=== PATIENT | male | born 1985 | race Caucasian/White ===

== ENCOUNTER 2023-10-09 22:40 | Emergency (ER) | payer OTHER, SELFPAY ==
[2023-10-09 23:21] VITALS: BP 156/97; PULSE 88; RESP 18; TEMP 36.6; O2SAT 96; BMI 30.7
[2023-10-09 23:49] LABS: Internal Control Within Normal Limits; Strep A Antigen Screen Negative
--- NOTE | 2023-10-10 00:14 | PC.NURSE ---
Pt reports sore throat and sinus pressure not relieved with prescribed analgesics. Throat is red and irritated upon assessment, pt able to manage airway. Pt had procedure on deviated septum and had uvula trimmed this past week.
--- NOTE | 2023-10-10 00:23 | ED_ITS ---
HPI - General Adult General Chief complaint: Dental/Oral Stated complaint: Sore Throat, Post Operative Pain Time Seen by Provider: 10/10/23 00:20 Source: patient Mode of arrival: walk-in History of Present Illness HPI narrative: sinus nasal surgery and uvulectomy this past week by ENT. has nasal stents in place. Now presents complaining of increased sinus pressure. No fever or dizziness. Has frontal headache. No nausea Related Data Home Medications Medication Instructions Recorded Confirmed hydrocodone 5 mg-acetaminophen 325 1 tab PO Q4H PRN pain 10/09/23 10/09/23 mg tablet Allergies Allergy/AdvReac Type Severity Reaction Status Date / Time No Known Drug Allergies Allergy Verified 10/09/23 23:30 Review of Systems ROS Status of ROS 10 or more systems reviewed and unremark able except as noted in history and below [facility] Medical History (Updated 10/10/23 @ 06:32 by Donald Holloway MD) Deviated nasal septum ?J34.2 - Deviated nasal septum (ICD-10) Surgical History (Updated 10/09/23 @ 23:47 by Geetha Maldonado) H/O sinus surgery ?Z98.890 - Other specified postprocedural states (ICD-10) Social History Smoking status: Never smoker Exam Narrative Exam Narrative: maxillary sinus tenderness plastic nasal stents in place Constitutional Vital Signs, click to edit/add: Last Vital Signs Temp 97.9 F 10/09/23 23:21 Pulse 93 H 10/10/23 04:09 Resp 16 10/10/23 04:09 BP 136/98 H 10/10/23 04:09 Pulse Ox 96 10/10/23 04:09 O2 Del Method Room Air 10/10/23 04:09 Common normals: no apparent distress, average body habitus, oriented x3, no limitations, healthy appearing, alert and well nourished [facility] Common normals: normocephalic and head/scalp atraumatic Face and sinus: normal facial exam Eye Common normals: PERRL and EOMs intact bilaterally Pupil: PERRL Respiratory Common normals: normal respiratory effort, no retractions and no use of accessory muscles Cardio Common normals: regular rate, regular rhythm, S1 normal heart sound and S2 normal heart sound GI Common normals: Normal to inspection, nondistended, normoactive bowel sounds present, soft to palpation and non-tender Extremity Common normals: normal to inspection and full ROM Neuro Common normals: oriented x3, moves all extremities and no focal motor deficits Psych Appearance: grossly normal Course Vital Signs Vital signs: Vital Signs Temperature 97.9 F 10/09/23 23:21 Pulse Rate 88 10/09/23 23:21 Respiratory Rate 18 10/09/23 23:21 Blood Pressure 156/97 H 10/09/23 23:21 Pulse Oximetry 96 10/09/23 23:21 Oxygen Delivery Method Room Air 10/09/23 23:21 Temperature 97.9 F 10/09/23 23:21 Pulse Rate 93 H 10/10/23 04:09 Respiratory Rate 16 10/10/23 04:09 Blood Pressure 136/98 H 10/10/23 04:09 Pulse Oximetry 96 10/10/23 04:09 Oxygen Delivery Method Room Air 10/10/23 04:09 Medical Decision Making MDM Narrative Medical decision making narrative: patient is s/p surgery as above by ENT one week ago. Has nasal plastic stents in place. CT with evidence of chronic maxillary sinusitis. No acute findings. Patient medicated for his pain with solumedrol and Toradol. He is feeling better. Discharged home to follow up with ENT Lab Data Labs: Lab Results 10/09/23 10/10/23 Range/Units 23:35 00:45 WBC 8.5 (4.0-11.0) 10^3/uL RBC 5.23 (4.70-6.10) 10^6/uL Hgb 15.4 (14.0-18.0) g/dL Hct 44.9 (42.0-54.0) % MCV 85.9 (80.0-94.0) fL MCH 29.4 (25.9-34.0) pg MCHC 34.3 (29.9-35.2) g/dL RDW 12.2 (11.0-15.0) % Plt Count 272 (150-450) 10^3/uL MPV 11.0 (9.5-13.5) fL Neut % (Auto) 43.6 (43.0-75.0) % Lymph % (Auto) 29.6 (20.5-60.0) % [place] % (Auto) 8.5 (1.7-12.0) % Eos % (Auto) 17.4 H (0.9-7.0) % Baso % (Auto) 0.8 (0.2-2.0) % Neut # (Auto) 3.7 (1.4-6.5) 10^3/uL Lymph # (Auto) 2.5 (1.2-3.8) 10^3/uL [place] # (Auto) 0.7 (0.3-0.8) 10^3/uL Eos # (Auto) 1.5 H (0.0-0.7) 10^3/uL Baso # (Auto) 0.1 (0.0-0.1) 10^3/uL Abs Immat Gran (auto) 0.01 (0.00-0.03) 10^3/uL Imm/Tot Granulo (auto) 0.1 (0.0-0.5) % Sodium 136 (136-145) mmol/L Potassium 3.7 (3.5-5.1) mmol/L Chloride 99 (98-107) mmol/L Carbon Dioxide 31.9 (21.0-32.0) mmol/L Anion Gap 8.8 BUN 22.0 H (7.0-18.0) mg/dL Creatinine 0.89 (0.70-1.30) mg/dL Est GFR ( Amer) >60 (>=60) Est GFR (Non-Af Amer) >60 (>=60) BUN/Creatinine Ratio 24.7 Glucose 112 H (74-106) mg/dL Calcium 9.4 (8.5-10.1) mg/dL Streptococcus Screen Negative Imaging Data Chest x-ray: Radiologist's impression: Name: JENI TERRAZAS MRN: [id number] date: 1985 Sex: M Assigned Patient Location: ER Current Patient Location: ER Accession/Order Number: [id number] Exam Date: 10/10/2023 00:50 Report Date: 10/10/2023 01:26 At the request of: DONALD HOLLOWAY Procedure: CT soft tissue neck w con EXAMINATION: CT soft tissue neck w con HISTORY: post op pain ; sinus surgery and uvula trimmed last week; sore throat, swollen glands, headache COMPARISON: No relevant comparison available. TECHNIQUE: Axial, Coronal, and Sagittal CT images created with IV contrast. Dose reduction techniques were achieved by using automated exposure control and/or adjustment of mA and/or kV according to patient size and/or use of iterative reconstruction technique. FINDINGS: NASOPHARYNX: No asymmetry of the fossae of Rosenmuller and torus tubarius. ORAL CAVITY: No visible mass. OROPHARYNX: No asymmetry of the facial and lingual tonsils. HYPOPHARYNX: No mass or other visible lesion. LARYNX: No mass or asymmetry of the vocal cords. SINUSES: Mucosal thickening within the maxillary sinuses. NECK GLANDS: No visible abnormality of the parotid, submandibular, and thyroid glands. LYMPH NODES: No pathological-appearing or enlarged lymph nodes. VASCULATURE: No suspicious abnormality. BONES: C6-C7 marked degenerative disc disease with large posterior disc-osteophyte complex narrowing the central canal and bilateral foramen. OTHER: Geographic shaped 1.5 cm opacity within right lung apex. CT/CT soft tissue neck w con IMPRESSION: 1. No abscess, fluid collection, or significant inflammatory changes. 2. Bilateral maxillary chronic sinusitis. 3. Marked degenerative disc disease C6-C7. Electronically authenticated by: DEEPAK JIMENEZ Date: 10/10/2023 01:26 Dictated By: Deepak Jimenez M.D. Signed By: Discharge Plan Discharge Chief Complaint: Dental/Oral Clinical Impression: Chronic sinusitis, Frontal sinus pain Patient Disposition: Home, Self-Care Time of Disposition Decision: 04:00 Condition: Fair Mode of Transportation: Private Vehicle Prescriptions / Home Meds: No Action hydrocodone-acetaminophen 5-325 mg tablet 1 tab PO Q4H PRN (Reason: pain) Patient Comments: pt has been taking 1/2 ta Instructions: Rhinosinusitis (ED) Additional Instructions: follow up with your surgeon Stand Alone Forms: Portal Instructions Referrals: Physician,Non-Staff, MD [Primary Care Provider] - 1 week Discharge Date/Time: 10/10/23 04:12
--- NOTE | 2023-10-10 00:26 | CT_ITS ---
[address] [address] Patient Name: JENI TERRAZAS MRN: [id number] date: 1985 Sex: M Assigned Patient Location: ER Current Patient Location: ER Accession/Order Number: [id number] Exam Date: 10/10/2023 00:50 Report Date: 10/10/2023 01:26 At the request of: SANCHO ESCALANTE Procedure: CT soft tissue neck w con EXAMINATION: CT soft tissue neck w con HISTORY: post op pain ; sinus surgery and uvula trimmed last week; sore throat, swollen glands, headache COMPARISON: No relevant comparison available. TECHNIQUE: Axial, Coronal, and Sagittal CT images created with IV contrast. Dose reduction techniques were achieved by using automated exposure control and/or adjustment of mA and/or kV according to patient size and/or use of iterative reconstruction technique. FINDINGS: NASOPHARYNX: No asymmetry of the fossae of Rosenmuller and torus tubarius. ORAL CAVITY: No visible mass. OROPHARYNX: No asymmetry of the facial and lingual tonsils. HYPOPHARYNX: No mass or other visible lesion. LARYNX: No mass or asymmetry of the vocal cords. SINUSES: Mucosal thickening within the maxillary sinuses. NECK GLANDS: No visible abnormality of the parotid, submandibular, and thyroid glands. LYMPH NODES: No pathological-appearing or enlarged lymph nodes. VASCULATURE: No suspicious abnormality. BONES: C6-C7 marked degenerative disc disease with large posterior disc-osteophyte complex narrowing the central canal and bilateral foramen. OTHER: Geographic shaped 1.5 cm opacity within right lung apex. CT/CT soft tissue neck w con IMPRESSION: 1. No abscess, fluid collection, or significant inflammatory changes. 2. Bilateral maxillary chronic sinusitis. 3. Marked degenerative disc disease C6-C7. Electronically authenticated by: DENISSE MIRELES Date: 10/10/2023 01:26
[2023-10-10] MEDS: METHYLPREDNISOLONE SOD SUCC PF 125 MG/2 ML VIAL IVP (00:49)
[2023-10-10 01:06] LABS: Basophils Absolute Auto 0.1 10^3/uL (0.0-0.1); Basophils Percent Auto 0.8 % (0.2-2.0); Eosinophils Absolute Auto 1.5 10^3/uL (0.0-0.7); Eosinophils Percent Auto 17.4 % (0.9-7.0); Hematocrit 44.9 % (42.0-54.0); Hemoglobin 15.4 g/dL (14.0-18.0); Immature Granulocytes Abs Auto 0.01 10^3/uL (0.00-0.03); Immature Granulocytes Pct Auto 0.1 % (0.0-0.5); Lymphocytes Absolute Auto 2.5 10^3/uL (1.2-3.8); Lymphocytes Percent Auto 29.6 % (20.5-60.0); Mean Corpuscular HGB Conc 34.3 g/dL (29.9-35.2); Mean Corpuscular Hemoglobin 29.4 pg (25.9-34.0); Mean Corpuscular Volume 85.9 fL (80.0-94.0); Monocytes Absolute Auto 0.7 10^3/uL (0.3-0.8); Monocytes Percent Auto 8.5 % (1.7-12.0); Neutrophils Absolute Auto 3.7 10^3/uL (1.4-6.5); Neutrophils Percent Auto 43.6 % (43.0-75.0); Platelet Count 272 10^3/uL (150-450); Red Blood Count 5.23 10^6/uL (4.70-6.10); Red Cell Distribution Width 12.2 % (11.0-15.0); White Blood Count 8.5 10^3/uL (4.0-11.0)
[2023-10-10 01:14] LABS: Anion Gap 8.8; BUN Creatinine Ratio 24.7; Calcium 9.4 mg/dL (8.5-10.1); Carbon Dioxide 31.9 mmol/L (21.0-32.0); Chloride 99 mmol/L (98-107); Estimated GFR (African America >60 (>=60); Estimated GFR (Non-African Ame >60 (>=60); Glucose 112 mg/dL (74-106); Potassium 3.7 mmol/L (3.5-5.1); Sodium 136 mmol/L (136-145)
[2023-10-10] MEDS: KETOROLAC TROMETHAMINE 30 MG/ML VIAL IVP (02:19)
[2023-10-10] MEDS: KETOROLAC TROMETHAMINE 10 MG TABLET PO (04:08)
[2023-10-10 04:09] VITALS: BP 136/98; PULSE 93; RESP 16; O2SAT 96
== END 2023-10-10 04:12 | disposition home or self-care (01) ==
PROVIDERS: Emergency Provider Internal Medicine
DX: R51.9 Headache, unspecified (principal); J32.0 Chronic maxillary sinusitis; Z98.890 Other specified postprocedural states; M50.30 Other cervical disc degeneration, unspecified cervical region
CPT/HCPCS: 36415; 70491; 80048; 85025; 87070; 87880; 96374; 96375; 99284; J2930; Q9967

== ENCOUNTER 2024-04-29 18:24 | Emergency (ER) | payer OTHER, SELFPAY ==
[2024-04-29 18:29] VITALS: BP 136/85; PULSE 88; TEMP 36.8; O2SAT 98; BMI 30.7
--- NOTE | 2024-04-29 18:32 | PC.NURSE ---
red raised rash to bilat arms, started yesterday. Er DR assessment in triage room at this time
--- NOTE | 2024-04-29 18:39 | ED_ITS ---
HPI HPI - General Adult General Chief complaint: Skin/Abscess/Foreign Body Stated complaint: SKIN Time Seen by Provider: 04/29/24 18:28 Source: patient Mode of arrival: walk-in History of Present Illness HPI narrative: 38-year-old male to the emergency department chief complaint of exposure to poison ju. Patient reports that yesterday he was taking down some andrea and been exposed to poison ju as he now has a erythematous rash to his forearms that are exposed. Similar to past episodes of poison ju. No medical problems. Related Data Home Medications ?Medication ?Instructions ?Recorded ?Confirmed hydrocodone 5 mg-acetaminophen 325 1 tab PO Q4H PRN pain 10/09/23 10/09/23 mg tablet Allergies Allergy/AdvReac Type Severity Reaction Status Date / Time No Known Drug Allergies Allergy Verified 10/09/23 23:30 Opioid HPI Opioid Management Most Recent Opioid Data: Last Pain Scale 8 10/10/23 02:19 Review of Systems ROS Status of ROS 10 or more systems reviewed and unremark able except as noted in history and below PFSH [facility] Medical History (Updated 04/29/24 @ 18:34 by Adrian Lr MD) Deviated nasal septum ?J34.2 - Deviated nasal septum (ICD-10) Surgical History (Updated 10/09/23 @ 23:47 by Geetha Maldonado) H/O sinus surgery ?Z98.890 - Other specified postprocedural states (ICD-10) Social History Smoking status: Never smoker Exam Narrative Exam Narrative: VITALS: I have reviewed the triage vital signs. GENERAL: Well developed, well appearing adult in no acute distress. NEURO: Alert and oriented. Moves all extremities. Face is symmetric and expressive. EYES: PERRL. No scleral icterus or conjunctival injection. No discharge. HENT: Normocephalic, atraumatic. Hearing is grossly intact. Nares grossly patent and without discharge. Mucous membranes moist. NECK: No JVD. Patient moves neck without restriction. EXTREMITIES: Symmetric muscle bulk. No joint swelling. No clubbing, cyanosis, or deformity. SKIN: Warm and dry. Normal turgor. No rash or lesions appreciated. Contact dermatitis to the forearms. PSYCH: Mood, affect, and interaction is appropriate to the setting. Constitutional Vital Signs, click to edit/add: Last Vital Signs Temp 98.2 F 04/29/24 18:29 Pulse 88 04/29/24 18:29 Resp 16 04/29/24 18:29 BP 136/85 04/29/24 18:29 Pulse Ox 98 04/29/24 18:29 O2 Del Method Room Air 04/29/24 18:29 Course Vital Signs Vital signs: Vital Signs Temperature 98.2 F 04/29/24 18:29 Pulse Rate 88 04/29/24 18:29 Respiratory Rate 16 04/29/24 18:29 Blood Pressure 136/85 04/29/24 18:29 Pulse Oximetry 98 04/29/24 18:29 Oxygen Delivery Method Room Air 04/29/24 18:29 Temperature 98.2 F 04/29/24 18:29 Pulse Rate 88 04/29/24 18:29 Respiratory Rate 16 04/29/24 18:29 Blood Pressure 136/85 04/29/24 18:29 Pulse Oximetry 98 04/29/24 18:29 Oxygen Delivery Method Room Air 04/29/24 18:29 Medical Decision Making MDM Narrative Medical decision making narrative: Well-appearing 38-year-old male to the emergency department chief complaint of poison ju exposure. He has obvious contact dermatitis to the forearms. Kenalog and dexamethasone given. Follow-up with PCP. Return precaution discussed. All questions were answered. Patient was discharged home. Discharge Plan Discharge Stand Alone Forms: Portal Instructions Chief Complaint: Skin/Abscess/Foreign Body Clinical Impression: Poison ju Patient Disposition: Home, Self-Care Time of Disposition Decision: 18:34 Condition: Good Mode of Transportation: Private Vehicle Prescriptions / Home Meds: No Action hydrocodone-acetaminophen 5-325 mg tablet 1 tab PO Q4H PRN (Reason: pain) Patient Comments: pt has been taking 1/2 ta Print Language: Italian Instructions: Poison Ju (ED) Referrals: Physician,Non-Staff, MD [Primary Care Provider] - 1 week
[2024-04-29] MEDS: DEXAMETHASONE SOD PHOS 10 MG/ML VIAL PO (18:51)
[2024-04-29] MEDS: TRIAMCINOLONE ACETONIDE 40 MG/ML VIAL IM (18:52)
== END 2024-04-29 18:55 | disposition home or self-care (01) ==
PROVIDERS: Emergency Provider Student in an Organized Health Care Education/Training Program
DX: L23.7 Allergic contact dermatitis due to plants, except food (principal)
CPT/HCPCS: 96372; 99284; J1100; J3301

== ENCOUNTER 2024-05-21 00:08 | Emergency (ER) | payer OTHER, SELFPAY ==
[2024-05-21 00:14] VITALS: BP 132/81; PULSE 85; TEMP 36.7; BMI 30.7
--- OUTSIDE RECORDS SUMMARY | 2024-05-21 00:25 | XMS_ITS | CCD ---
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 [place], [place] [address]Dr. Manuel Harrison CT ABD/PELVIS WO CONon 08-25 CT ABD/PELVIS WO CON EXAMINATION: CT ABD/PELVIS WO CON, 08/24/2022 10:02 PM EST HISTORY: CALCULUS OF KIDNEY COMPARISON: None. TECHNIQUE: CT scan of the abdomen and pelvis was performed without IV contrast. CT dose reduction technique was used, including Automated Exposure Control. FINDINGS: There is mild bibasilar atelectasis. There are nodular densities in the right lower lobe measuring up to 0.9 cm (series 3, image 21). Abdomen: Please note that the sensitivity for detection of focal lesions or vascular disease is markedly reduced without intravenous contrast. The liver and spleen are unremarkable. There is no intra or extrahepatic biliary duct dilatation. The gallbladder is unremarkable. There is a 2 mm nonobstructive left renal calculus. Otherwise, the pancreas, adrenal glands, kidneys, and bowel loops, including the appendix, are unremarkable. There is no mesenteric or retroperitoneal lymphadenopathy. Pelvis: The bladder and rectum are unremarkable. There is no iliac or inguinal lymphadenopathy. There is mild atherosclerotic disease. Bone windows show no aggressive osseous lesions. IMPRESSION: 1. Nonobstructive left renal calculus with no ureteral calculus seen. 2. Normal appendix. 3. Nodular densities in the right lower lobe measuring up to 0.9 cm. This could represent developing infection. Consider follow-up imaging to document resolution as clinically indicated. Electronically authenticated by: Lauren LOVE Date: 2022-08-24 23:23 Normal [facility] ER URINE PROFILEon 2 Bilirubin Ql (U) Negative Normal NEGATIVE [facility] Comment on above: Performed By: #### E RUR #### [facility] [address] [place] [address] Dr. Manuel Harrison Clarity (U) CLEAR Normal CLEAR [facility] Comment on above: Performed By: #### E RUR #### [facility] [address] [place] [address] Dr. Manuel Harrison Color (U) YELLOW Normal YELLOW [facility] Comment on above: Performed By: #### E RUR #### [facility] [address] [place] [address] Dr. Manuel Harrison ERUAHD A micrscopic examina tion will be performed if indicated. Normal [facility] Comment on above: Performed By: #### E RUR #### [facility] [address] [place] [address] Dr. Manuel Harrison Glucose Ql (U) Negative Normal NEGATIVE [facility] Comment on above: Performed By: #### E RUR #### [facility] [address] [place] [address] Dr. Manuel Harrison Hemoglobin Ql (U) Negative Normal NEGATIVE [facility] Comment on above: Performed By: #### E RUR #### [facility] [address] [place] [address] Dr. Manuel Harrison Ketones Ql (U) Negative Normal NEGATIVE [facility] Comment on above: Performed By: #### E RUR #### [facility] [address] [place] [address] Dr. Manuel Harrison LEUKOCYTES Negative Normal NEGATIVE [facility] Comment on above: Performed By: #### E RUR #### [facility] [address] [place] [address] Dr. Manuel Harrison Nitrite Ql (U) Negative Normal NEGATIVE [facility] Comment on above: Performed By: #### E RUR #### [facility] [address] [place] [address] Dr. Manuel Harrison pH (U) 7.0 [pH] Normal 5-9 [facility] Comment on above: Performed By: #### E RUR #### [facility] [address] [place] [address] Dr. Manuel Harrison SPEC GRAVITY 1.025 Normal 1.005-<=1.02 5 [facility] Comment on above: Performed By: #### E RUR #### [facility] [address] [place] [address] Dr. Manuel Harrison UA PROTEIN Negative Normal NEGATIVE/ TRACE [facility] Comment on above: Performed By: #### E RUR #### [facility] [address] [place] [address] Dr. Manuel Harrison UR MICRO IND NOT INDICATED Normal [facility] Comment on above: Performed By: #### E RUR #### [facility] [address] [place] [address] Dr. Manuel Harrison Urobilinogen Qn (U) 4 {Chika'U}/dL Abnormal 0.2 - 1.0 [facility] Comment on above: Performed By: #### E RUR #### [facility] [address] [place] [address] Dr. Manuel Harrison PROF 14(COMP METB)on 022 Albumin [Mass/Vol] 3.9 g/dL Normal 3.4-5.0 [facility] Comment on above: Performed By: #### C MP #### [facility] [address] [address] [address] Manuel Harrison Albumin/Globulin [Mass ratio] 1.2 {ratio} Normal [facility] Comment on above: Performed By: #### C MP #### [facility] [address] [address] [address] Manuel Harrison ALP [Catalytic activity/Vol] 56 U/L Normal 46-116 [facility] Comment on above: Performed By: #### C MP #### [facility] [address] [place] [address] Dr. Manuel Harrison ALT [Catalytic activity/Vol] 38 U/L Normal 16-63 [facility] Comment on above: Performed By: #### C MP #### [facility] [address] [address] [address] Manuel Harrison Anion gap [Moles/Vol] 8.6 mmol/L Normal [facility] Comment on above: Performed By: #### C MP #### [facility] [address] [place] [address] Dr. Manuel Harrison AST [Catalytic activity/Vol] 25 U/L Normal 15-37 [facility] Comment on above: Performed By: #### C MP #### [facility] [address] [address] [address] Manuel Harrison Bilirubin [Mass/Vol] 0.4 mg/dL Normal 0.2-1.0 [facility] Comment on above: Performed By: #### C MP #### [facility] [address] [place] [address] Dr. Manuel Harrison Calcium [Mass/Vol] 8.7 mg/dL Normal 8.5-10.1 [facility] Comment on above: Performed By: #### C MP #### [facility] [address] [place] [address] Dr. Manuel Harrison Chloride [Moles/Vol] 105 mmol/L Normal 98-107 [facility] Comment on above: Performed By: #### C MP #### [facility] [address] [address] [address] Manuel Harrison CO2 [Moles/Vol] 27.8 mmol/L Normal 21.0-32.0 [facility] Comment on above: Performed By: #### C MP #### [facility] [address] [address] [address] Manuel Harrison Creatinine [Mass/Vol] 1.00 mg/dL Normal 0.70-1.30 [facility] Comment on above: Performed By: #### C MP #### [facility] [address] [place] [address] Dr. Manuel Harrison EGFR-AF ENGLISH >60 Normal >=60 [facility] Comment on above: Performed By: #### C MP #### [facility] [address] [place] [address] Dr. Manuel Harrison EGFR-NON AF ENGLISH >60 Normal >=60 [facility] Comment on above: Performed By: #### C MP #### [facility] [address] [address] [address] Manuel Harrison Globulin (S) [Mass/Vol] 3.3 g/dL Normal [facility] Comment on above: Performed By: #### C MP #### [facility] [address] [place] [address] Dr. Manuel Harrison Glucose [Mass/Vol] 108 mg/dL Critically high 74-106 [facility] Comment on above: Performed By: #### C MP #### [facility] [address] [place] [address] Dr. Manuel Harrison Potassium [Moles/Vol] 3.4 mmol/L Critically low 3.5-5.1 [facility] Comment on above: Performed By: #### C MP #### [facility] [address] [place] [address] Dr. Manuel Harrison Protein [Mass/Vol] 7.2 g/dL Normal 6.4-8.2 [facility] Comment on above: Performed By: #### C MP #### [facility] [address] [address] [address] Manuel Harrison Sodium [Moles/Vol] 138 mmol/L Normal 136-145 [facility] Comment on above: Performed By: #### C MP #### [facility] [address] [address] [address] Manuel Harrison Urea nitrogen [Mass/Vol] 21.0 mg/dL Critically high 7.0-18.0 [facility] Comment on above: Performed By: #### C MP #### [facility] [address] [address] [address] Manuel Harrison Urea nitrogen/Creatini ne [Mass ratio] 21.0 mg/mg Normal [facility] Comment on above: Performed By: #### C MP #### [facility] [address] [address] ANKLE LT WO CONon 022 CT ANKLE LT WO CON EXAMINATION: CT ANKLE LT WO CON HISTORY: Pseudarthrosis after fusion or arthrodesis COMPARISON: XR foot left 03/17/2022, 01/18/2022, CT ankle left 11/24/2021 TECHNIQUE: Multi-planar CT images were created without IV contrast. Dose reduction techniques were achieved by using automated exposure control and/or adjustment of mA and/or kV according to patient size and/or use of iterative reconstruction technique. FINDINGS: BONES: Prior revision and mechanical fusion of the posterior talocalcaneal joint without evidence of hardware fracture or loosening. No bone fracture or dislocation.. Minimal degenerative changes of the ankle joint and midfoot. Evidence of bone harvesting from anterior distal tibia. SOFT TISSUES: Mild subcutaneous edema anterior ankle and dorsolateral to proximal foot. EFFUSION: None visible. OTHER: Negative. IMPRESSION: 1. Stable surgical changes without evidence of hardware failure or change in alignment. 2. Stable bony changes without appreciable acute abnormality or suspicious findings. 3. Mild subcutaneous edema. Electronically authenticated by: DENISSE MIRELES Date: 2022-04-07 08:34 Normal [facility] Complete Blood Count with Au to Diffon 03-08-2022 Basophils (Bld) [#/Vol] 0.04 10*3/uL Normal 0.00-0.20 [facility] Comment on above: Performed By: #### C MP, FERR, FT4, LIPD, TSH, FE Prof, CBCAD, MG, ESR #### [facility] [address], [place] [id number] Basophils/100 WBC (Bld) 0.9 % Normal [facility] Comment on above: Performed By: #### C MP, FERR, FT4, LIPD, TSH, FE Prof, CBCAD, MG, ESR #### [facility] [address], [place] [id number] Eosinophils (Bld) [#/Vol] 0.24 10*3/uL Normal 0.02-0.50 [facility] Comment on above: Performed By: #### C MP, FERR, FT4, LIPD, TSH, FE Prof, CBCAD, MG, ESR #### [facility] [address], [place] [id number] Eosinophils/100 WBC (Bld) 5.3 % Normal [facility] Comment on above: Performed By: #### C MP, FERR, FT4, LIPD, TSH, FE Prof, CBCAD, MG, ESR #### [facility] [address], [place] [id number] Erythrocyte distribution width (RBC) [Ratio] 13.4 % Normal 11.0-15.0 [facility] Comment on above: Performed By: #### C MP, FERR, FT4, LIPD, TSH, FE Prof, CBCAD, MG, ESR #### [facility] [address], [place] [id number] Hematocrit (Bld) [Volume fraction] 47.8 % Normal 38.5-50.0 [facility] Comment on above: Performed By: #### C MP, FERR, FT4, LIPD, TSH, FE Prof, CBCAD, MG, ESR #### [facility] [address], [place] [id number] Hemoglobin (Bld) [Mass/Vol] 15.9 g/dL Normal 13.0-17.1 [facility] Comment on above: Performed By: #### C MP, FERR, FT4, LIPD, TSH, FE Prof, CBCAD, MG, ESR #### [facility] [address], [place] [id number] Lymphocytes (Bld) [#/Vol] 1.9 10*3/uL Normal 0.9-3.9 [facility] Comment on above: Performed By: #### C MP, FERR, FT4, LIPD, TSH, FE Prof, CBCAD, MG, ESR #### [facility] [address], [place] [id number] Lymphocytes/100 WBC (Bld) 42.6 % Normal [facility] Comment on above: Performed By: #### C MP, FERR, FT4, LIPD, TSH, FE Prof, CBCAD, MG, ESR #### [facility] [address], [place] [id number] MCH (RBC) [Entitic mass] 29.2 pg Normal 27.0-33.0 [facility] Comment on above: Performed By: #### C MP, FERR, FT4, LIPD, TSH, FE Prof, CBCAD, MG, ESR #### [facility] [address], [place] [id number] MCHC (RBC) [Mass/Vol] 33.3 g/dL Normal 32.0-36.0 [facility] Comment on above: Performed By: #### C MP, FERR, FT4, LIPD, TSH, FE Prof, CBCAD, MG, ESR #### [facility] [address], [place] [id number] MCV (RBC) [Entitic vol] 88 fL Normal 80-100 [facility] Comment on above: Performed By: #### C MP, FERR, FT4, LIPD, TSH, FE Prof, CBCAD, MG, ESR #### [facility] [address], [place] [id number] Monocytes (Bld) [#/Vol] 0.3 10*3/uL Normal 0.2-0.9 [facility] Comment on above: Performed By: #### C MP, FERR, FT4, LIPD, TSH, FE Prof, CBCAD, MG, ESR #### [facility] [address], [place] [id number] Monocytes/100 WBC (Bld) 6.7 % Normal [facility] Comment on above: Performed By: #### C MP, FERR, FT4, LIPD, TSH, FE Prof, CBCAD, MG, ESR #### [facility] [address], [place] [id number] Neutrophils (Bld) [#/Vol] 2.0 10*3/uL Normal 1.5-7.8 [facility] Comment on above: Performed By: #### C MP, FERR, FT4, LIPD, TSH, FE Prof, CBCAD, MG, ESR #### [facility] [address], [place] [id number] Neutrophils/100 WBC (Bld) 44.3 % Normal [facility] Comment on above: Performed By: #### C MP, FERR, FT4, LIPD, TSH, FE Prof, CBCAD, MG, ESR #### [facility] [address], [place] [id number] Platelet mean volume (Bld) [Entitic vol] 11.70 fL Normal 7.50-12.50 [facility] Comment on above: Performed By: #### C MP, FERR, FT4, LIPD, TSH, FE Prof, CBCAD, MG, ESR #### [facility] [address], [place] [id number] Platelets (Bld) [#/Vol] 213 10*3/uL Normal 140-400 [facility] Comment on above: Performed By: #### C MP, FERR, FT4, LIPD, TSH, FE Prof, CBCAD, MG, ESR #### [facility] [address], [place] [id number] RBC (Bld) [#/Vol] 5.45 10*6/uL Normal 4.20-5.80 [facility] Comment on above: Performed By: #### C MP, FERR, FT4, LIPD, TSH, FE Prof, CBCAD, MG, ESR #### [facility] [address], [place] [id number] RDW-SD 42.8 fL Normal 37.0-50.0 [facility] Comment on above: Performed By: #### C MP, FERR, FT4, LIPD, TSH, FE Prof, CBCAD, MG, ESR #### [facility] [address], [place] [id number] WBC (Bld) [#/Vol] 4.5 10*3/uL Normal 3.8-11.0 [facility] Comment on above: Performed By: #### C MP, FERR, FT4, LIPD, TSH, FE Prof, CBCAD, MG, ESR #### [facility] [address], [place] [id number] Comprehensive Metabolic Pane [facility] 03-08-2022 Albumin [Mass/Vol] 4.7 g/dL Normal 3.6-5.1 [facility] Comment on above: Performed By: #### C MP, FERR, FT4, LIPD, TSH, FE Prof, CBCAD, MG, ESR #### [facility] [address], [place] [id number] Albumin/Globulin [Mass ratio] 1.8 {ratio} Normal 1.0-2.5 [facility] Comment on above: Performed By: #### C MP, FERR, FT4, LIPD, TSH, FE Prof, CBCAD, MG, ESR #### [facility] [address], [place] [id number] ALP [Catalytic activity/Vol] 71 U/L Normal 40-129 [facility] Comment on above: Performed By: #### C MP, FERR, FT4, LIPD, TSH, FE Prof, CBCAD, MG, ESR #### [facility] [address], [place] [id number] ALT [Catalytic activity/Vol] 39 U/L Normal 9-46 [facility] Comment on above: Result Comment: 09/16 Female reference range changed. Performed By: #### C MP, FERR, FT4, LIPD, TSH, FE Prof, CBCAD, MG, ESR #### [facility] [address], [place] [id number] Anion gap [Moles/Vol] 17 mmol/L Normal 12-20 [facility] Comment on above: Result Comment: Effe ctive 10/22/2019 reference range changed. Performed By: #### C MP, FERR, FT4, LIPD, TSH, FE Prof, CBCAD, MG, ESR #### [facility] [address], [place] [id number] AST [Catalytic activity/Vol] 27 U/L Normal 10-40 [facility] Comment on above: Performed By: #### C MP, FERR, FT4, LIPD, TSH, FE Prof, CBCAD, MG, ESR #### [facility] [address], [place] [id number] Bilirubin [Mass/Vol] 0.42 mg/dL Normal 0.30-1.20 [facility] Comment on above: Performed By: #### C MP, FERR, FT4, LIPD, TSH, FE Prof, CBCAD, MG, ESR #### [facility] [address], [place] [id number] BUN/CREA 16 Ratio Normal 6-22 [facility] Comment on above: Performed By: #### C MP, FERR, FT4, LIPD, TSH, FE Prof, CBCAD, MG, ESR #### [facility] [address], [place] [id number] Calcium [Mass/Vol] 9.6 mg/dL Normal 8.6-10.2 [facility] Comment on above: Performed By: #### C MP, FERR, FT4, LIPD, TSH, FE Prof, CBCAD, MG, ESR #### [facility] [address], [place] [id number] Chloride [Moles/Vol] 105 mmol/L Normal 98-107 [facility] Comment on above: Performed By: #### C MP, FERR, FT4, LIPD, TSH, FE Prof, CBCAD, MG, ESR #### [facility] [address], [place] [id number] CO2 [Moles/Vol] 25 mmol/L Normal 20-31 [facility] Comment on above: Performed By: #### C MP, FERR, FT4, LIPD, TSH, FE Prof, CBCAD, MG, ESR #### [facility] [address], [place] [id number] Creatinine [Mass/Vol] 0.8 mg/dL Normal 0.7-1.4 [facility] Comment on above: Performed By: #### C MP, FERR, FT4, LIPD, TSH, FE Prof, CBCAD, MG, ESR #### [facility] [address], [place] [id number] eGFRAA 137 mL/min/1.73m2 Normal >60 [facility] Comment on above: Performed By: #### C MP, FERR, FT4, LIPD, TSH, FE Prof, CBCAD, MG, ESR #### [facility] [address], [place] [id number] eGFRNAA 113 mL/min/1.73m2 Normal >60 [facility] Comment on above: Performed By: #### C MP, FERR, FT4, LIPD, TSH, FE Prof, CBCAD, MG, ESR #### [facility] [address], [place] [id number] Globulin (S) [Mass/Vol] 2.6 g/dL Normal 1.9-3.7 [facility] Comment on above: Performed By: #### C MP, FERR, FT4, LIPD, TSH, FE Prof, CBCAD, MG, ESR #### [facility] [address], [place] [id number] Glucose [Mass/Vol] 98 mg/dL Normal 65-99 [facility] Comment on above: Result Comment: For FASTING Glucose --- ADA reference ranges: Normal 65-99 mg/dl Prediabetes 100-125 Diabetes >/= 126 Performed By: #### C MP, FERR, FT4, LIPD, TSH, FE Prof, CBCAD, MG, ESR #### [facility] [address], [place] [id number] Potassium [Moles/Vol] 4.2 mmol/L Normal 3.5-5.5 [facility] Comment on above: Performed By: #### C MP, FERR, FT4, LIPD, TSH, FE Prof, CBCAD, MG, ESR #### [facility] [address], [place] [id number] Protein [Mass/Vol] 7.3 g/dL Normal 6.1-8.1 [facility] Comment on above: Performed By: #### C MP, FERR, FT4, LIPD, TSH, FE Prof, CBCAD, MG, ESR #### [facility] [address], [place] [id number] Sodium [Moles/Vol] 143 mmol/L Normal 135-146 [facility] Comment on above: Performed By: #### C MP, FERR, FT4, LIPD, TSH, FE Prof, CBCAD, MG, ESR #### [facility] [address], [place] [id number] Urea nitrogen [Mass/Vol] 12 mg/dL Normal 7-25 [facility] Comment on above: Performed By: #### C MP, FERR, FT4, LIPD, TSH, FE Prof, CBCAD, MG, ESR #### [facility] [address], [place] [id number] Ferritinon 03-08-2022 FERR 235.0 ng/mL Normal 30.0-400.0 [facility] Comment on above: Performed By: #### C MP, FERR, FT4, LIPD, TSH, FE Prof, CBCAD, MG, ESR #### [facility] [address], [place] [id number] Free T4on 03-08-2022 Free T4 [Mass/Vol] 0.94 ng/dL Normal 0.80-1.80 [facility] Comment on above: Performed By: #### C MP, FERR, FT4, LIPD, TSH, FE Prof, CBCAD, MG, ESR ####[facility] [address], [place] [id number] Iron Profileon 03-08-2022 %FESAT 21 % Normal 15-60 [facility] Comment on above: Performed By: #### C MP, FERR, FT4, LIPD, TSH, FE Prof, CBCAD, MG, ESR #### [facility] [address], [place] [id number] FE 66 ug/dL Normal 50-180 [facility] Comment on above: Result Comment: Refe rence range change 09/02/2017. Prior reference range F 37-145 ug/dL, M 59-158 ug/dL. Performed By: #### C MP, FERR, FT4, LIPD, TSH, FE Prof, CBCAD, MG, ESR #### [facility] [address], [place] [id number] TIBC 307 ug/dL Normal 250-425 [facility] Comment on above: Performed By: #### C MP, FERR, FT4, LIPD, TSH, FE Prof, CBCAD, MG, ESR #### [facility] [address], [place] [id number] UIBC 241 ug/dL Normal 112-347 [facility] Comment on above: Performed By: #### C MP, FERR, FT4, LIPD, TSH, FE Prof, CBCAD, MG, ESR #### [facility] [address] [place], [place] [id number] Lipid Panelon 03-08-2022 Cholesterol [Mass/Vol] 219 mg/dL High 125-200 [facility] Comment on above: Result Comment: Low risk < 200mg/dL Borderline risk 201-239 mg/dl High risk > or equal to 240 Performed By: #### C MP, FERR, FT4, LIPD, TSH, FE Prof, CBCAD, MG, ESR #### [facility] [address] [place], [place] [id number] Cholesterol in HDL [Mass/Vol] 39 mg/dL Low >40 [facility] Comment on above: Result Comment: High Cardiovascular Risk HDL <40 mg/dL Low Cardiovascular Risk HDL > or equal to 60 mg/dl Performed By: #### C MP, FERR, FT4, LIPD, TSH, FE Prof, CBCAD, MG, ESR #### [facility] [address] [place], [place] [id number] Cholesterol in LDL [Mass/Vol] 157 mg/dL Normal [facility] Comment on above: Result Comment: LDL ATP III CLASSIFICATION LDL less than 100 mg/dl Optimal LDL 100-129 mg/dl Near or above optimal LDL 130-159 Borderline high LDL 160-189 High LDL greater than 189 mg/dl Very High Performed By: #### C MP, FERR, FT4, LIPD, TSH, FE Prof, CBCAD, MG, ESR #### [facility] [address] [place], [place] [id number] Cholesterol in VLDL [Mass/Vol] 23 mg/dL Normal [facility] Comment on above: Performed By: #### C MP, FERR, FT4, LIPD, TSH, FE Prof, CBCAD, MG, ESR #### [facility] [address], [place] [id number] Cholesterol.total /Cholesterol in HDL [Mass ratio] 6 {ratio} Normal [facility] Comment on above: Performed By: #### C MP, FERR, FT4, LIPD, TSH, FE Prof, CBCAD, MG, ESR #### [facility] [address], [place] [id number] Triglyceride [Mass/Vol] 115 mg/dL Normal 30-150 [facility] Comment on above: Result Comment: TRIG ATPIII CLASSIFICATIONS TRIG less than 150 mg/dl Normal TRIG 150-199 mg/dl Borderline High TRIG 200-500 mg/dl High TRIG greather than 500 mg/dl Very High Performed By: #### C MP, FERR, FT4, LIPD, TSH, FE Prof, CBCAD, MG, ESR #### [facility] [address] [place], [place] [id number] Magnesiumon 03-08-2022 Magnesium [Mass/Vol] 2.0 mg/dL Normal 1.5-2.3 [facility] Comment on above: Performed By: #### C MP, FERR, FT4, LIPD, TSH, FE Prof, CBCAD, MG, ESR #### [facility] [address], [place] [id number] Prostatic Specific Antigen, Totalon 03-08-2022 TPSA 0.709 ng/mL Normal <4.000 [facility] Comment on above: Result Comment: PSA Test Method: ECLIA/Jeane e 601 Performed By: #### P SA #### [facility] [address], [place] [id number] RBC Sedimentation Rateon ESR (Bld) [Velocity] 6.00 mm/h Normal 0.00-15.00 [facility] Comment on above: Performed By: #### C MP, FERR, FT4, LIPD, TSH, FE Prof, CBCAD, MG, ESR ####[facility] [id number] [place], [place] [id number] TSHon 03-08-2022 TSH 2.480 uIU/mL Normal 0.400-4.500 [facility] Comment on above: Performed By: #### C MP, FERR, FT4, LIPD, TSH, FE Prof, CBCAD, MG, ESR ####[facility] [id number] [place], [place] [id number] Vitamin B12on 03-08-2022 Cobalamin (Vitamin B12) [Mass/Vol] 280 pg/mL Normal 211-946 [facility] Comment on above: Performed By: #### B 12 #### [facility] [address], [place] [id number] ACID FAST SMEAR AND CXon Acid Fast Culture Negative Normal [facility] Comment on above: Result Comment: No a fabian fast bacilli isolated after 6 weeks. Performed By: #### A FB ####[facility] [id number] [address]Dr. Manuel Harrison Acid Fast Smear Negative Normal [facility] Comment on above: Performed By: #### A FB ####[facility] [address] [address]Dr. Manuel Harrison [employer] Specimen Processing Tissue Grinding Normal [facility] Comment on above: Performed By: #### A FB ####[facility] [address] [address]Dr. Manuel Harrison FUNGAL CULTUREon 02-16-2022 Fungus (Mycology) Culture Final report Normal [facility] Comment on above: Performed By: #### C XFUN #### [facility] [address] [address] [address] Manuel Harrison Fungus Stain Final report Normal [facility] Comment on above: Performed By: #### C XFUN #### [facility] [address] [address] [address] Manuel Harrison Result 1 Comment Normal [facility] Comment on above: Result Comment: JESUS/ Calcofluor preparation: no fungus observed. Performed By: #### C XFUN #### [facility] [address] [address] [address] Manuel Harrison Result Comment: No y east or mold isolated after 4 weeks. TISSUE CULTUREon 02-02-2022 Anaerobic Culture, Extended Incubation Final report Normal [facility] Comment on above: Performed By: #### C XTISSU ####[facility] [address] [address]Dr. Manuel Harrison Result 1 Comment Normal [facility] Comment on above: Result Comment: No g rowth in 56 - 72 hours. Performed By: #### C XTISSU ####[facility] [id number] [address]Dr. Manuel Harrison Result Comment: No g rowth after 14 days. Tissue Culture Final report Normal [facility] Comment on above: Performed By: #### C XTISSU ####[facility] [address] [address]Dr. Manuel Harrison GRAM STAINon 01-18-2022 COMMENTS NO ORGANISMS OBSERVED Normal [facility] Comment on above: Performed By: #### G STAIN #### [facility] [address] [address] [address] Manuel Harrison DIPHTHEROIDS Normal [facility] Comment on above: Performed By: #### G STAIN #### [facility] [address] [address] [address] Manuel Harrison EPITHELIALS Normal [facility] Comment on above: Performed By: #### G STAIN #### [facility] [address] [address] [address] Manuel Harrison FUNGAL ELEMENTS Normal [facility] Comment on above: Performed By: #### G STAIN #### [facility] [address] [address] [address] Manuel Harrison GRAM NEG BACILLI Normal [facility] Comment on above: Performed By: #### G STAIN #### [facility] [address] [address] [address] Manuel ESPINOZA NEG DIPPLOCOCCI Normal [facility] Comment on above: Performed By: #### G STAIN #### [facility] [address] [address] [address] Manuel Harrison GRAM POS BACILLI Normal [facility] Comment on above: Performed By: #### G STAIN #### [facility] [address] [address] [address] Manuel Harrison GRAM POSITIVE COCCI Normal [facility] Comment on above: Performed By: #### G STAIN #### [facility] [address] [address] [address] Manuel Harrison GRAM STAIN SOURCE Left subtalar nonunion Normal [facility] Comment on above: Performed By: #### G STAIN #### [facility] [address] [place] [address] Dr. Manuel Harrison GS_DIPTH Normal [facility] Comment on above: Performed By: #### G STAIN #### [facility] [address] [place] [address] Dr. Manuel Harrison WBC NONE SEEN Normal [facility] Comment on above: Performed By: #### G STAIN #### [facility] [address] [place] [address] Dr. Manuel Harrison XR FOOT LT 2Von 01-18-2022 XR FOOT LT 2V EXAM: XR FOOT LT 2V HISTORY: Pain in left foot COMPARISON: 12/17/2021 TECHNIQUE: 37 fluoroscopic images FINDINGS: Fluoroscopic images demonstrate removal of 2 cannulated lag screws and subsequent subtalar fusion utilizing a strut extending from the talus into the calcaneus and proximally and distally with a single screw. Lytic change of the distal tibia likely represents bone graft harvesting IMPRESSION: Intraprocedural images from subtalar fusion Electronically authenticated by: PANDA SIMON Date: 2022-01-18 13:11 Normal [facility] Covid-19 PCR (CVDTB)on 12-17 SARS-CoV-2 (COVID-19) RNA MEGGAN+probe Ql (Unsp spec) Not detected Normal NOT DETECTED [facility] Comment on above: Result Comment: This test is not yet approved or cleared by the [place] FDA. When there are no FDA-approved or cleared tests available, and other criteria are met, FDA can make tests available under an emergency access mechanism called an Emergency Use Authorization (EUA). The EUA for this test is supported by the [place] of Health and Human Service's (HHS's) declaration that circumstances exist to justify the emergency use of in vitro diagnostics for the detection and/or diagnosis of the virus that causes COVID-19. This EUA will remain in effect (meaning this test can be used) for the duration of the COVID-19 declaration justifying emergency of IVDs, unless it is terminated or revoked by FDA (after which the test may no longer be used). When diagnostic testing is negative, the possibility of a false negative should be considered in the context of a patient's recent exposures and the presence of clinical signs and symptoms consistent with SARS-CoV-2. Performed By: #### C [facility] #### [facility] [address] [place] [address] Dr. Manuel Harrison XR FOOT CHRISTINA MIN 3 VIEWSon XR FOOT CHRISTINA MIN 3 VIEWS EXAMINATION: XR FOOT CHRISTINA MIN 3 VIEWS HISTORY: Pain in both feet COMPARISON: 11/12/2021 FINDINGS: RIGHT FINDINGS: BONES: Normal. No significant arthropathy or acute abnormality. SOFT TISSUES: Negative. No visible soft tissue swelling. OTHER: Negative. LEFT FINDINGS: BONES: Stable subtalar fusion. No acute fracture or dislocation. SOFT TISSUES: Negative. No visible soft tissue swelling. OTHER: Negative. IMPRESSION: RIGHT CONCLUSION: No acute abnormality LEFT CONCLUSION: Stable subtalar fusion Electronically authenticated by: PANDA SIMON Date: 2021-12-17 09:59 Normal [facility] [address] ANKLE LT WO CONon 022 CT ANKLE LT WO CON EXAMINATION: CT ANKLE LT WO CON HISTORY: Pseudarthrosis after fusion or arthrodesis COMPARISON: 11/12/2021 plain x-ray TECHNIQUE: Multi-planar CT images were created without IV contrast. Dose reduction techniques were achieved by using automated exposure control and/or adjustment of mA and/or kV according to patient size and/or use of iterative reconstruction technique. FINDINGS: BONES: Stable subtalar fusion with 2 screws through the posterior talocalcaneal joint. Incomplete bony fusion with severe degenerative change. No acute fracture or dislocation. No significant degenerative changes of the midfoot. SOFT TISSUES: Negative. No visible soft tissue swelling. EFFUSION: None visible. OTHER: Negative. IMPRESSION: Stable subtalar fusion Electronically authenticated by: PANDA SIMON Date: 2021-11-24 08:28 Normal [facility] CALCANEOUS, MIN 2 VIEWSon CALCANEOUS, MIN 2 VIEWS Patient Name: ZAK OSUNA STUDY: CALCANEUS, MIN 2 VIEWS; Left; 04/23/2020 8:45 am INDICATION: pain. COMPARISON: 04/09/2020. ACCESSION NUMBER(S): [id number] ORDERING CLINICIAN: NATHAN COATES FINDINGS: Fusion of the posterior subtalar joint with two screws. Hardware is intact. No fracture or perihardware lucency seen. IMPRESSION: Stable posterior subtalar fusion screws. Electronically signed by: OSCAR FALL MD Normal [facility] CALCANEOUS, MIN 2 VIEWSon CALCANEOUS, MIN 2 VIEWS Patient Name: ZAK OSUNA STUDY: CALCANEUS, MIN 2 VIEWS; 04/09/2020 10:50 am INDICATION: post op. COMPARISON: None. ACCESSION NUMBER(S): [id number] ORDERING CLINICIAN: NATHAN COATES FINDINGS: Fusion of the posterior subtalar joint with 2 screws. Hardware is intact. No fracture or perihardware lucency seen. IMPRESSION: Posterior subtalar fusion Electronically signed by: ACACIA PRADO MD Normal [facility] History and Physical - Surgi chelo Update < 30 dayson 02-19-2020 History and Physical - Surgical Update < 30 days History & Physical Reviewed: I have reviewed the History and Physical dated: 14-Feb-2020 History and Physical reviewed and relevant findings noted. Patient examined to review pertinent physical findings.: No significant changes Home Medications Reviewed: no changes noted Allergies Reviewed: no changes noted This patient has been seen and discussed with the attending physician responsible for performing the procedure: yes Signatures/Attestation/Cert ification: Note Completion: Attending Provider Inpatient Certification StatementObservation patient/other outpatient visits Electronic Signatures: Nathan Coates) (Signed 19-Feb-2020 08:30) Authored: History & Physical Reviewed, Signatures/Attestation/Cert ification Last Updated: 19-Feb-2020 08:30 by Nathan Coates) Normal [facility] Homegoing Instructionson Homegoing Instructions Additional Instructions: Medication Information: Medication Instructions Additional instructions Ice/Elevate operative extremity. Keep dressing clean and dry. Weightbearing: NWB on operative extremity with crutches/walker. Oxycodone 1 by mouth every 6 hours as needed for pain. Tylenol 650 mg by mouth every 6 hours as needed for pain. Aspirin 81 mg by mouth twice daily. F/U with Dr. Coates in 2 weeks. Call [phone] for appointment time. Handouts Given: Topic 1Medication information Topic 2Dr. Jaxon's care instructions Topic 3Post anesthesia care instructions Topic 4Surgical site infection prevention Belongings Returned: Valuables/Medications/Belon gings Returnedyes Electronic Signatures: Nathan Coates) (Signed 19-Feb-2020 08:40) Authored: Additional Instructions Juanis Muniz (RN) (Signed 19-Feb-2020 14:56) Authored: Additional Instructions Last Updated: 19-Feb-2020 14:56 by Juanis Muniz (RN) [facility] Operative Reports - [facility] 02-19-2020 [place] [address] Patient Name: ANTHONY. 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 OPERATION/PROCEDURE: Left subtalar fusion with allograft/DBX bone. SURGEON: Nathan Coates MD FINISHING RANGE FEEDER(S): Paris Leblanc MD ANESTHESIA: General and regional. CLINICAL NOTE: This is a 34-year-old male who suffered a tibial plateau fracture, outside hospital fixed with surgical repair, with persistent pain in the foot. Imaging showed a posterior talus fracture. MRI and CT scan showed degenerative changes of subtalar joint. CT scan showed healing of the fracture, here for subtalar fusion. Understood the risks of surgery, bleeding, infection, nonunion, malunion, possible need for further surgery. Understood these risks and wished to proceed. DESCRIPTION OF OPERATION: The patient was brought to the operating room, was given regional anesthesia, supplemented with general LMA. Left leg was prepped and draped in typical fashion. Tourniquet on the thigh. Leg was exsanguinated, tourniquet inflated to 325 mmHg. Sinus tarsi incision was made. Blunt dissection down the sinus tarsi. Extensor brevis elevated, posterior facet of subtalar joint was exposed. Grade 4 changes were noted. Joint was prepared for fusion using combination of osteotome, rongeur, curette, and ben down to good bleeding bone. Combination of DBX and allograft bone chips were placed in the joint, good bleeding surfaces were fixed with 2 compression screws, headless screws, one from talar neck in the calcaneal body and one from the calcaneal tuberosity up in the talar body. Excellent rigid fixation, good compression across the posterior facet. The wound was irrigated, closed in layers, dressed with posterior splint sugar tongs. The patient tolerated the procedure well, taken to Recovery in stable condition. Nathan Coates MD EST TT: 02/19/2020 10:07 PM EST DICTATION NUMBER: [id number] MARILUZ JOB NUMBER: [id number] CC: Dano Shukla, [id number] Electronic Signatures: Nathan Coates) (Signed on 21-Feb-2020 08:47) Authored Unsigned, Draft (SYS GENERATED) (Entered on 19-Feb-2020 22:07) Entered Last Updated: 21-Feb-2020 08:47 by Nathan Coates) [facility] Patient Profile - Preop v2on 02-19-2020 Patient Profile - Preop v2 Profile: Initial Info: How to be AddressedTony Spoken Language PreferredEnglish (1) Stated Reason for AdmissionFusion of my left ankle Primary Contact Name and NumberMedhatda [phone] Patient Belongingsremains with patient Patient Belongings Remaining with Patientclothing Medications Brought to Hospitalno Are you currently using the Personal Electronic Health Record or FormisimoLookItno Are you interested in learning more about [facility] for the management of your healthyes, information provided Email [email or web address] General Health: Blood Avoidance/Restrictionsnone Patient or Family Member Reaction to Anesthesiapatient reaction Patient Reaction to Anesthesiaawakening delayed Health Mgmt: Barriers to Managing Healthnone Symptoms/Conditions Managed at [facility] Relationship/Environ: Living Arrangementshouse Resource/Environmental Concernsnone Lives Withspouse; dependent child(gene) Substance: Current or Former Substance Use never: Cigarette/Tobacco(2), e-Cigarette/Vaping(2), Alcohol, Street Drugs Risk Screens: COVID-19 Screening Completedno exposure or symptoms Advance Directive/DNRno During the past month, have you often been bothered by feeling down, depressed or hopelessno During the past month, have you often had little interest or pleasure in doing thingsno Have you had any thoughts of harming yourselfno Have you had any thoughts of harming anyone elseno Are you or have you been threatened or abused physically,emotionally or sexually abused by anyoneno Do you feel UNSAFE going back to the place you are livingno Patient is Able to be Assessed for Learningyes Factors Influencing Readiness to Learninterest in learning; motivation to learn Factors that Impact Ability to Learnnone Devices/Methods Used to Communicatenone Learning Preferencesindividual instruction; video; verbal instruction; skill demonstration Cultural Considerationsnone Developmental Considerationsnone Evangelical Considerationsnone Other learner availableno [place] RiskPatient location auto qualifies him/her for HIGH RISK. Are there any cultural, spiritual, evangelical practices/values/needs that are important for us to knowno Pain Scalenumerical 0-10 Pain Scale Educationteaching provided Current Pain Level0 = None Acceptable Pain Level5 = Moderate Chronic Painno Information Review: Allergies, Home Meds and Significant Events have been Reviewed and Verified with Patient/Familyyes Allergy, Intolerance, Adverse Event: Allergies: No Known Allergies: Active Electronic Signatures: Mariah Nair) (Signed 19-Feb-2020 10:26) Authored: Profile, Additional Information Last Updated: 19-Feb-2020 10:26 by Mariah Nair) References: 1. Data Referenced From Triage - ED 08-Sep-2019 17:33 2. Data Referenced From Risk Screen - Adult Emergency 08-Sep-2019 17:[address] [facility] Preop Checkliston 02-19-2020 Preop Checklist Preop Checklist: Preop Checklist: Arrival [id number] Arrival Time10:17 Procedure TypeLeft Foot Subtalar Fusion Temperature C36.8 degrees C Temperature F98.2 degrees F Heart Rate75 beats per minute Respiratory Rate18 breath per minute Blood Pressure Hydigjar543 mm/Hg Blood Pressure Momvybcxe09 mm/Hg NPO [id number] 22:00 ID Band Onyes Allergy Bandno known allergies Consent Signedpending H&P Completepending Anesthesia Assessment Completedyes EKG Performednot ordered Chest X-Ray Performednot ordered HCG Urine TestN/A Chlorhexadine Bath Givennot applicable Nasal Antiseptic Appliednot applicable Hair Washednot applicable Soap and water bath with hair shampoo the night before surgerynot applicable Hat placed on prior to transportnot applicable SCD's Appliedsent to OR FREEDOM Hose Appliedyes Denturesnot applicable Prostheticsnot applicable Hearing Aidsnot applicable Valuables Securedplaced in locker Glasses / Contactsnot applicable Bowel Prepno Cardiovascular Assessment: Apicalregular Radial Pulsespalpable Pedal Pulsespalpable Extremitieswarm, well perfused Respiratory Assessment: Respirationsunlabored regular Air Exchangeequal Neurological Assessment: Level of Consciousnessalert, oriented Mobilitymoves all extremities Able to Express Selfyes Age Appropriateyes Emotional Statusanxious Preop Education: Surgical Site Infection Preventionyes Pain Scales and Managementyes Language / Communication: Language / CommunicationEnglish Electronic Signatures: Mariah Nair (ANISA) (Signed 19-Feb-2020 10:30) Authored: Preop Checklist Last Updated: 19-Feb-2020 10:30 by Mariah Nair) Normal [facility] CORONAVIRUS 2019 BY PCRon CORONAVIRUS 2019,PCR NOT DETECTED Normal Not Detected [facility] Comment on above: Result Comment: This assay is designed to detect the ORF1ab and/or S genes of SARS-CoV-2 via nucleic acid amplification. A Not Detected result does not preclude 2019-nCoV infection since the adequacy of sample collection and/or low viral burden may result in presence of viral nucleic acids below the clinical sensitivity of this test method. Fact sheet for providers: www.fda.gov/media/100688/download Fact sheet for patients: www.fda.gov/media/899382/download This test has received FDA Emergency Use Authorization (EUA) and has been verified by [facility] ([facility]). This test is only authorized for the duration of time that circumstances exist to justify the authorization of the emergency use of in vitro diagnostic tests for the detection of SARS-CoV-2 virus and/or diagnosis of COVID-19 infection under section 564(b)(1) of the Act, 21 U.S.C. 360bbb-3(b)(1), unless the authorization is terminated or revoked sooner. [facility] is certified under CLIA-88 as qualified to perform high complexity testing. Testing is performed in the [facility] laboratories located at [address] [place] [address]. Performed By: #### C OV19 #### [place] [address] Lab Specimen Source Nasal, Nasopharyngeal Normal [facility] Comment on above: Performed By: #### C OV19 #### [place] [address] Coronavirus 2019 by PCRon Coronavirus 2019 by PCR NOT DETECTED See Below -[facility] [place] Work Phone: Comment on above: SOURCE: Nasal, Nasop haryngealReference Range: Not DetectedThis assay is designed to detect the ORF1ab and/or S genes of SARS-CoV-2 via nucleic acid amplification. A Not Detected result does not preclude 2019-nCoV infection since the adequacy of sample collection and/or low viral burden may result in presence of viral nucleic acids below the clinical sensitivity of this test method. Fact sheet for providers: www.fda.gov/media/929049/downloadFact sheet for patients: www.fda.gov/media/029371/downloadThis test has received FDA Emergency Use Authorization (EUA) and has been verified by [facility] ([facility]). This test is only authorized for the duration of time that circumstances exist to justify the authorization of the emergency use of in vitro diagnostic tests for the detection of SARS-CoV-2 virus and/or diagnosis of COVID-19 infection under section 564(b)(1) of the Act, 21 U.S.C. 360bbb-3(b)(1), unless the authorization is terminated or revoked sooner. [facility] is certified under CLIA-88 as qualified to perform high complexity testing. Testing is performed in the [facility] laboratories located at [address] [place] [address]. Discharge [id number] Discharge Profile2 Discharge Orders: Diet: DietDo NOT eat or drink anything starting at midnight, the night before your surgery. Medications with SIPS of water are OK Additional Orders: Additional Instructions No home meds Starting now: -Stop smoking. It is well known that quitting smoking can make a huge difference to your health and recovery from surgery. The longer you abstain from smoking, the better your chances of a healthy recovery. One week before your surgery: -Please stop all vitamin and other supplements 7 days prior to surgery. -Please stop taking NSAID pain medicine such as Advil and Motrin 7 days before surgery. -If you develop any fever, cough, cold, rashes, cuts, scratches, scrapes, urinary symptoms or infection anywhere on your body (including teeth and gums) prior to surgery, please call your surgeons office as soon as possible. This may require treatment to reduce the chance of cancellation on the day of surgery. The day before your surgery: -Get a good nights rest. Use the special soap for bathing if you have been instructed to use one. Do not eat any solid food after midnight the night before surgery. This includes gum, hard candy and coffee. -Arrival time is typically 2 hours prior to the time of surgery. The Pre-operative nursing team will call between the hours of 2pm and 6 pm the business day before your surgery to provide you with your arrival time. If you have not received a phone call by 6 pm, please call [phone] for assistance. -Scheduled surgery times may change and you will be notified is this occurs please check your personal voicemail for any updates. In the event of an illness or the need to cancel your surgery Please notify your surgeon and/or [facility] operative services [phone]. On the morning of surgery: -Wear comfortable, loose fitting clothing which opens in the front. Please do not wear moisturizers, creams, lotions or perfume. Please bring with you to surgery: -Photo ID and insurance card -Current list of medicines and allergies -Pacemaker/ Defibrillator/Heart stent cards -CPAP machine and mask -Slings/ splints/ crutches -A copy of your complete advanced directive/DHPOA. -Please leave all jewelry and valuables at home. -All jewelry and prosthetic devices such as contact lenses, hearing aids, dentures, eyelash extensions, hairpins and body piercings must be removed prior to going in to the surgical suite. Parking and where to go when you arrive: -Free seasonal tax preparer parking is available in the front of the building for all patients scheduled for surgery. Please check in at the desk just behind the main entrance and let them know you are here for surgery and you will be directed to the 2nd floor operating suite. For outpatient surgery: -A responsible adult must accompany you at the time of discharge and stay with you for 24 hours after your surgery. You may not drive yourself home after surgery. CALL PROVIDER IF: -You change your mind about proceeding with surgery. -Need to postpone your surgery as you are sick and admitted to any hospital within 1 week of your planned procedure. -Develop any open sores, shingles, burning or painful urination as these may increase your risk of an infection. -Breathing faster than normal -Breathing harder than normal or having retractions -Fever of 100.4 F (38 C) or higher -Chills -Not being able to go 4-6 hours between albuterol treatments -Urinating less than normal, over 1 day -Urinating less than 4 times per day -Acting very sleepy and difficult to awaken -Vomiting (throwing up) and not able to eat or drink for 12 hours -3 or more loose, watery bowel movements in 24 hours (diarrhea) -Any new concerning symptoms Electronic Signatures: Nicol Syed ([employer]ER[employer] ACCOUNT EXECUTIVE) (Signed 14-Feb-2020 08:10) Authored: Discharge Orders, Gold Form - Director On Air Summary Last Updated: 14-Feb-2020 08:10 by Nicol Syed ([employer]ERCIAL LINES ACCOUNT EXECUTIVE) Normal [facility] History and Physicalon 02-13 History and Physical History of Present Illness: Admission Reason: LEFT SUBTALAR FUSION HPI: Date of Consult: 02/14/20 Referring Provider: Dr. Coates Left subtalar fusion, 02/19/20, 45 min Zak Osuna is a 34 year-old male who presents to the [facility] for perioperative risk assessment prior to surgery. Patient presents with a primary diagnosis of left ankle pain. He [place] an [place] and sought treatment by Dr. Davies. He proceeded with ORIF for a tibial plateau fracture. He presents today with complains of persistent left ankle pain that onset at the time of his prior injury but has not been treated yet. This note was created in part upon personal review of patients medical records. Patient is scheduled to have left subtalar fusion Medical History NO MEDICAL HISTORY Surgical History Left knee ORIF 2018 Pt denies any past history of anesthetic complications such as PONV, awareness, prolonged sedation, dental damage, aspiration, cardiac arrest, difficult intubation, difficult I.V. access or unexpected hospital admissions. NO malignant hyperthermia and or pseudocholinesterase deficiency. No history of blood transfusions The patient is not a Jehovahs witness and will accept blood and blood products if medically indicated. Type and screen not sent. Body Measurements Height 180.3 CM Weights 02/13 8:05: Weight in kg (Weight (kg)) 94.7 02/13 8:05: Weight in lbs ((lbs)) 208.7 02/13 8:05: BMI (kg/m2) (BMI (kg/m2)) 29.131 Family History: Family History: reviewed and not pertinent to presenting problem Asthma: yes MOM AND BROTHER 1/2 Bleeding Disorder: no Cancer: yes GRANDMA BRAIN TUMOR CAD: no Diabetes: no Hyperlipidemia: no Hypertension: no Stroke: no VTE: no Social History: Social History: Smoking Statusnever smoker Alcohol Useoccasionally Drug Usedenies Allergies: No Known Allergies: Medications Prior to Admission: The patient does not take any medications at home. Review of Systems: Constitutional: NEGATIVE: Fever, Chills, Anorexia, Weight Loss, Malaise Eyes: NEGATIVE: Blurry Vision, Drainage, Diploplia, Redness, Vision Loss/ Change ENMT: NEGATIVE: Nasal Discharge, Nasal Congestion, Ear Pain, Mouth Pain, Throat Pain Respiratory: NEGATIVE: Dry Cough, Productive Cough, Hemoptysis, Wheezing, Shortness of Breath Cardiac: NEGATIVE: Chest Pain, Dyspnea on Exertion, Orthopnea, Palpitations, Syncope; COMMENTS: FUNCTIONAL 4 METS. HAS 11 KIDS AND ARE VERY ACTIVE WITH THEM Gastrointestinal: NEGATIVE: Nausea, Vomiting, Diarrhea, Constipation, Abdominal Pain Genitourinary: NEGATIVE: Discharge, Dysuria, Flank Pain, Frequency, Hematuria Musculoskeletal: POSITIVE: Pain; NEGATIVE: Decreased ROM, Swelling, Stiffness, Weakness; COMMENTS: LEFT ANKLE Neurological: NEGATIVE: Dizziness, Confusion, Headache, Seizures, Syncope Psychiatric: NEGATIVE: Mood Changes, Anxiety, Hallucinations, Sleep Changes, Suicidal Ideas Skin: NEGATIVE: Mass, Pain, Pruritus, Rash, Ulcer Hematologic/Lymph: NEGATIVE: Anemia, Bruising, Easy Bleeding, Night Sweats, Petechiae Allergic/Immunologic: NEGATIVE: Anaphylaxis, Itchy/ Teary Eyes, Itching, Sneezing, Swelling All Other Systems: All other systems reviewed and are negative Objective: Objective Information: T PRBPSpO2 [id number]/42362% Date/Time02/13 8: 8: 8: 8: 8:05 Range(36.2C - 36.2C ) (76 - 76 ) (18 - 18 ) (137 - 137 )/ (81 - 81 ) (100% - 100% ) Weights 02/13 8:05: Weight in kg (Weight (kg)) 94.7 02/13 8:05: Weight in lbs ((lbs)) 208.7 02/13 8:05: BMI (kg/m2) (BMI (kg/m2)) 29.131 Physical Exam: Constitutional: Well developed, awake/alert/oriented x3, no distress, alert and cooperative Eyes: PERRL, EOMI, clear sclera ENMT: mucous membranes moist, no apparent injury, no lesions seen Head/Neck: Neck supple, no apparent injury, thyroid without mass or tenderness, No JVD, trachea midline, no bruits Respiratory/Thorax: Patent airways, CTAB, normal breath sounds with good chest expansion, thorax symmetric Cardiovascular: Regular, rate and rhythm, no murmurs, 2+ equal pulses of the extremities, normal S 1and S 2 Gastrointestinal: Nondistended, soft, non-tender, no rebound tenderness or guarding, no masses palpable, no organomegaly, +BS, no bruits Musculoskeletal: ROM intact, no joint swelling, normal strength Extremities: normal extremities, no cyanosis edema, contusions or wounds, no clubbing Neurological: alert and oriented x3, intact senses, motor, response and reflexes, normal strength Breast: No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 Erythrocyte distribution width (RBC) [Ratio] 12.7 % Normal 11.5 - 14.5 [facility] Comment on above: Performed By: #### C BCDF #### [address] [address] Hematocrit (Bld) [Volume fraction] 46.7 % Normal 41.0 - 52.0 [facility] Comment on above: Performed By: #### C BCDF #### [address] [address] Hemoglobin (Bld) [Mass/Vol] 16.3 g/dL Normal 13.5 - 17.5 [facility] Comment on above: Performed By: #### C BCDF #### [address] [address] Lymphocytes (Bld) [#/Vol] 1.72 10*3/uL Normal 1.20 - 4.80 [facility] Comment on above: Performed By: #### C BCDF #### [address] [address] Lymphocytes/100 WBC (Bld) 18.0 % Normal 13.0 - 44.0 [facility] Comment on above: Performed By: #### C BCDF #### [address] [address] MCHC (RBC) [Mass/Vol] 34.9 g/dL Normal 32.0 - 36.0 [facility] Comment on above: Performed By: #### C BCDF #### [address] [address] MCV (RBC) [Entitic vol] 83 fL Normal 80 - 100 [facility] Comment on above: Performed By: #### C BCDF #### [address] [address] Monocytes (Bld) [#/Vol] 0.55 10*3/uL Normal 0.10 - 1.00 [facility] Comment on above: Performed By: #### C BCDF #### [address] [address] Monocytes/100 WBC (Bld) 5.8 % Normal 2.0 - 10.0 [facility] Comment on above: Performed By: #### C BCDF #### [address] [address] Neutrophils (Bld) [#/Vol] 7.09 10*3/uL Normal 1.20 - 7.70 [facility] Comment on above: Performed By: #### C BCDF #### [address] [address] Neutrophils/100 WBC (Bld) 74.3 % Normal 40.0 - 80.0 [facility] Comment on above: Performed By: #### C BCDF #### [address] [address] Platelets (Bld) [#/Vol] 262 10*3/uL Normal 150 - 450 [facility] Comment on above: Performed By: #### C BCDF #### [address] [address] RBC (Bld) [#/Vol] 5.62 x10E12/L Normal 4.50 - 5.90 [facility] Comment on above: Performed By: #### C BCDF #### [address] [address] WBC (Bld) [#/Vol] 9.5 10*3/uL Normal 4.4 - 11.3 [facility] Comment on above: Performed By: #### C BCDF #### [address] [address] COAGULATION SCREENon 019 aPTT Coag (Bld) [Time] 31 s Normal 28 - 38 [facility] Comment on above: Result Comment: THE APTT IS NO LONGER USED FOR MONITORING UNFRACTIONATED HEPARIN THERAPY. FOR MONITORING HEPARIN THERAPY, USE THE HEPARIN ASSAY. Performed By: #### C OAGS #### [address] [address] INR Coag (PPP) [Relative time] 1.1 {INR} Normal 0.9 - 1.1 [facility] Comment on above: Performed By: #### C OAGS #### [address] [address] PT Coag (PPP) [Time] 12.4 s Normal 9.7 - 12.7 [facility] Comment on above: Performed By: #### C OAGS #### [address] [place] [address] COMPREHENSIVE PANELon 2018 Albumin [Mass/Vol] 4.7 g/dL Normal 3.4 - 5.0 [facility] Comment on above: Performed By: #### C MP ####[facility] [place] [address] ALP [Catalytic activity/Vol] 53 U/L Normal 33 - 120 [facility] Comment on above: Performed By: #### C MP ####[address] [place] [address] ALT [Catalytic activity/Vol] 55 U/L High 10 - 52 [facility] Comment on above: Result Comment: Liseth ents treated with Sulfasalazine may generate falsely decreased results for ALT. Performed By: #### C MP ####[address] [address] Anion gap [Moles/Vol] 13 mmol/L Normal 10 - 20 [facility] Comment on above: Performed By: #### C MP ####[address] [place] [address] AST [Catalytic activity/Vol] 34 U/L Normal 9 - 39 [facility] Comment on above: Performed By: #### C MP ####[address] [address] Bilirubin [Mass/Vol] 0.8 mg/dL Normal 0.0 - 1.2 [facility] Comment on above: Performed By: #### C MP ####[address] [place] [address] Calcium [Mass/Vol] 9.8 mg/dL Normal 8.6 - 10.3 [facility] Comment on above: Performed By: #### C MP ####[address] [place] [address] Chloride [Moles/Vol] 102 mmol/L Normal 98 - 107 [facility] Comment on above: Performed By: #### C MP ####[address] [address] Creatinine [Mass/Vol] 0.89 mg/dL Normal 0.50 - 1.30 [facility] Comment on above: Performed By: #### C MP ####[address] [address] GFR- AM. >60 Normal >60 [facility] Comment on above: Result Comment: CALC ULATIONS OF ESTIMATED GFR ARE PERFORMED USING THE MDRD STUDY EQUATION FOR THE IDMS-TRACEABLE CREATININE METHODS. CLIN CHEM 2007;53:766-72 Performed By: #### C MP ####[address] [address] GFR-NON AM. >60 Normal >60 [facility] Comment on above: Performed By: #### C MP ####[address] [address] Glucose [Mass/Vol] 110 mg/dL High 74 - 99 [facility] Comment on above: Performed By: #### C MP ####[address] [address] HCO3 (Bld) [Moles/Vol] 27 mmol/L Normal 21 - 32 [facility] Comment on above: Performed By: #### C MP ####[address] [address] Potassium [Moles/Vol] 3.5 mmol/L Normal 3.5 - 5.3 [facility] Comment on above: Performed By: #### C MP ####[address] [address] Protein [Mass/Vol] 7.5 g/dL Normal 6.4 - 8.2 [facility] Comment on above: Performed By: #### C MP ####[address] [address] Sodium [Moles/Vol] 138 mmol/L Normal 136 - 145 [facility] Comment on above: Performed By: #### C MP ####[address] [address] Urea nitrogen [Mass/Vol] 18 mg/dL Normal [facility] Comment on above: Performed By: #### C ####[facility] [place] [address] CT LOWER EXT WO CONTRASTon 1 11-08-2018 CT LOWER EXT WO CONTRAST Patient Name: ZAK OSUNA STUDY: CT LOWER EXT WO CONTRAST; 09/08/2019 6:50 pm INDICATION: tibial plateau fracture left knee. COMPARISON: None. ACCESSION NUMBER(S): [id number] ORDERING CLINICIAN: MILTON MONTANO TECHNIQUE: Contiguous axial images of the left knee were obtained without intravenous contrast. Coronal and sagittal reformatted images were obtained from the axial images. FINDINGS: There is an acute comminuted fracture of the left lateral tibial plateau. There is evidence of fracture depression measure up to 5 mm on coronal image 26 of 60. There is mild lateral displacement of fracture fragment. There is extension of the tibial plateau fracture to the proximal metaphysis. There is left knee effusion with several tiny foci of air in the effusion. 12 mm and 6 mm chronic calcific densities are noted in the superior portion of the knee effusion IMPRESSION: Acute comminuted fracture of the left lateral tibial plateau. Electronically signed by: SAPPHIRE VALDEZ MD Normal [facility] FOOT COMPLETE, MIN 3 VIEWSon 09-08-2019 FOOT COMPLETE, MIN 3 VIEWS Patient Name: ZAK OSUNA STUDY: FOOT; COMPLETE, MIN 3 VIEWS; 09/08/2019 6:25 pm INDICATION: tramponline injury. COMPARISON: None. ACCESSION NUMBER(S): [id number] ORDERING CLINICIAN: VINI COON FINDINGS: There is no fracture, effusion, joint space narrowing, or dislocation. There is no significant soft tissue swelling. There is normal bony mineralization. IMPRESSION: No fracture Electronically signed by: EDY HO MD Normal [facility] KNEE CMPLT, 4 OR MORE VIEWSo n 09-08-2019 KNEE CMPLT, 4 OR MORE VIEWS Patient Name: ZAK OSNUA STUDY: KNEE; COMPLT, 4 OR MORE VIEWS; 09/08/2019 6:25 pm INDICATION: tramponline injury. COMPARISON: None. ACCESSION NUMBER(S): [id number] ORDERING CLINICIAN: VINI COON FINDINGS: There is a lateral tibial plateau fracture. There is a small suprapatellar lipohemarthrosis. There is normal bony mineralization. There is no significant soft tissue swelling. IMPRESSION: Lateral tibial plateau fracture with a suprapatellar lipohemarthrosis Electronically signed by: EDY HO MD [facility] Provider Note - ED v2on 08-18 Provider Note - ED v2 Provider Note - ED v2: Chart Review: ED NOTES ED NOTES: Patient into the emergency Department with complaints of left lower extremity pain status post a fall after jumping off of the trampoline. Patient states that he was at some sort of trampoline gym. He states that he jumped off the trampoline that was about 20 feet up into the air and he was jumping and to some sort of sponge or foam pit. He states that when he landed into the pit he essentially went right down to the ground and the impact was not absorbed by any of the sponges or foam that he was jumping into. He essentially landed onto a hard ground. He states that he landed onto his left lower extremity. Patient states that he immediately had pain in his left knee. He was unable to bear weight on that left lower externally after the incident. He was ultimately brought into the emergency department EMS for evaluation. He denies any head trauma loss of consciousness. He recalls entire events. He does report some pain in the ankle as well. No other complaints. HISTORY OF PRESENTING ILLNESS ZAK is a 33 year old Male and was seen by me at 08-Sep-2019 17:39 for a chief complaint of knee pain/injury . Other complaints include: left knee an ankle pain patient jumped off a rock wall into a foam pit . (1). Triage Information: Most recent Vital Sign Value Date Temp (F): 97.7 09-08-2019 17:33 Temp (C): 36.5 09-08-2019 17:33 Heart Rate (beats/min): 78 09-08-2019 17:33 Respirations (breaths/min): 18 09-08-2019 17:33 SpO2 (%): 98 09-08-2019 17:33 BP Systolic (mm Hg): 121 09-08-2019 17:33 BP Diastolic (mm Hg): 73 09-08-2019 17:33 PAST MEDICAL HISTORY ATTESTATION: I have reviewed and confirmed nurse's/medic's notes for patient's medications, allergies, medical history, and surgical history ALLERGIES/INTOLERANCES: No Known Allergies HEALTH HISTORY: No documented data. OUTPATIENT MEDICATIONS: Home Medications Review Status for Reconciliation: Incomplete Med Status: Incomplete Medication History No documented data. SIGNIFICANT EVENTS: No documented data. REVIEW OF SYSTEMS All other systems reviewed and are negative PHYSICAL EXAM CONSTITUTIONAL: Appearance: well appearing Development: well developed Distress: MILD Manner: appropriate for situation Mentation: awake, alert and oriented to person, place, time/situation Nourishment: well HENMT: Head Examination: (Head is atraumatic and normocephalic) Mouth: (moist mucous membranes) EYES: Clear bilaterally, pupils equal, round and reactive to light. CARDIOVASCULAR: Normal rate, regular rhythm. Heart sounds S1, S2. No murmurs, rubs or gallops. RESPIRATORY: Breath sounds clear and equal bilaterally. GASTROINTESTINAL: Abdomen soft, non-distended, no rebound, no guarding. Bowel sounds normal in all 4 quadrants. MUSCULOSKELETAL: Musculoskeletal Exam: (Patient with tenderness to the proximal tibial region An circumferentially around the left knee. No obvious deformity. There is some trace edema to the lateral aspect of that left knee. No substantial knee effusion. Patient also with some circumferential Ankle pain on the left. There is some trace edema. No ecchymosis per no obvious deformity. Limits of is neurovascularly intact. Pelvis is stable. Lower extremity are not shortened or rotated another direction.) Spinal Exam: Tenderness Location: (No midline cervical thoracic or lumbar spine tenderness or step-offs appreciated) NEUROLOGICAL: Level of Consciousness: alert and follows commands Speech: clear SKIN: Skin normal color for race, warm, dry and intact. No evidence of trauma. PSYCHIATRIC: Level of Consciousness: alert and follows commands Mood: appropriate Affect: normal Speech: clear RESULTS/VITAL SIGNS VITAL SIGNS: T PRBP SpO2O2(LPM) %FiO2 Method 08-Sep-2019 17:33:[id number] 98 room air, no respiratory support MEDICAL DECISION MAKING/ED COURSE MDM/ED COURSE: Patient arrives to the emergency department with stable vitals. He is in some mild distress. He is mentating appropriate is cooperative. Tenderness to the lateral aspect of that left knee with some trace edema. No substantial joint effusion. Patella appears to be intact. Patient also some circumferential edema and tenderness to the left ankle. No obvious bony deformity. Lower service are not shortened or rotated another direction. Pelvis is stable. No signs of any head trauma and the patient denies this. No spinal tenderness or step-offs. No heel or calcaneal tenderness on that left side. Films of the left knee tib-fib and ankle are ordered. Patient is medicated with some intermuscular morphine. I will reevaluate him shortly. Films of the left knee per radiology do reveal a tibial plateau fracture that is mainly displaced. CT scan was subsequent be ordered. I did reach out to Dr. Patel of orthopedics. Case is discussed with him. He states that the patient can be sent home with a knee immobilizer crutches nonweightbearing and follow-up on Tuesday in order to get scheduled for surgery at a later date or if the patient is significantly uncomfortable he can be admitted for pain control and surgery in the next day or 2. I did discuss the findings and the plan with the patient. He states that he prefers to go home and to follow-up. Patient given additional narcotic pain medications. He is urged to come back for any worsening symptoms or concerns. Of note the patient's left lower externally is neurovascularly intact prior to and post-knee immobilizer placement. Basic labs have been ordered. Patient is discharged. Initial fracture care was provided to this patient. He presented to the emergency Department with complaints of left knee pain status post a trampoline accident. Films did reveal a tibial plateau fracture. Patient's pain was treated with intramuscular as well as IV narcotics. Limb is neurovascularly intact prior to and post-knee immobilizer placement. He is ultimately discharged home at his request with crutches and instructed to be nonweightbearing until orthopedic follow-up CLINICAL IMPRESSION Diagnosis/Annotation: ED Dx Name:Fracture of left tibial plateau Code:S82.142A Dispostion: discharged Type: home ATTESTATION CRITICAL CARE TIME Is this a critically ill patient: no Electronic Signatures: Vini Coon) (Signed 08-Sep-2019 19:15) Authored: Provider Note - ED v2 Last Updated: 08-Sep-2019 19:15 by Vini Coon) References: 1. Data Referenced From Triage - ED 08-Sep-2019 17:33 Normal [facility] Risk Screen - Adult Emergenc yon 09-08-2019 Risk Screen - Adult Emergency Preferred Language: Preferred Language: Preferred Language for Discussing Health Care (patient/designee)Tuvaluan Advanced Directives: Advance Directive/DNRno Advance Directive Information Givenpatient/family declined Family Violence Adult: Abuse Screen: Are you or have you been threatened or abused physically, emotionally, or sexually by anyoneno Learning Assessment (Patient): Learning Assessment (Patient): Patient is Able to be Assessed for Learningyes Factors Influencing Readiness to Learnacuteness of illness Factors that Impact Ability to Learnacuteness of illness Devices/Methods Used to Communicatecommunication board Learning Preferencesindividual instruction Cultural Considerationsnone Developmental Considerationsnone Evangelical Considerationsreligious considerations buddhism Learning Assessment (Other Learner): Learning Assessment (Other Learner): Other learner availableno Pressure Injury/TB/Substance: Pressure Injury: Pressure Injury Present on Admissionno Do you have a coughno Substance Use Current or Former Historynever: Cigarette/Tobacco, e-Cigarette/Vaping, Street Drugs YES: Alcohol Alcohol Useoccasionally Admission Risk Screen: Significant IndicatorsComplete CAGE: CAGE: Is this an injured patient at a Trauma Center ([facility] [place]/[place]): no Electronic Signatures: Roxie Jimenez (ADRIANNA) (Signed 08-Sep-2019 17:57) Authored: Preferred Language, Advanced Directives, Family Violence Adult, Learning Assessment (Patient), Learning Assessment (Other Learner), Pressure Injury/TB/Substance, CAGE Last Updated: 08-Sep-2019 17:57 by Roxie Jimenez (ADRIANNA) Normal [facility] TIBIAon 09-08-2019 TIBIA Patient Name: ZAK OSUNA STUDY: TIBIA ; 09/08/2019 6:25 pm INDICATION: tramponline injury. COMPARISON: None. ACCESSION NUMBER(S): [id number] ORDERING CLINICIAN: VINI COON FINDINGS: There is a lateral tibial plateau fracture.. There is no significant soft tissue swelling. There is normal bony mineralization. IMPRESSION: Lateral tibial plateau fracture Electronically signed by: EDY HO MD Normal [facility] Triage - EDon 09-08-2019 Triage - ED Chart Review: CHIEF COMPLAINT ZAK OSUNA is a Male patient with a chief complaint of knee pain/injury. Other Complaints: left knee an ankle pain patient jumped off a rock wall into a foam pit . Triage Date/Time: 08-Sep-2019 17:33 Pain Rating (0-10): 10 = Severe Pain location: left knee and left ankle Vital Signs: Temperature: 97.7F ( 36.5C) taken forehead Blood Pressure: 121/73 Mean: 103 Heart Rate: 78 Respiratory Rate: 18 Pulse Oximetry: 98% on room air, no respiratory support. Height: 5 feet 11.00 inches. 180.3 CM Weight: 203.0 pounds. Calculated 92.0 kg. (stated) Calculated BMI (kg/m2): 28.300 Calculated BSA (m2) 2.15 Cough lasting greater than 3 weeks: no Travel outside of [facility]: no Allergies: no Patient has homicidal thoughts: no SID: 4 Problem: Problem Type: bruising on the left anterior ankle foot. Image has been removed. Risk Screens Suicide Risk Screen In the Past Month: Have you wished you were or wished you could go to sleep and not wake up no In the Past Month: Have you had any actual thoughts of killing yourself no In Your Lifetime: Have you ever done anything, started to do anything, or prepared to do anything to end your life no Franz Fall Scale Screening Has the patient fallen before (or is the patient in the ED as a result of a fall) has had a fall Does the patient have an impaired gait has impaired gait Is the patient cognitively impaired not cognitively impaired Franz Fall Scale History of falling (immediate or previous) yes (25) Secondary Diagnosis yes (15) Intravenous Therapy/ Heparin/Saline Lock no (0 Gait/Transferring impaired (20) Ambulatory Aids none/bedrest/nurse assist (0) Mental Status oriented to own ability (0) Franz Fall Risk Score: 60 Interventions: High Risk > 45 interventions: bed in low position with brakes locked and side rails up and call light provided to patient PAIN Pain Scale Used: DJ Pain Rating (0-10): 10 = Severe ARRIVAL INFORMATION Means of Arrival: stretcher Mode of Arrival: ambulance Agency: [facility] Arrival From: ([facility] [place]) Accompanied By: self and water resources project manager Language: Spoken Language Preferred: Tuvaluan Reading Language Preferred: Tuvaluan MDRO: History of MDRO: no Present on Arrival: Pressure Ulcer Present on Arrival to ED: no PRIMARY ASSESSMENT ZAK OSUNA's primary assessment is Within Normal Limits. The airway is open and patent. Breathing spontaneous and unlabored with clear breath sounds bilaterally. Circulation is normal with good peripheral pulses. Skin is warm and dry and color is normal for race. PAST MEDICAL HISTORY Immunization History: Last Known Tetanus Immunization: Less than 5 years TRAVEL HISTORY Travel Exposure History: NO travel to International locations in the past 30 days Past Medical History: Past Medical History Reviewedyes Electronic Signatures: Roxie Jimenez (RN) (Signed 08-Sep-2019 17:40) Authored: Triage, Past Medical History Last Updated: 08-Sep-2019 17:40 by Roxie Jimenez (RN) Normal [facility] Vital Signs Date Time Vital Sign Value Performing Clinician Facility 05-15-2024 14:54-0400 Body height 180.34 cm PHYSICIAN NO [facility] 05-15-2024 14:54-0400 Body temperature 97.8 [degF] PHYSICIAN NO [facility] 05-15-2024 14:54-0400 Body weight 99.55 kg PHYSICIAN NO [facility] 05-15-2024 14:54-0400 Diastolic blood pressure 83 mm[Hg] PHYSICIAN NO [facility] 05-15-2024 14:54-0400 Heart rate 99 /min PHYSICIAN NO [facility] 05-15-2024 14:54-0400 Respiratory rate 16 /min PHYSICIAN NO [facility] 05-15-2024 14:54-0400 SaO2% (BldA) [Mass fraction] 98 % PHYSICIAN NO [facility] 05-15-2024 14:54-0400 Systolic blood pressure 139 mm[Hg] PHYSICIAN NO [facility] 11-24-2023 08:58-0500 Body height 180.3 cm Rola Jerry DO Work Phone: [facility] 11-24-2023 08:58-0500 Body mass index (BMI) [Ratio] 30.82 kg/m2 Rola Jerry DO Work Phone: [facility] 11-24-2023 08:58-0500 Body weight 100.25 kg Rola Jerry DO Work Phone: [facility] 11-24-2023 08:58-0500 Diastolic blood pressure 80 mm[Hg] Rola Jerry DO Work Phone: [facility] 11-24-2023 08:58-0500 Heart rate 76 /min Rola Jerry DO Work Phone: [facility] 11-24-2023 08:58-0500 SaO2% (BldA) [Mass fraction] 99 % Rola Jerry DO Work Phone: [facility] 11-24-2023 08:58-0500 Systolic blood pressure 118 mm[Hg] Rola Jerry DO Work Phone: [facility] 04-08-2020 11:05-0400 BMI (Body Mass Index) 28.59 kg/m2 [facility] Work Phone: 04-08-2020 11:05-0400 Body weight 92.99 kg [facility] Work Phone: 04-08-2020 11:05-0400 BSA (Body Surface Area) 2.13 m2 [facility] Work Phone: 04-08-2020 11:05-0400 Height 180.34 cm Nathan [facility] Work Phone: 04-02-2020 15:36-0400 BMI (Body Mass Index) 28.59 kg/m2 [facility] Work Phone: 04-02-2020 15:36-0400 Body weight 92.99 kg Nathan [facility] Work Phone: 04-02-2020 15:36-0400 BSA (Body Surface Area) 2.13 m2 [facility] Work Phone: 04-02-2020 15:36-0400 Height 180.34 cm [facility] Work Phone: 03-05-2020 10:55-0400 BMI (Body Mass Index) 28.59 kg/m2 Nathan Coates [facility] Work Phone: 03-05-2020 10:55-0400 Body weight 92.99 kg [facility] Work Phone: 03-05-2020 10:55-0400 BSA (Body Surface Area) 2.13 m2 Nathan Coates [facility] Work Phone: 03-05-2020 10:55-0400 Height 180.34 cm Nathan Coates [facility] Work Phone: Encounters Encounter Date Encounter Type Care Provider Facility Start: 05-15-2024 End: 05-15-2024 Emergency department patient visit PHYSICIAN [facility] Work Phone: Start: 11-24-2023 Bamboo flowsheet Rola Aguilar Stra ck DO Work Phone: [facility] Start: 11-24-2023 Bamboo flowsheet Rola Aguilar Stra ck DO Work Phone: [facility] Start: 11-24-2023 End: 11-24-2023 ambulatory ROLA EDWARDS Not Available Start: 11-24-2023 End: 11-24-2023 Office outpatient visit 25 minutes Rola Edwards DO Work Phone: [facility] Comment on above: Moderate persistent asthma without complication (CMS/HCC) (Primary Dx); Pulmonary nodule; Mild intermittent asthma, unspecified whether complicated (CMS/HCC) Start: 11-23-2023 Chart abstracting Rola Santos ack DO Work Phone: [facility] Start: 10-24-2023 End: 10-24-2023 ambulatory SARKIS BARLOW Not Available Start: 10-11-2023 End: 10-11-2023 ambulatory SARKIS BARLOW Not Available Start: 09-23-2023 End: 09-23-2023 ambulatory SARKIS BARLOW Not Available Start: 10-25-2022 End: 10-25-2022 ambulatory MD Dano Shukla Work Phone: [facility] Work Phone: Start: 10-25-2022 End: 10-25-2022 Patient encounter procedure MD Dano Shukla Work Phone: [facility] Work Phone: Start: 08-26-[address] DANO SHUKLA Facilit y:H1 Start: 08-24-2022 End: 08-25-[address] SMITA LITTLE Facility:[facility]1 Start: 08-24-2022 End: 08-25-2022 ambulatory AMALIA MENDIETA Facility:[facility]1 Start: 04-07-2022 End: 04-08-2022 ambulatory CHARLIE WAYNE Facility:[facility]1 Start: 04-06-2022 End: 04-07-2022 ambulatory CHARLIE WAYNE Facility:[facility]1 Start: 03-17-2022 End: 03-18-2022 ambulatory CHARLIE WAYNE Facility:H1 Start: 03-02-2022 End: 03-03-[address] DOCTOR PEARSON Facility:H1 Start: 02-09-2022 End: 02-10-[address] PANDA SIMON Facility:[facility]1 Start: 01-26-2022 End: 01-27-[address] PANDA SIMON Facility:H1 Start: 01-18-2022 Encounter for preprocedural laboratory examination CHARLIE WAYNE [facility] Start: 01-18-2022 End: 01-18-2022 ambulatory CHARLIE WAYNE Facility:H1 Start: 01-14-2022 End: 01-15-2022 ambulatory CHARLIE WAYNE Facility:[facility]1 Start: 01-14-2022 End: 01-15-2022 Encounter for preprocedural laboratory examination CHARLIE WAYNE Facility:H1 Start: 01-11-2022 Encounter for other preprocedural examination CHARLIE WAYNE [facility] Start: 01-06-2022 End: 01-07-2022 ambulatory CHARLIE WAYNE Facility:H1 Start: 01-06-2022 End: 01-07-2022 Encounter for other preprocedural examination CHARLIE WAYNE Facility:H1 Start: 12-17-2021 End: 12-18-2021 ambulatory CHARLIE WAYNE Facility:H1 Start: 11-24-2021 End: 11-25-2021 ambulatory AMALIA MENDIETA Facility:H1 Start: 11-12-2021 End: 11-13-2021 ambulatory CHARLIE WAYNE Facility:H1 Start: 10-20-2021 End: 10-21-2021 ambulatory AMALIA MENDIETA Facility:H1 Start: 04-09-2020 Patient encounter procedure [facility] Coates [facility] Work Phone: Start: 04-03-2020 Patient encounter procedure Nathan Coates [facility] Work Phone: Start: 03-05-2020 Patient encounter procedure Nathan Coates [facility] Work Phone: Start: 12-26-2019 Patient encounter procedure Nathan Coates [facility] Work Phone: Start: 09-20-2019 End: 09-20-2019 Patient encounter procedure PANDA DAVEIS [facility] Start: 09-20-2019 End: 09-23-2019 Patient encounter procedure PANDA DAVIES [facility] Start: 09-20-2019 End: 09-22-2019 Subsequent hospital visit by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
--- NOTE | 2024-05-21 00:28 | ED_ITS ---
HPI HPI - Extremity Injury (Upper) General Chief Complaint: Extremity Injury, Upper Stated Complaint: RT WRIST INJURY Time Seen by Provider: 05/21/24 00:24 Source: patient Mode of arrival: walk-in Limitations: no limitations History of Present Illness HPI narrative: states he was trying to stop a hog escape from the pen and injured his right wrist about 4-5 hours ago. complains of pain and points to distal ulnar aspect of the wrist. mild tingling of 4th and 5th fingers. No weakness of his fingers. Denies other injuries Related Data Allergies Allergy/AdvReac Type Severity Reaction Status Date / Time No Known Drug Allergies Allergy Verified 05/21/24 00:19 Opioid HPI Opioid Management Most Recent Pain and Opioid Data: Last Pain Scale 5 05/21/24 00:22 Review of Systems ROS Status of ROS 10 or more systems reviewed and unremark able except as noted in history and below [facility] Medical History (Updated 05/21/24 @ 02:19 by Donald Holloway MD) Deviated nasal septum ?J34.2 - Deviated nasal septum (ICD-10) Surgical History (Updated 10/09/23 @ 23:47 by Geetha Maldonado) H/O sinus surgery ?Z98.890 - Other specified postprocedural states (ICD-10) Social History Smoking status: Never smoker Exam Constitutional Vital Signs, click to edit/add: Last Vital Signs Temp 98.1 F 05/21/24 00:14 Pulse 85 05/21/24 00:14 Resp 16 05/21/24 00:14 BP 132/81 05/21/24 00:14 Common normals: no apparent distress, average body habitus, oriented x3, no limitations, healthy appearing, alert and well nourished [facility] Common normals: normocephalic and head/scalp atraumatic Eye Common normals: EOMs intact bilaterally and conjunctivae normal Respiratory Common normals: normal respiratory effort, no retractions and no use of accessory muscles Cardio Common normals: regular rate, regular rhythm, S1 normal heart sound and S2 normal heart sound Extremity Common normals: normal to inspection and full ROM Other: mild tenderness right distal ulnar Neuro Common normals: oriented x3, CN's II-XII intact bilaterally, moves all extr emities, no focal motor deficits and no sensory deficits noted Psych Appearance: grossly normal Course Vital Signs Vital signs: Vital Signs Temperature 98.1 F 05/21/24 00:14 Pulse Rate 85 05/21/24 00:14 Respiratory Rate 16 05/21/24 00:14 Blood Pressure 132/81 05/21/24 00:14 Temperature 98.1 F 05/21/24 00:14 Pulse Rate 85 05/21/24 00:14 Respiratory Rate 16 05/21/24 00:14 Blood Pressure 132/81 05/21/24 00:14 MDM - Extremity Injury (Upper) MDM Narrative Medical decision making narrative: patient injured wrist trying to stop a hog from escaping. has pain of the distal ulnar aspect of the wrist. Xray with nondisplaced fracture of distal ulnar styloid fragment. Patient informed of the above and placed in a splint. Discharged home to follow up with orthopedics Discharge Plan Discharge Stand Alone Forms: Portal Instructions Chief Complaint: Extremity Injury, Upper Clinical Impression: Fracture of right ulnar styloid Patient Disposition: Home, Self-Care Print Language: Serbian Instructions: Wrist Fracture in Adults (ED) Additional Instructions: follow up with orthopedics this week Referrals: Physician,Non-Staff, MD [Primary Care Provider] - 1 week
--- NOTE | 2024-05-21 00:31 | XR_ITS ---
The [address] [address] Patient Name: JENI TERRAZAS MRN: [id number] date: 1985 Sex: M Assigned Patient Location: ER Current Patient Location: Accession/Order Number: [id number] Exam Date: 05/21/2024 00:35 Report Date: 05/21/2024 02:56 At the request of: SANCHO ESCALANTE Procedure: XR wrist RT min 3V EXAM: XR wrist RT min 3V HISTORY: injury COMPARISON: None. TECHNIQUE: 3 views of the right wrist were obtained. FINDINGS: No acute fracture or dislocation is seen. There are well-corticated ossific densities adjacent to the ulnar styloid process, likely related to remote trauma. The joint spaces are preserved. XR/XR wrist RT min 3V IMPRESSION: 1. No acute fracture or dislocation of the right wrist is seen. If pain persists, repeat radiographs are recommended in 7-10 days. Electronically authenticated by: Lauren LOVE Date: 05/21/2024 02:56
== END 2024-05-21 02:29 | disposition home or self-care (01) ==
PROVIDERS: Emergency Provider Internal Medicine
DX: S52.614A Nondisplaced fracture of right ulna styloid process, initial encounter for closed fracture (principal); X50.9XXA Other and unspecified overexertion or strenuous movements or postures, initial encounter
CPT/HCPCS: 73110; 99283

== ENCOUNTER 2024-05-27 21:10 | Emergency (ER) | payer OTHER, SELFPAY ==
[2024-05-27 21:12] VITALS: BP 150/98; PULSE 77; TEMP 36.6; O2SAT 99; BMI 30.7
--- OUTSIDE RECORDS SUMMARY | 2024-05-27 21:16 | XMS_ITS | CCD ---
Author Organization [facility] CliniSymo Care Team Providers Care Architectural Renderer Name Role Phone Dano Shukla Primary Care [...] [employer] Unavailable AMALIA MENDIETA Attending Unavailable SHUKAL, DR ARAUJO Primary Care Unavailable AMALIA MENDIETA [...] Unavailable MD Dano Shukla Primary Care Provider DO Rola Edwards Attending Provider Dano Shukla MD Primary Care Provider SARKIS BARLOW Attending Unavailable SARKIS BARLOW Attending Unavailable ROLA EDWARDS Attending Unavailable SARKIS BARLOW Attending Unavailable NO FAMILY, PHYSICIAN Primary Care Provider Unava ilable GINNY Lepe Emergency Provider Kevin Lepe Attending Unavailable Kevin Lepe Admitting Unavailable NO FAMILY, PHYSICIAN Primary Care Unavailable Medications Current Medications Medication Drug Class(es) Dates Sig (Normalized) Sig (Original) acetaminophen 325 mg / HYDROcodone bitartrate 5 mg oral tablet (6 sources) Opioid Agonist Start: 10-04-2023 End: 11-24-2023 HYDROcodone-acetam inophen ([place]) 5-325 MG tablet Start: 02-22-2020 take 1 [...] hours as needed for Pain. 0 Active [id number] 200 actuat albuterol 0.09 mg/actuat metered dose [...] 2 puff(s) by inhalation in the morning Jxopbxb-Octjbiffkrt-Juhuzlpisg (Breztri Aerosphere) 160-9-4.8 MCG/ACT aerosol Indications: Moderate [...] patch 72 hour patch 28 actuat tiotropium 0.86849 mg/actuat inhalation spray (3 sources) Anticholinergic Start: [...] by Elijah Bermeo on 12/08/2022 1049 Normal [facility] Glucose Glucometer (dC) [M ass/Vol]Ordered By: Rola Edwards on 10-25-2022 Glucose [Mass/Vol] 102 mg/dL [facility] Comment on above: Random Glucose Refer ence [...] by Terrence Chavis on 09/14/2022 1159 Normal [facility] US Testicular/Scrotumon 08-17 US Testicular/Scrotu m CLINICAL [...] by Andrews Restrepo on 09/01/2022 1700 Normal [facility] CBC AUTO DIFFon 08-25-2022 BASO # 0.0 103/ul Normal 0.0-0.1 [facility] Comment on above: Performed By: #### C BC ####[facility] M[address] [place], [place] [address]Dr. Manuel Harrison Basophils/100 WBC (Bld) 0.6 % Normal 0.2-2.0 [facility] Comment on above: Performed By: #### C BC ####[facility] [address] [place], [place] [address]Dr. Manuel Harrison EO # 0.3 103/ul Normal 0.0-0.7 [facility] Comment on above: Performed By: #### C BC ####[facility] [address] [place], [place] [address]Dr. Manuel Harrison Eosinophils/100 WBC (Bld) 4.2 % Normal 0.9-7.0 [facility] Comment on above: Performed By: #### C BC ####[facility] Aas[address] [place], [place] [address]Dr. Manuel Harrison Erythrocyte distribution width (RBC) [Ratio] 13.2 % Normal 11.0-15.0 [facility] Comment on above: Performed By: #### C BC ####[facility] [address] [place], [place] [address]Dr. Manuel Harrison Hematocrit (Bld) [Volume fraction] 43.1 % Normal 42.0-54.0 [facility] Comment on above: Performed By: #### C BC ####[facility] R[address] [place], [place] [address]Dr. Manuel Harrison Hemoglobin (Bld) [Mass/Vol] 15.0 g/dL Normal 14.0-18.0 [facility] Comment on above: Performed By: #### C BC ####[facility] [address] [place], [place] [address]Dr. Manuel Harrison IG # 0.01 10e3/ul Normal 0.00-0.03 [facility] Comment on above: Performed By: #### C BC ####[facility] [address] [place], [place] [address]Dr. Manuel Harrison IG % 0.2 % Normal 0.0-0.5 [facility] Comment on above: Performed By: #### C BC ####[facility] [address] [place] [address]DrCelso Harrison LYMPH # 2.7 103/ul Normal 1.2-3.8 [facility] Comment on above: Performed By: #### C BC ####[facility] [address] [address]DrCelso Harrison Lymphocytes/100 WBC (Bld) 42.9 % Normal 20.5-60.0 [facility] Comment on above: Performed By: #### C BC ####[facility] [address] [place], [place] [address]DrCelso Harrison MANUAL DIFF REQ NO Normal [facility] Comment on above: Performed By: #### C BC ####[facility] [address] [place], [place] [address]Dr. Manuel Harrison MCH (RBC) [Entitic mass] 29.1 pg Normal 25.9-34.0 [facility] Comment on above: Performed By: #### C BC ####[facility] Fet[address] [place], [place] [address]Dr. Cecilila Harrison MCHC (RBC) [Mass/Vol] 34.8 g/dL Normal 29.9-35.2 [facility] Comment on above: Performed By: #### C BC ####[facility] [address] [place], [place] [address]DrCelso Harrison MCV (RBC) [Entitic vol] 83.7 fL Normal 80.0-94.0 [facility] Comment on above: Performed By: #### C BC ####[facility] [address] [place], [place] [address]DrCelso Harrison MONO # 0.4 103/ul Normal 0.3-0.8 [facility] Comment on above: Performed By: #### C BC ####[facility] [address] [place], [place] [address]Dr. Manuel Harrison Monocytes/100 WBC (Bld) 6.5 % Normal 1.7-12.0 [facility] Comment on above: Performed By: #### C BC ####[facility] [address] [address]Dr. Manuel Harrison NEUT # 2.8 103/ul Normal 1.4-6.5 [facility] Comment on above: Performed By: #### C BC ####[facility] [address] [place] [address]Dr. Manuel Harrison Neutrophils/100 WBC (Bld) 45.6 % Normal 43.0-75.0 [facility] Comment on above: Performed By: #### C BC ####[facility] [address] [address]Dr. Manuel Harrison Platelet mean volume (Bld) [Entitic vol] 11.2 fL Normal 9.5-13.5 [facility] Comment on above: Performed By: #### C BC ####[facility] [address] [address]Dr. Manuel Harrison PLT 222 103/ul Normal 150-450 [facility] Comment on above: Performed By: #### C BC ####[facility] [address] [place], [place] [address]Dr. Manuel Harrison RBC 5.15 106/ul Normal 4.70-6.10 [facility] Comment on above: Performed By: #### C BC ####[facility] [address] [place], [place] [address]Dr. Manuel Harrison WBC 6.2 103/ul Normal 4.0-11.0 [facility] Comment on above: Performed By: #### C BC ####[facility] [address] [place], [place] [address]Dr. Manuel Harrison CT ABD/PELVIS WO CONon 08-25 [...] Lauren LOVE Date: 2022-08-24 23:23 Normal [facility] ER URINE PROFILEon 2 Bilirubin Ql (U) Negative Normal NEGATIVE [facility] Comment on above: Performed By: #### E RUR #### [facility] [address] [place] [address] Dr. Manuel Harrison Clarity (U) CLEAR Normal CLEAR [facility] Comment on above: Performed By: #### E RUR #### [facility] [address] [place] [address] Dr. Manuel Harrison Color (U) YELLOW Normal YELLOW [facility] Comment on above: Performed By: #### E RUR #### [facility] [address] [place] [address] Dr. Manuel Harrison ERUAHD A micrscopic examina tion will be performed if indicated. Normal [facility] Comment on above: Performed By: #### E RUR #### [facility] [address] [place] [address] Dr. Manuel Harrison Glucose Ql (U) Negative Normal NEGATIVE [facility] Comment on above: Performed By: #### E RUR #### [facility] [address] [place] [address] Dr. Manule Harrison Hemoglobin Ql (U) Negative Normal NEGATIVE [facility] Comment on above: Performed By: #### E RUR #### [facility] [address] [place] [address] Dr. Manuel Harrison Ketones Ql (U) Negative Normal NEGATIVE [facility] Comment on above: Performed By: #### E RUR #### [facility] [address] [place] [address] Dr. Manuel Harrison LEUKOCYTES Negative Normal NEGATIVE [facility] Comment on above: Performed By: #### E RUR #### [facility] [address] [place] [address] Dr. Manuel Harrison Nitrite Ql (U) Negative Normal NEGATIVE [facility] Comment on above: Performed By: #### E RUR #### [facility] [address] [place] [address] Dr. Manuel Harrison pH (U) 7.0 [pH] Normal 5-9 [facility] Comment on above: Performed By: #### E RUR #### [facility] [address] [place] [address] Dr. Manuel Harrison SPEC GRAVITY 1.025 Normal 1.005-<=1.02 5 [facility] Comment on above: Performed By: #### E RUR #### [facility] [address] [place] [address] Dr. Manuel Harrison UA PROTEIN Negative Normal NEGATIVE/ TRACE [facility] Comment on above: Performed By: #### E RUR #### [facility] [address] [place] [address] Dr. Manuel Harrison UR MICRO IND NOT INDICATED Normal [facility] Comment on above: Performed By: #### E RUR #### [facility] [address] [place] [address] Dr. Manuel Harrison Urobilinogen Qn (U) 4 {Chika'U}/dL Abnormal 0.2 - 1.0 [facility] Comment on above: Performed By: #### E RUR #### [facility] [address] [place] [address] Dr. Manuel Harrison PROF 14(COMP METB)on 022 Albumin [Mass/Vol] 3.9 g/dL Normal 3.4-5.0 [facility] Comment on above: Performed By: #### C MP #### [facility] [address] [address] [address] Manuel Harrison Albumin/Globulin [Mass ratio] 1.2 {ratio} Normal [facility] Comment on above: Performed By: #### C MP #### [facility] [address] [address] [address] Manuel Harrison ALP [Catalytic activity/Vol] 56 U/L Normal 46-116 [facility] Comment on above: Performed By: #### C MP #### [facility] [address] [place] [address] Dr. Manuel Harrison ALT [Catalytic activity/Vol] 38 U/L Normal 16-63 [facility] Comment on above: Performed By: #### C MP #### [facility] [address] [address] [address] Manuel Harrison Anion gap [Moles/Vol] 8.6 mmol/L Normal [facility] Comment on above: Performed By: #### C MP #### [facility] [address] [place] [address] Dr. Manuel Harrison AST [Catalytic activity/Vol] 25 U/L Normal 15-37 [facility] Comment on above: Performed By: #### C MP #### [facility] [address] [address] [address] Manuel Harrison Bilirubin [Mass/Vol] 0.4 mg/dL Normal 0.2-1.0 [facility] Comment on above: Performed By: #### C MP #### [facility] [address] [place] [address] Dr. Manuel Harrison Calcium [Mass/Vol] 8.7 mg/dL Normal 8.5-10.1 [facility] Comment on above: Performed By: #### C MP #### [facility] [address] [place] [address] Dr. Manuel Harrison Chloride [Moles/Vol] 105 mmol/L Normal 98-107 [facility] Comment on above: Performed By: #### C MP #### [facility] [address] [address] [address] Manuel Harrison CO2 [Moles/Vol] 27.8 mmol/L Normal 21.0-32.0 [facility] Comment on above: Performed By: #### C MP #### [facility] [address] [address] [address] Manuel Harrison Creatinine [Mass/Vol] 1.00 mg/dL Normal 0.70-1.30 [facility] Comment on above: Performed By: #### C MP #### [facility] [address] [place] [address] Dr. Manuel Harrison EGFR-AF NIGERIAN >60 Normal >=60 [facility] Comment on above: Performed By: #### C MP #### [facility] [address] [place] [address] Dr. Manuel Harrison EGFR-NON AF NIGERIAN >60 Normal >=60 [facility] Comment on above: Performed By: #### C MP #### [facility] [address] [address] [address] Manuel Harrison Globulin (S) [Mass/Vol] 3.3 g/dL Normal [facility] Comment on above: Performed By: #### C MP #### [facility] [address] [place] [address] Dr. Manuel Harrison Glucose [Mass/Vol] 108 mg/dL Critically high 74-106 [facility] Comment on above: Performed By: #### C MP #### [facility] [address] [place] [address] Dr. Manuel Harrison Potassium [Moles/Vol] 3.4 mmol/L Critically low 3.5-5.1 [facility] Comment on above: Performed By: #### C MP #### [facility] [address] [place] [address] Dr. Manuel Harrison Protein [Mass/Vol] 7.2 g/dL Normal 6.4-8.2 [facility] Comment on above: Performed By: #### C MP #### [facility] [address] [address] [address] Manuel Harrison Sodium [Moles/Vol] 138 mmol/L Normal 136-145 [facility] Comment on above: Performed By: #### C MP #### [facility] [address] [address] [address] Manuel Harrison Urea nitrogen [Mass/Vol] 21.0 mg/dL Critically high 7.0-18.0 [facility] Comment on above: Performed By: #### C MP #### [facility] [address] [address] [address] Manuel Harrison Urea nitrogen/Creatini ne [Mass ratio] 21.0 mg/mg Normal [facility] Comment on above: Performed By: #### C MP #### [facility] [address] [address] ANKLE LT WO [...] DENISSE MIRELES Date: 2022-04-07 08:34 Normal [facility] Complete Blood Count with Au to Diffon 03-08-2022 Basophils (Bld) [#/Vol] 0.04 10*3/uL Normal 0.00-0.20 [facility] Comment on above: Performed By: #### C MP, FERR, FT4, LIPD, TSH, FE Prof, CBCAD, MG, ESR #### [facility] [address], [place] [id number] Basophils/100 WBC (Bld) 0.9 % Normal [facility] Comment on above: Performed By: #### C MP, FERR, FT4, LIPD, TSH, FE Prof, CBCAD, MG, ESR #### [facility] [address], [place] [id number] Eosinophils (Bld) [#/Vol] 0.24 10*3/uL Normal 0.02-0.50 [facility] Comment on above: Performed By: #### C MP, FERR, FT4, LIPD, TSH, FE Prof, CBCAD, MG, ESR #### [facility] [address], [place] [id number] Eosinophils/100 WBC (Bld) 5.3 % Normal [facility] Comment on above: Performed By: #### C MP, FERR, FT4, LIPD, TSH, FE Prof, CBCAD, MG, ESR #### [facility] [address], [place] [id number] Erythrocyte distribution width (RBC) [Ratio] 13.4 % Normal 11.0-15.0 [facility] Comment on above: Performed By: #### C MP, FERR, FT4, LIPD, TSH, FE Prof, CBCAD, MG, ESR #### [facility] [address], [place] [id number] Hematocrit (Bld) [Volume fraction] 47.8 % Normal 38.5-50.0 [facility] Comment on above: Performed By: #### C MP, FERR, FT4, LIPD, TSH, FE Prof, CBCAD, MG, ESR #### [facility] [address], [place] [id number] Hemoglobin (Bld) [Mass/Vol] 15.9 g/dL Normal 13.0-17.1 [facility] Comment on above: Performed By: #### C MP, FERR, FT4, LIPD, TSH, FE Prof, CBCAD, MG, ESR #### [facility] [address], [place] [id number] Lymphocytes (Bld) [#/Vol] 1.9 10*3/uL Normal 0.9-3.9 [facility] Comment on above: Performed By: #### C MP, FERR, FT4, LIPD, TSH, FE Prof, CBCAD, MG, ESR #### [facility] [address], [place] [id number] Lymphocytes/100 WBC (Bld) 42.6 % Normal [facility] Comment on above: Performed By: #### C MP, FERR, FT4, LIPD, TSH, FE Prof, CBCAD, MG, ESR #### [facility] [address], [place] [id number] MCH (RBC) [Entitic mass] 29.2 pg Normal 27.0-33.0 [facility] Comment on above: Performed By: #### C MP, FERR, FT4, LIPD, TSH, FE Prof, CBCAD, MG, ESR #### [facility] [address], [place] [id number] MCHC (RBC) [Mass/Vol] 33.3 g/dL Normal 32.0-36.0 [facility] Comment on above: Performed By: #### C MP, FERR, FT4, LIPD, TSH, FE Prof, CBCAD, MG, ESR #### [facility] [address], [place] [id number] MCV (RBC) [Entitic vol] 88 fL Normal 80-100 [facility] Comment on above: Performed By: #### C MP, FERR, FT4, LIPD, TSH, FE Prof, CBCAD, MG, ESR #### [facility] [address], [place] [id number] Monocytes (Bld) [#/Vol] 0.3 10*3/uL Normal 0.2-0.9 [facility] Comment on above: Performed By: #### C MP, FERR, FT4, LIPD, TSH, FE Prof, CBCAD, MG, ESR #### [facility] [address], [place] [id number] Monocytes/100 WBC (Bld) 6.7 % Normal [facility] Comment on above: Performed By: #### C MP, FERR, FT4, LIPD, TSH, FE Prof, CBCAD, MG, ESR #### [facility] [address], [place] [id number] Neutrophils (Bld) [#/Vol] 2.0 10*3/uL Normal 1.5-7.8 [facility] Comment on above: Performed By: #### C MP, FERR, FT4, LIPD, TSH, FE Prof, CBCAD, MG, ESR #### [facility] [address], [place] [id number] Neutrophils/100 WBC (Bld) 44.3 % Normal [facility] Comment on above: Performed By: #### C MP, FERR, FT4, LIPD, TSH, FE Prof, CBCAD, MG, ESR #### [facility] [address], [place] [id number] Platelet mean volume (Bld) [Entitic vol] 11.70 fL Normal 7.50-12.50 [facility] Comment on above: Performed By: #### C MP, FERR, FT4, LIPD, TSH, FE Prof, CBCAD, MG, ESR #### [facility] [address], [place] [id number] Platelets (Bld) [#/Vol] 213 10*3/uL Normal 140-400 [facility] Comment on above: Performed By: #### C MP, FERR, FT4, LIPD, TSH, FE Prof, CBCAD, MG, ESR #### [facility] [address], [place] [id number] RBC (Bld) [#/Vol] 5.45 10*6/uL Normal 4.20-5.80 [facility] Comment on above: Performed By: #### C MP, FERR, FT4, LIPD, TSH, FE Prof, CBCAD, MG, ESR #### [facility] [address], [place] [id number] RDW-SD 42.8 fL Normal 37.0-50.0 [facility] Comment on above: Performed By: #### C MP, FERR, FT4, LIPD, TSH, FE Prof, CBCAD, MG, ESR #### [facility] [address], [place] [id number] WBC (Bld) [#/Vol] 4.5 10*3/uL Normal 3.8-11.0 [facility] Comment on above: Performed By: #### C MP, FERR, FT4, LIPD, TSH, FE Prof, CBCAD, MG, ESR #### [facility] [address], [place] [id number] [facility] 03-08-2022 Albumin [Mass/Vol] 4.7 g/dL Normal 3.6-5.1 [facility] Comment on above: Performed By: #### C MP, FERR, FT4, LIPD, TSH, FE Prof, CBCAD, MG, ESR #### [facility] [address], [place] [id number] Albumin/Globulin [Mass ratio] 1.8 {ratio} Normal 1.0-2.5 [facility] Comment on above: Performed By: #### C MP, FERR, FT4, LIPD, TSH, FE Prof, CBCAD, MG, ESR #### [facility] [address], [place] [id number] ALP [Catalytic activity/Vol] 71 U/L Normal 40-129 [facility] Comment on above: Performed By: #### C MP, FERR, FT4, LIPD, TSH, FE Prof, CBCAD, MG, ESR #### [facility] [address], [place] [id number] ALT [Catalytic activity/Vol] 39 U/L Normal 9-46 [facility] Comment on above: Result Comment: 09/16 Female reference range changed. Performed By: #### C MP, FERR, FT4, LIPD, TSH, FE Prof, CBCAD, MG, ESR #### [facility] [address], [place] [id number] Anion gap [Moles/Vol] 17 mmol/L Normal 12-20 [facility] Comment on above: Result Comment: Effe ctive 10/22/2019 reference range changed. Performed By: #### C MP, FERR, FT4, LIPD, TSH, FE Prof, CBCAD, MG, ESR #### [facility] [address], [place] [id number] AST [Catalytic activity/Vol] 27 U/L Normal 10-40 [facility] Comment on above: Performed By: #### C MP, FERR, FT4, LIPD, TSH, FE Prof, CBCAD, MG, ESR #### [facility] [address], [place] [id number] Bilirubin [Mass/Vol] 0.42 mg/dL Normal 0.30-1.20 [facility] Comment on above: Performed By: #### C MP, FERR, FT4, LIPD, TSH, FE Prof, CBCAD, MG, ESR #### [facility] [address], [place] [id number] BUN/CREA 16 Ratio Normal 6-22 [facility] Comment on above: Performed By: #### C MP, FERR, FT4, LIPD, TSH, FE Prof, CBCAD, MG, ESR #### [facility] [address], [place] [id number] Calcium [Mass/Vol] 9.6 mg/dL Normal 8.6-10.2 [facility] Comment on above: Performed By: #### C MP, FERR, FT4, LIPD, TSH, FE Prof, CBCAD, MG, ESR #### [facility] [address], [place] [id number] Chloride [Moles/Vol] 105 mmol/L Normal 98-107 [facility] Comment on above: Performed By: #### C MP, FERR, FT4, LIPD, TSH, FE Prof, CBCAD, MG, ESR #### [facility] [address], [place] [id number] CO2 [Moles/Vol] 25 mmol/L Normal 20-31 [facility] Comment on above: Performed By: #### C MP, FERR, FT4, LIPD, TSH, FE Prof, CBCAD, MG, ESR #### [facility] [address], [place] [id number] Creatinine [Mass/Vol] 0.8 mg/dL Normal 0.7-1.4 [facility] Comment on above: Performed By: #### C MP, FERR, FT4, LIPD, TSH, FE Prof, CBCAD, MG, ESR #### [facility] [address], [place] [id number] eGFRAA 137 mL/min/1.73m2 Normal >60 [facility] Comment on above: Performed By: #### C MP, FERR, FT4, LIPD, TSH, FE Prof, CBCAD, MG, ESR #### [facility] [address], [place] [id number] eGFRNAA 113 mL/min/1.73m2 Normal >60 [facility] Comment on above: Performed By: #### C MP, FERR, FT4, LIPD, TSH, FE Prof, CBCAD, MG, ESR #### [facility] [address], [place] [id number] Globulin (S) [Mass/Vol] 2.6 g/dL Normal 1.9-3.7 [facility] Comment on above: Performed By: #### C MP, FERR, FT4, LIPD, TSH, FE Prof, CBCAD, MG, ESR #### [facility] [address], [place] [id number] Glucose [Mass/Vol] 98 mg/dL Normal 65-99 [facility] Comment on above: Result Comment: For FASTING Glucose --- ADA reference ranges: Normal 65-99 mg/dl Prediabetes 100-125 Diabetes >/= 126 Performed By: #### C MP, FERR, FT4, LIPD, TSH, FE Prof, CBCAD, MG, ESR #### [facility] [address], [place] [id number] Potassium [Moles/Vol] 4.2 mmol/L Normal 3.5-5.5 [facility] Comment on above: Performed By: #### C MP, FERR, FT4, LIPD, TSH, FE Prof, CBCAD, MG, ESR #### [facility] [address], [place] [id number] Protein [Mass/Vol] 7.3 g/dL Normal 6.1-8.1 [facility] Comment on above: Performed By: #### C MP, FERR, FT4, LIPD, TSH, FE Prof, CBCAD, MG, ESR #### [facility] [address], [place] [id number] Sodium [Moles/Vol] 143 mmol/L Normal 135-146 [facility] Comment on above: Performed By: #### C MP, FERR, FT4, LIPD, TSH, FE Prof, CBCAD, MG, ESR #### [facility] [address], [place] [id number] Urea nitrogen [Mass/Vol] 12 mg/dL Normal 7-25 [facility] Comment on above: Performed By: #### C MP, FERR, FT4, LIPD, TSH, FE Prof, CBCAD, MG, ESR #### [facility] [address], [place] [id number] Ferritinon 03-08-2022 FERR 235.0 ng/mL Normal 30.0-400.0 [facility] Comment on above: Performed By: #### C MP, FERR, FT4, LIPD, TSH, FE Prof, CBCAD, MG, ESR #### [facility] [address], [place] [id number] Free T4on 03-08-2022 Free T4 [Mass/Vol] 0.94 ng/dL Normal 0.80-1.80 [facility] Mainframe Architect Comment on above: Performed By: #### C MP, FERR, FT4, LIPD, TSH, FE Prof, CBCAD, MG, ESR ####[facility] [address] [place], [place] [id number] Iron Profileon 03-08-2022 %FESAT 21 % Normal 15-60 [facility] Specialist Comment on above: Performed By: #### C MP, FERR, FT4, LIPD, TSH, FE Prof, CBCAD, MG, ESR #### [facility] [address] [place], [place] [id number] FE 66 ug/dL Normal 50-180 [facility] Comment on above: Result Comment: Refe rence range change 09/02/2017. Prior reference range F 37-145 ug/dL, M 59-158 ug/dL. Performed By: #### C MP, FERR, FT4, LIPD, TSH, FE Prof, CBCAD, MG, ESR #### [facility] [address], [place] [id number] TIBC 307 ug/dL Normal 250-425 [facility] Comment on above: Performed By: #### C MP, FERR, FT4, LIPD, TSH, FE Prof, CBCAD, MG, ESR #### [facility] [address], [place] [id number] UIBC 241 ug/dL Normal 112-347 [facility] Comment on above: Performed By: #### C MP, FERR, FT4, LIPD, TSH, FE Prof, CBCAD, MG, ESR #### [facility] [address], [place] [id number] Lipid Panelon 03-08-2022 Cholesterol [Mass/Vol] 219 mg/dL High 125-200 [facility] Comment on above: Result Comment: Low risk < 200mg/dL Borderline risk 201-239 mg/dl High risk > or equal to 240 Performed By: #### C MP, FERR, FT4, LIPD, TSH, FE Prof, CBCAD, MG, ESR #### [facility] [address], [place] [id number] Cholesterol in HDL [Mass/Vol] 39 mg/dL Low >40 [facility] Architect Comment on above: Result Comment: High Cardiovascular Risk HDL <40 mg/dL Low Cardiovascular Risk HDL > or equal to 60 mg/dl Performed By: #### C MP, FERR, FT4, LIPD, TSH, FE Prof, CBCAD, MG, ESR #### [facility] [address], [place] [id number] Cholesterol in LDL [Mass/Vol] 157 mg/dL Normal [facility] Architect Comment on above: Result Comment: LDL ATP III CLASSIFICATION LDL less than 100 mg/dl Optimal LDL 100-129 mg/dl Near or above optimal LDL 130-159 Borderline high LDL 160-189 High LDL greater than 189 mg/dl Very High Performed By: #### C MP, FERR, FT4, LIPD, TSH, FE Prof, CBCAD, MG, ESR #### [facility] [address] [place], [place] [id number] Cholesterol in VLDL [Mass/Vol] 23 mg/dL Normal [facility] Comment on above: Performed By: #### C MP, FERR, FT4, LIPD, TSH, FE Prof, CBCAD, MG, ESR #### [facility] [address], [place] [id number] Cholesterol.total /Cholesterol in HDL [Mass ratio] 6 {ratio} Normal [facility] Comment on above: Performed By: #### C MP, FERR, FT4, LIPD, TSH, FE Prof, CBCAD, MG, ESR #### [facility] [address], [place] [id number] Triglyceride [Mass/Vol] 115 mg/dL Normal 30-150 [facility] Comment on above: Result Comment: TRIG ATPIII CLASSIFICATIONS TRIG less than 150 mg/dl Normal TRIG 150-199 mg/dl Borderline High TRIG 200-500 mg/dl High TRIG greather than 500 mg/dl Very High Performed By: #### C MP, FERR, FT4, LIPD, TSH, FE Prof, CBCAD, MG, ESR #### [facility] [address], [place] [id number] Magnesiumon 03-08-2022 Magnesium [Mass/Vol] 2.0 mg/dL Normal 1.5-2.3 [facility] Comment on above: Performed By: #### C MP, FERR, FT4, LIPD, TSH, FE Prof, CBCAD, MG, ESR #### [facility] [address], [place] [id number] Prostatic Specific Antigen, Totalon 03-08-2022 TPSA 0.709 ng/mL Normal <4.000 [facility] Comment on above: Result Comment: PSA Test Method: ECLIA/Jeane e 601 Performed By: #### P SA #### [facility] [address], [place] [id number] RBC Sedimentation Rateon ESR (Bld) [Velocity] 6.00 mm/h Normal 0.00-15.00 [facility] Comment on above: Performed By: #### C MP, FERR, FT4, LIPD, TSH, FE Prof, CBCAD, MG, ESR ####[facility] [address] [place], [place] [id number] TSHon 03-08-2022 TSH 2.480 uIU/mL Normal 0.400-4.500 [facility] Mainframe Architect Comment on above: Performed By: #### C MP, FERR, FT4, LIPD, TSH, FE Prof, CBCAD, MG, ESR ####[facility] [address] [place], [place] [id number] Vitamin B12on 03-08-2022 Cobalamin (Vitamin B12) [Mass/Vol] 280 pg/mL Normal 211-946 [facility] Main[facility] Architect Comment on above: Performed By: #### B 12 #### [facility] [address], [place] [id number] ACID FAST SMEAR AND CXon Acid Fast Culture Negative Normal [facility] Comment on above: Result Comment: No a fabian fast bacilli isolated after 6 weeks. Performed By: #### A FB ####[facility] [address] [place] [address]Dr. Manuel Harrison Acid Fast Smear Negative Normal [facility] Comment on above: Performed By: #### A FB ####[facility] [address] [place]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
--- NOTE | 2024-05-27 21:22 | ED_ITS ---
HPI - Dental/Oral General Chief complaint: Dental/Oral Stated complaint: tooth pain Time Seen by Provider: 05/27/24 21:13 Source: patient Mode of arrival: walk-in Limitations: no limitations History of Present Illness HPI Narrative: .presents complaining of increasing dental pain over the past few days. no fever. no difficulty swallowing. No associated nausea or vomiting Related Data Home Medications ?Medication ?Instructions ?Recorded ?Confirmed No Known Home Medications 05/27/24 05/27/24 Allergies Allergy/AdvReac Type Severity Reaction Status Date / Time No Known Drug Allergies Allergy Verified 05/27/24 21:16 Review of Systems ROS0 Status of ROS 10 or more systems reviewed and unremark able except as noted in history and below [facility] Medical History (Updated 05/27/24 @ 21:28 by Donald Holloway MD) Deviated nasal septum ?J34.2 - Deviated nasal septum (ICD-10) Surgical History (Updated 10/09/23 @ 23:47 by Geetha Maldonado) H/O sinus surgery ?Z98.890 - Other specified postprocedural states (ICD-10) Social History Smoking status: Never smoker Exam Constitutional Vital Signs, click to edit/add: Last Vital Signs Temp 97.9 F 05/27/24 21:12 Pulse 77 05/27/24 21:12 Resp 16 05/27/24 21:12 BP 150/98 H 05/27/24 21:12 Pulse Ox 99 05/27/24 21:12 O2 Del Method Room Air 05/27/24 21:12 Common normals: no apparent distress, average body habitus, oriented x3, no limitations, healthy appearing, alert and well nourished [facility] Common normals: normocephalic and head/scalp atraumatic Other: dental caries left lower premolar with mild surrounding swelling. no facial swelling Eye Common normals: PERRL, EOMs intact bilaterally and conjunctivae normal Neck & C-Spine Common normals: full ROM and no lymphadenopathy Respiratory Common normals: normal respiratory effort, no retractions, no use of accessory muscles and clear to auscultation bilaterally Cardio Common normals: regular rate, regular rhythm, S1 normal heart sound and S2 normal heart sound Extremity Common normals: normal to inspection Neuro Common normals: oriented x3, CN's II-XII intact bilaterally, moves all extremities and no focal motor deficits Psych Appearance: grossly normal Course Vital Signs Vital signs: Vital Signs Temperature 97.9 F 05/27/24 21:12 Pulse Rate 77 05/27/24 21:12 Respiratory Rate 16 05/27/24 21:12 Blood Pressure 150/98 H 05/27/24 21:12 Pulse Oximetry 99 05/27/24 21:12 Oxygen Delivery Method Room Air 05/27/24 21:12 Temperature 97.9 F 05/27/24 21:12 Pulse Rate 77 05/27/24 21:12 Respiratory Rate 16 05/27/24 21:12 Blood Pressure 150/98 H 05/27/24 21:12 Pulse Oximetry 99 05/27/24 21:12 Oxygen Delivery Method Room Air 05/27/24 21:12 MDM - Dental/Oral MDM Narrative Medical decision making narrative: patient presents with dental abscess. Given dose of Augmentin in the department and discharged with a prescription for the same. Advised to followup with his dentist Discharge Plan Discharge Stand Alone Forms: Portal Instructions Chief Complaint: Dental/Oral Clinical Impression: Dental abscess Patient Disposition: Home, Self-Care Prescriptions / Home Meds: No Action No Known Home Medications Print Language: Swedish Instructions: Dental Abscess (ED) Additional Instructions: follow up with your dentist next week Referrals: Physician,Non-Staff, MD [Primary Care Provider] - 1 week
[2024-05-27] MEDS: ACETAMINOPHEN 300 MG/ 30 MG CODEINE TABLET 2 TAB PO (21:38)
[2024-05-27] MEDS: AMOXICILLIN/POTASSIUM CLAV 1 TAB TABLET PO (21:38)
== END 2024-05-27 21:44 | disposition home or self-care (01) ==
PROVIDERS: Emergency Provider Internal Medicine
DX: K04.7 Periapical abscess without sinus (principal)
CPT/HCPCS: 99283

== ENCOUNTER 2024-11-09 00:28 | Emergency (ER) | payer OTHER, SELFPAY ==
[2024-11-09 00:31] VITALS: BP 127/91; PULSE 97; TEMP 37.1; O2SAT 97; BMI 30.7
--- OUTSIDE RECORDS SUMMARY | 2024-11-09 00:35 | XMS_ITS | CCD ---
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 [employer] Warden Expl anation Advance Directives and Living Will Power of Professor Of Languages Advance Directive Response Recorded Date/ Time Advance Directives No July 20, 2017 10:06am Advance Directive Response Recorded Date/ Time Advance Directives No July 20, 2017 11:06am Summary Purpose Family History Father Name Dates Details Family history of hypertensi on(V17.49, Z82.49) Status:Active Father Name Dates Details Family history of hypertensi on(V17.49, Z82.49) Status:Active Father Name Dates Details Family history of hypertensi on(V17.49, Z82.49) Status:Active Procedure Findings Note Post Operative Note: 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 Left subtalar fusion with allograft bone Surgeon: Jaxon Resident/Fellow/Other Solvent Plant Operator: Benji Anesthesia: General Estimated Blood Loss (mL): [...] plateau fracture LEFT TIBIAL PLATEAU FRACTURE Procedures IL OPEN RX BILAT TIB PLAT FX LEFT OPEN REDUCTION INTERNAL FIXATION TIBIAL PLATEAU SUPINE, SYNTHES PROXIMAL TIBIAL PLATE; ARTHREX PLLA DISSOLVABLE PINS; BIOMET SMART PINS GENERAL,FEMORAL NERVE BLOCK (PAT ON ADMIT) Panda Davies MD [address] [place] [address] [facility] Reason Comments Asthma 3 month follow up (unrecognized sect ion and content) No Status Records FoundNo Status Records FoundNo Status Records FoundNo Status Records FoundNo Status Records FoundNo Status Records FoundNo Status Records FoundNo Status Records FoundNo Status Records Found INFORMATION SOURCE (unrecogn ized section and content) DATE CREATED AUTHOR 09/28/2019 [facility] DATE CREATED AUTHOR AUTHOR'S ORGANIZ ATION 12/16/2019 [facility] DATE CREATED AUTHOR AUTHOR'S ORGANIZ ATION 12/26/2019 [facility] DATE CREATED AUTHOR AUTHOR'S ORGANIZ ATION 03/01/2020 [facility] DATE CREATED AUTHOR AUTHOR'S ORGANIZ ATION 05/07/2020 [facility] DATE CREATED AUTHOR AUTHOR'S ORGANIZ ATION 08/27/2022 [facility] DATE CREATED AUTHOR AUTHOR'S ORGANIZ ATION 12/09/2022 [facility] DATE CREATED AUTHOR AUTHOR'S ORGANIZ ATION 11/25/2023 [facility] Specialists EPIC DATE CREATED AUTHOR AUTHOR'S ORGANIZ ATION 05/30/2024 [facility] y[facility] Care Teams (unrecognized sec tion and content) Team Status: Inactive Member Role Status Dates Dano Shukla MD Primary Care Provider Active Rola Edwards DO Attending Provider Active Team Status: Active Member Role Status Dates Dano Shukla MD Primary Care Provider Active Dynamometer Repairer Relationship Specialty Start Date End Date Dano Shukla MD [address] [place] [address] PCP - General Family Medicine 03/15/23 Dynamometer Repairer Relationship Specialty Start Date End Date Dano Shukla MD [address] [place] [address] PCP - General Family Medicine 03/15/23 Dynamometer Repairer Relationship Specialty Start Date End Date Dano Shukla MD [address] [place] [address] PCP - General Family Medicine 03/15/23 Team [...] BE BASED ON THE PRIMARY CLINICAL RECORDS. [employer] [facility]. provides no warranty or guarantee of the accuracy or completeness of information in this document.
--- NOTE | 2024-11-09 00:38 | XR_ITS ---
The [address] [address] Patient Name: JENI TERRAZAS MRN: [id number] date: 1985 Sex: M Assigned Patient Location: ER Current Patient Location: Accession/Order Number: [id number] Exam Date: 11/09/2024 00:38 Report Date: 11/09/2024 03:37 At the request of: LIZBET FLOYD Procedure: XR chest 2V EXAMINATION:XR chest 2V INDICATION:cough COMPARISON:None TECHNIQUE:Frontal and lateral projections of the chest are submitted. FINDINGS: The cardiomediastinal silhouette is not enlarged. The pulmonary vascularity is within normal limits. There are linear densities in each lung base which could be secondary to atelectasis versus developing infection given the clinical history of cough. There is no costophrenic angle blunting. XR/XR chest 2V IMPRESSION: Nonspecific bibasilar linear densities possibly related to atelectasis versus infection given the reported clinical history. Electronically authenticated by: FARHAT VAUGHN Date: 11/09/2024 03:37
[2024-11-09 00:39] VITALS: O2SAT 97
[2024-11-09 00:59] LABS: Influenza Virus A Antigen Negative; Influenza Virus B Antigen Negative; Internal Control Within Normal Limits; SARS-CoV-2 Ag NEGATIVE (NEGATIVE)
--- NOTE | 2024-11-09 01:05 | ED.GENADUL1 ---
HPI HPI - General Adult General Chief complaint: Shortness of Breath/Dyspnea Stated complaint: COUGH, SOB Time Seen by Provider: 11/09/24 00:30 Source: patient Mode of arrival: walk-in Limitations: no limitations History of Present Illness HPI narrative: 39-year-old male present for cough. He has had it for a month and it has been nonproductive. He has never smoked and he sees a workers compensation claims analyst because he has a nodule in his lung. He had a previous CAT scan which showed the nodule and it was not getting any bigger. No other findings were present on the CAT scan according to the patient. No fever. Related Data Previous Rx's ?Medication ?Instructions ?Recorded benzonatate 100 mg capsule 100 mg PO TID PRN cough #20 caps 11/09/24 doxycycline hyclate 100 mg capsule 100 mg PO BID 10 days #20 caps 11/09/24 Allergies Allergy/AdvReac Type Severity Reaction Status Date / Time No Known Drug Allergies Allergy Verified 11/09/24 00:35 Opioid HPI Opioid Management Most Recent Opioid Data: Last Pain Scale 7 11/09/24 00:40 11/09/24 Last ED Pain Assessment 11/09/24 00:39 Review of Systems ROS Narrative A ten point review of systems is negative except as noted above. [facility] Medical History (Updated 11/09/24 @ 02:07 by Kvng Hoover MD) Deviated nasal septum ?J34.2 - Deviated nasal septum (ICD-10) Surgical History (Updated 10/09/23 @ 23:47 by Geetha Maldonado) H/O sinus surgery ?Z98.890 - Other specified postprocedural states (ICD-10) Social History Smoking status: Never smoker Little interest or pleasure in doing things: not at all Feeling down, depressed, or hopeless: not at all Exam Narrative Exam Narrative: Nurses note and vital signs reviewed and patient is not hypoxic. General: The patient appears well and in no apparent distress. Patient is resting comfortably on cart. Skin: Warm, dry, no pallor noted. There is no rash noted. Head: Normocephalic, atraumatic Eye: Normal conjunctiva, no drainage Ears, Nose, Mouth, and Throat: oral mucosa is moist. Nares patent. Cardiovascular: Regular Rate and Rhythm Respiratory: Patient is in no distress, no accessory muscle use, lungs are clear to auscultation, no wheezing, rales or rhonchi. Good air movement present Back: non-tender GI: Soft and nontender Musculoskeletal: The patient has no evidence of calf tenderness, no pitting edema, symmetrical pulses noted bilaterally Neurological: A&O, normal speech Psychiatric: Cooperative Constitutional Vital Signs, click to edit/add: Last Vital Signs Temp 98.7 F 11/09/24 00:31 Pulse 86 11/09/24 02:22 Resp 16 11/09/24 02:22 BP 115/82 11/09/24 02:22 Pulse Ox 97 11/09/24 02:22 O2 Del Method Room Air 11/09/24 02:22 Course Vital Signs Vital signs: Vital Signs Temperature 98.7 F 11/09/24 00:31 Pulse Rate 97 H 11/09/24 00:31 Respiratory Rate 18 11/09/24 00:31 Blood Pressure 127/91 11/09/24 00:31 Pulse Oximetry 97 11/09/24 00:31 Oxygen Delivery Method Room Air 11/09/24 00:31 Temperature 98.7 F 11/09/24 00:31 Pulse Rate 86 11/09/24 02:22 Respiratory Rate 16 11/09/24 02:22 Blood Pressure 115/82 11/09/24 02:22 Pulse Oximetry 97 11/09/24 02:22 Oxygen Delivery Method Room Air 11/09/24 02:22 Medical Decision Making MDM Narrative Medical decision making narrative: COVID and influenza swabs are negative. Chest x-ray on my interpretation shows no acute findings. He is prescribed doxycycline and was started on that here. Treatment diagnosis and follow-up were discussed with the patient. Differential Diagnosis Differential Diagnosis: COVID, influenza, upper respiratory infection, pneumonia Lab Data Lab results reviewed: Yes I reviewed the patient's lab results Labs: Lab Results 11/09/24 Range/Units 00:36 Influenza Type A Ag Negative Influenza Type B Ag Negative SARS-CoV-2 Ag (CV2AG) Negative (NEGATIVE) Imaging Data Chest x-ray: My impression: No infiltrate Radiologist's impression: ITS Impressions Chest X-Ray 11/09/24 00:38 IMPRESSION: Nonspecific bibasilar linear densities possibly related to atelectasis versus infection given the reported clinical history. Electronically authenticated by: FARHAT VAUGHN Date: 11/09/2024 03:37 Discharge Plan Discharge Chief Complaint: Shortness of Breath/Dyspnea Clinical Impression: Upper respiratory infection Patient Disposition: Home, Self-Care Time of Disposition Decision: 02:06 Condition: Good Mode of Transportation: Private Vehicle Prescriptions / Home Meds: New doxycycline hyclate 100 mg capsule 100 mg PO BID 10 Days Qty: 20 0RF benzonatate 100 mg capsule 100 mg PO TID PRN (Reason: cough) Qty: 20 0RF Print Language: Malawian Instructions: Upper Respiratory Infection (ED) Referrals: Physician,Non-Staff, MD [Primary Care Provider] - 1 week Discharge Date/Time: 11/09/24 02:25
[2024-11-09] MEDS: DOXYCYCLINE MONOHYDRATE 100 MG CAPSULE PO (02:20)
[2024-11-09 02:22] VITALS: BP 115/82; PULSE 86; O2SAT 97
== END 2024-11-09 02:25 | disposition home or self-care (01) ==
PROVIDERS: Emergency Provider Emergency Medicine
DX: J06.9 Acute upper respiratory infection, unspecified (principal)
CPT/HCPCS: 71046; 87804; 87811; 99284

== ENCOUNTER 2025-01-20 18:58 | Emergency (ER) | payer OTHER, SELFPAY ==
[2025-01-20 19:02] VITALS: BP 153/82; PULSE 79; TEMP 36.4; O2SAT 97; BMI 31.4
--- OUTSIDE RECORDS SUMMARY | 2025-01-20 19:03 | XMS_ITS | CCD ---
Author Organization [facility] CliniSysd Care Team Providers Care Php Lamp Developer Name Role Phone Dano Shukla Primary Care Provider [phone] PANDA DAVIES Admitting Unavailable PANDA DAVIES Attending [...] Provider Dano Shukla MD Primary Care Provider [phone] SARKIS BARLOW Attending Unavailable SARKIS BARLOW Attending [...] Agonist Start: 10-04-2023 End: 11-24-2023 HYDROcodone-acetam inophen ([place]) 5-325 MG tablet Start: 02-22-2020 take 1 [...] hours as needed for Pain. 0 Active [id number] 200 actuat albuterol 0.09 mg/actuat metered dose [...] 2 puff(s) by inhalation in the morning Zhkniqf-Ffkhlqasdfk-Muxiuqjcgb (Breztri Aerosphere) 160-9-4.8 MCG/ACT aerosol Indications: Moderate [...] patch 72 hour patch 28 actuat tiotropium 0.15599 mg/actuat inhalation spray (4 sources) Anticholinergic Start: [...] by Elijah Bermeo on 12/08/2022 1049 Normal [facility] Specialist Glucose Glucometer (BldC) [M ass/Vol]Ordered By: Rola Edwards on 10-25-2022 Glucose [Mass/Vol] 102 mg/dL [facility] Comment on above: Random Glucose [...] by Terrence Chavis on 09/14/2022 1159 Normal [facility] Tester US Testicular/Scrotumon 11-1 US Testicular/Scrotu m CLINICAL [...] by Andrews Restrepo on 09/01/2022 1700 Normal [facility] CBC AUTO DIFFon 08-25-2022 BASO # 0.0 103/ul Normal 0.0-0.1 [facility] Comment on above: Performed By: #### C BC ####[facility] [address] [place] [id number]. Manuel Harrison Basophils/100 WBC (Bld) 0.6 % Normal 0.2-2.0 [facility] Comment on above: Performed By: #### C BC ####[facility] [address] [place], [place] [address]Dr. Manuel Harrison EO # 0.3 103/ul Normal 0.0-0.7 [facility] Comment on above: Performed By: #### C BC ####[facility] [address] [place] [id number]. Manuel Harrison Eosinophils/100 WBC (Bld) 4.2 % Normal 0.9-7.0 [facility] Comment on above: Performed By: #### C BC ####[facility] [address] [place] [id number]. Manuel Harrison Erythrocyte distribution width (RBC) [Ratio] 13.2 % Normal 11.0-15.0 [facility] Comment on above: Performed By: #### C BC ####[facility] [address] [place], [place] [address]DrCelso Harrison Hematocrit (Bld) [Volume fraction] 43.1 % Normal 42.0-54.0 [facility] Comment on above: Performed By: #### C BC ####[facility] [address] [place], [place] [address]Dr. Manuel Harrison Hemoglobin (Bld) [Mass/Vol] 15.0 g/dL Normal 14.0-18.0 [facility] Comment on above: Performed By: #### C BC ####[facility] [address] [place] [address]Dr. Manuel Harrison IG # 0.01 10e3/ul Normal 0.00-0.03 [facility] Comment on above: Performed By: #### C BC ####[facility] [address] [place] [address]Dr. Manuel Harrison IG % 0.2 % Normal 0.0-0.5 [facility] Comment on above: Performed By: #### C BC ####[facility] [address] [place], [place] [address]Dr. Manuel Harrison LYMPH # 2.7 103/ul Normal 1.2-3.8 [facility] Comment on above: Performed By: #### C BC ####[facility] [address] [place], [place] [address]Dr. Manuel Harrison Lymphocytes/100 WBC (Bld) 42.9 % Normal 20.5-60.0 [facility] Comment on above: Performed By: #### C BC ####[facility] [address] [place] [address]Dr. Manuel Harrison MANUAL DIFF REQ NO Normal [facility] Comment on above: Performed By: #### C BC ####[facility] [address] [place] [address]Dr. Manuel Harrison MCH (RBC) [Entitic mass] 29.1 pg Normal 25.9-34.0 [facility] Comment on above: Performed By: #### C BC ####[facility] [address] [place], [place] [address]Dr. Manuel Harrison MCHC (RBC) [Mass/Vol] 34.8 g/dL Normal 29.9-35.2 [facility] Comment on above: Performed By: #### C BC ####[facility] [address] [place] [address]Dr. Manuel Harrison MCV (RBC) [Entitic vol] 83.7 fL Normal 80.0-94.0 [facility] Comment on above: Performed By: #### C BC ####[facility] [address] [place] [id number]. Manuel Harrison MONO # 0.4 103/ul Normal 0.3-0.8 [facility] Comment on above: Performed By: #### C BC ####[facility] [address] [place] [id number]. Manuel Harrison Monocytes/100 WBC (Bld) 6.5 % Normal 1.7-12.0 [facility] Comment on above: Performed By: #### C BC ####[facility] [address] [place], [place] [address]Dr. Manuel Harrison NEUT # 2.8 103/ul Normal 1.4-6.5 [facility] Comment on above: Performed By: #### C BC ####[facility] [address] [place], [place] [address]Dr. Manuel Harrison Neutrophils/100 WBC (Bld) 45.6 % Normal 43.0-75.0 [facility] Comment on above: Performed By: #### C BC ####[facility] [address] [place], [place] [address]Dr. Manuel Harrison Platelet mean volume (Bld) [Entitic vol] 11.2 fL Normal 9.5-13.5 [facility] Comment on above: Performed By: #### C BC ####[facility] [address] [place], [place] [address]Dr. Manuel Harrison PLT 222 103/ul Normal 150-450 [facility] Comment on above: Performed By: #### C BC ####[facility] [address] [place], [place] [address]Dr. Manuel Harrison RBC 5.15 106/ul Normal 4.70-6.10 [facility] Comment on above: Performed By: #### C BC ####[facility] [address] [place], [place] [address]Dr. Mnauel Harrison WBC 6.2 103/ul Normal 4.0-11.0 [facility] Comment on above: Performed By: #### C BC ####[facility] [address] [place], [place] [address]Dr. Manuel Harrison CT ABD/PELVIS WO CONon 08-25 [...] Lauren LOVE Date: 2022-08-24 23:23 Normal [facility] ER URINE PROFILEon 2 Bilirubin Ql (U) Negative Normal NEGATIVE [facility] Comment on above: Performed By: #### E RUR #### [facility] [address] [place] [address] [address] Manuel Harrison Clarity (U) CLEAR Normal CLEAR [facility] Comment on above: Performed By: #### E RUR #### [facility] [address] [place], [place] [address] Dr. Manuel Harrison Color (U) YELLOW Normal YELLOW [facility] Comment on above: Performed By: #### E RUR #### [facility] [address] [place] [address] Dr. Manuel DAMON A micrscopic examina tion will be performed if indicated. Normal [facility] Comment on above: Performed By: #### E RUR #### [facility] [address] [place] [address] Dr. Manuel Harrison Glucose Ql (U) Negative Normal NEGATIVE [facility] Comment on above: Performed By: #### E RUR #### [facility] [address] [place] [address] Dr. Manuel Harrison Hemoglobin Ql (U) Negative Normal NEGATIVE [facility] Comment on above: Performed By: #### E RUR #### [facility] [address] [place] [address] Dr. Manuel Harrison Ketones Ql (U) Negative Normal NEGATIVE [facility] Comment on above: Performed By: #### E RUR #### [facility] [address] [place] [address] Dr. Manuel Harrison LEUKOCYTES Negative Normal NEGATIVE [facility] Comment on above: Performed By: #### E RUR #### [facility] [address] [place] [address] Dr. Manuel Harrison Nitrite Ql (U) Negative Normal NEGATIVE [facility] Comment on above: Performed By: #### E RUR #### [facility] [address] [place] [address] Dr. Manuel Harrison pH (U) 7.0 [pH] Normal 5-9 [facility] Comment on above: Performed By: #### E RUR #### [facility] [address] [place] [address] Dr. Manuel Harrison SPEC GRAVITY 1.025 Normal 1.005-<=1.02 5 [facility] Comment on above: Performed By: #### E RUR #### [facility] [address] [place] [address] Dr. Manuel Harrison UA PROTEIN Negative Normal NEGATIVE/ TRACE [facility] Comment on above: Performed By: #### E RUR #### [facility] [address] [place] [address] Dr. Manuel Harrison UR MICRO IND NOT INDICATED Normal [facility] Comment on above: Performed By: #### E RUR #### [facility] [address] [place] [address] Dr. Manuel Harrison Urobilinogen Qn (U) 4 {Chika'U}/dL Abnormal 0.2 - 1.0 [facility] Comment on above: Performed By: #### E RUR #### [facility] [address] [place] [address] Dr. Manuel Harrison PROF 14(COMP METB)on 022 Albumin [Mass/Vol] 3.9 g/dL Normal 3.4-5.0 [facility] Comment on above: Performed By: #### C MP #### [facility] [address] [place] [address] Dr. Manuel Harrison Albumin/Globulin [Mass ratio] 1.2 {ratio} Normal [facility] Comment on above: Performed By: #### C MP #### [facility] [address] [place] [address] Dr. Manuel Harrison ALP [Catalytic activity/Vol] 56 U/L Normal 46-116 [facility] Comment on above: Performed By: #### C MP #### [facility] [address] [place] [address] Dr. Manuel Harrison ALT [Catalytic activity/Vol] 38 U/L Normal 16-63 [facility] Comment on above: Performed By: #### C MP #### [facility] [address] [place] [address] Dr. Manuel Harrison Anion gap [Moles/Vol] 8.6 mmol/L Normal [facility] Comment on above: Performed By: #### C MP #### [facility] [address] [place] [address] Dr. Manuel Harrison AST [Catalytic activity/Vol] 25 U/L Normal 15-37 [facility] Comment on above: Performed By: #### C MP #### [facility] [address] [place] [address] Dr. Manuel Harrison Bilirubin [Mass/Vol] 0.4 mg/dL Normal 0.2-1.0 [facility] Comment on above: Performed By: #### C MP #### [facility] [address] [place] [address] Dr. Manuel Harrison Calcium [Mass/Vol] 8.7 mg/dL Normal 8.5-10.1 [facility] Comment on above: Performed By: #### C MP #### [facility] [address] [place] [address] Dr. Manuel Harrison Chloride [Moles/Vol] 105 mmol/L Normal 98-107 [facility] Comment on above: Performed By: #### C MP #### [facility] [address] [place] [address] Dr. Manuel Harrison CO2 [Moles/Vol] 27.8 mmol/L Normal 21.0-32.0 [facility] Comment on above: Performed By: #### C MP #### [facility] [address] [place] [address] Dr. Manuel Harrison Creatinine [Mass/Vol] 1.00 mg/dL Normal 0.70-1.30 [facility] Comment on above: Performed By: #### C MP #### [facility] [address] [place] [address] Dr. Manuel Harrison EGFR-AF [place] CITIZ[place] >60 Normal >=60 [facility] Comment on above: Performed By: #### C MP #### [facility] [address] [place] [address] Dr. Manuel Harrison EGFR-NON AF [place] CITIZ[place] >60 Normal >=60 [facility] Comment on above: Performed By: #### C MP #### [facility] [address] [place] [address] Dr. Manuel Harrison Globulin (S) [Mass/Vol] 3.3 g/dL Normal [facility] Comment on above: Performed By: #### C MP #### [facility] [address] [place] [address] Dr. Manuel Harrison Glucose [Mass/Vol] 108 mg/dL Critically high 74-106 [facility] Comment on above: Performed By: #### C MP #### [facility] [address] [place] [address] [address] Manuel Harrison Potassium [Moles/Vol] 3.4 mmol/L Critically low 3.5-5.1 [facility] Comment on above: Performed By: #### C MP #### [facility] [address] [place] [address] [address] Manuel Harrison Protein [Mass/Vol] 7.2 g/dL Normal 6.4-8.2 [facility] Comment on above: Performed By: #### C MP #### [facility] [address] [place] [address] [address] Manuel Harrison Sodium [Moles/Vol] 138 mmol/L Normal 136-145 [facility] Comment on above: Performed By: #### C MP #### [facility] [address] [place] [address] [address] Manuel Harrison Urea nitrogen [Mass/Vol] 21.0 mg/dL Critically high 7.0-18.0 [facility] Comment on above: Performed By: #### C MP #### [facility] [address] [place] [address] [address] Manuel Harrison Urea nitrogen/Creatini ne [Mass ratio] 21.0 mg/mg Normal [facility] Comment on above: Performed By: #### C MP #### [facility] [address] [place] [address] [address] ANKLE LT WO [...] DENISSE MIRELES Date: 2022-04-07 08:34 Normal [facility] Complete Blood Count with Au to Diffon 03-08-2022 Basophils (Bld) [#/Vol] 0.04 10*3/uL Normal 0.00-0.20 [facility] Comment on above: Performed By: #### C MP, FERR, FT4, LIPD, TSH, FE Prof, CBCAD, MG, ESR #### [facility] [address] [place], [place] [id number] Basophils/100 WBC (Bld) 0.9 % Normal [facility] T[facility] Comment on above: Performed By: #### C MP, FERR, FT4, LIPD, TSH, FE Prof, CBCAD, MG, ESR #### [facility] [address], [place] [id number] Eosinophils (Bld) [#/Vol] 0.24 10*3/uL Normal 0.02-0.50 [facility] Comment on above: Performed By: #### C MP, FERR, FT4, LIPD, TSH, FE Prof, CBCAD, MG, ESR #### [facility] [address] [place], [place] [id number] Eosinophils/100 WBC (Bld) 5.3 % Normal [facility] Comment on above: Performed By: #### C MP, FERR, FT4, LIPD, TSH, FE Prof, CBCAD, MG, ESR #### [facility] [address] [place], [place] [id number] Erythrocyte distribution width (RBC) [Ratio] 13.4 % Normal 11.0-15.0 [facility] Comment on above: Performed By: #### C MP, FERR, FT4, LIPD, TSH, FE Prof, CBCAD, MG, ESR #### [facility] [address], [place] [id number] Hematocrit (Bld) [Volume fraction] 47.8 % Normal 38.5-50.0 [facility] Comment on above: Performed By: #### C MP, FERR, FT4, LIPD, TSH, FE Prof, CBCAD, MG, ESR #### [facility] [address], [place] [id number] Hemoglobin (Bld) [Mass/Vol] 15.9 g/dL Normal 13.0-17.1 [facility] Comment on above: Performed By: #### C MP, FERR, FT4, LIPD, TSH, FE Prof, CBCAD, MG, ESR #### [facility] [address], [place] [id number] Lymphocytes (Bld) [#/Vol] 1.9 10*3/uL Normal 0.9-3.9 [facility] Comment on above: Performed By: #### C MP, FERR, FT4, LIPD, TSH, FE Prof, CBCAD, MG, ESR #### [facility] [address], [place] [id number] Lymphocytes/100 WBC (Bld) 42.6 % Normal [facility] Comment on above: Performed By: #### C MP, FERR, FT4, LIPD, TSH, FE Prof, CBCAD, MG, ESR #### [facility] [address], [place] [id number] MCH (RBC) [Entitic mass] 29.2 pg Normal 27.0-33.0 [facility] Comment on above: Performed By: #### C MP, FERR, FT4, LIPD, TSH, FE Prof, CBCAD, MG, ESR #### [facility] [address], [place] [id number] MCHC (RBC) [Mass/Vol] 33.3 g/dL Normal 32.0-36.0 [facility] Comment on above: Performed By: #### C MP, FERR, FT4, LIPD, TSH, FE Prof, CBCAD, MG, ESR #### [facility] [address], [place] [id number] MCV (RBC) [Entitic vol] 88 fL Normal 80-100 [facility] Comment on above: Performed By: #### C MP, FERR, FT4, LIPD, TSH, FE Prof, CBCAD, MG, ESR #### [facility] [address], [place] [id number] Monocytes (Bld) [#/Vol] 0.3 10*3/uL Normal 0.2-0.9 [facility] Comment on above: Performed By: #### C MP, FERR, FT4, LIPD, TSH, FE Prof, CBCAD, MG, ESR #### [facility] [address], [place] [id number] Monocytes/100 WBC (Bld) 6.7 % Normal [facility] Comment on above: Performed By: #### C MP, FERR, FT4, LIPD, TSH, FE Prof, CBCAD, MG, ESR #### [facility] [address], [place] [id number] Neutrophils (Bld) [#/Vol] 2.0 10*3/uL Normal 1.5-7.8 [facility] Comment on above: Performed By: #### C MP, FERR, FT4, LIPD, TSH, FE Prof, CBCAD, MG, ESR #### [facility] [address], [place] [id number] Neutrophils/100 WBC (Bld) 44.3 % Normal [facility] Comment on above: Performed By: #### C MP, FERR, FT4, LIPD, TSH, FE Prof, CBCAD, MG, ESR #### [facility] [address], [place] [id number] Platelet mean volume (Bld) [Entitic vol] 11.70 fL Normal 7.50-12.50 [facility] Comment on above: Performed By: #### C MP, FERR, FT4, LIPD, TSH, FE Prof, CBCAD, MG, ESR #### [facility] [address], [place] [id number] Platelets (Bld) [#/Vol] 213 10*3/uL Normal 140-400 [facility] Comment on above: Performed By: #### C MP, FERR, FT4, LIPD, TSH, FE Prof, CBCAD, MG, ESR #### [facility] [address], [place] [id number] RBC (Bld) [#/Vol] 5.45 10*6/uL Normal 4.20-5.[address] [facility] Comment on above: Performed By: #### C MP, FERR, FT4, LIPD, TSH, FE Prof, CBCAD, MG, ESR #### [facility] [address], [place] [id number] RDW-SD 42.8 fL Normal 37.0-50.0 [facility] Comment on above: Performed By: #### C MP, FERR, FT4, LIPD, TSH, FE Prof, CBCAD, MG, ESR #### [facility] [address], [place] [id number] WBC (Bld) [#/Vol] 4.5 10*3/uL Normal 3.8-11.0 [facility] Comment on above: Performed By: #### C MP, FERR, FT4, LIPD, TSH, FE Prof, CBCAD, MG, ESR #### [facility] [address], [place] [id number] Comprehensive Metabolic Pane [facility] 03-08-2022 Albumin [Mass/Vol] 4.7 g/dL Normal 3.6-5.1 [facility] Comment on above: Performed By: #### C MP, FERR, FT4, LIPD, TSH, FE Prof, CBCAD, MG, ESR #### [facility] [address], [place] [id number] Albumin/Globulin [Mass ratio] 1.8 {ratio} Normal 1.0-2.5 [facility] Comment on above: Performed By: #### C MP, FERR, FT4, LIPD, TSH, FE Prof, CBCAD, MG, ESR #### [facility] [address], [place] [id number] ALP [Catalytic activity/Vol] 71 U/L Normal 40-129 [facility] Comment on above: Performed By: #### C MP, FERR, FT4, LIPD, TSH, FE Prof, CBCAD, MG, ESR #### [facility] [address], [place] [id number] ALT [Catalytic activity/Vol] 39 U/L Normal 9-46 [facility] Comment on above: Result Comment: 09/16 Female reference range changed. Performed By: #### C MP, FERR, FT4, LIPD, TSH, FE Prof, CBCAD, MG, ESR #### [facility] [address], [place] [id number] Anion gap [Moles/Vol] 17 mmol/L Normal 12-20 [facility] Comment on above: Result Comment: Effe ctive 10/22/2019 reference range changed. Performed By: #### C MP, FERR, FT4, LIPD, TSH, FE Prof, CBCAD, MG, ESR #### [facility] [address], [place] [id number] AST [Catalytic activity/Vol] 27 U/L Normal 10-40 [facility] Comment on above: Performed By: #### C MP, FERR, FT4, LIPD, TSH, FE Prof, CBCAD, MG, ESR #### [facility] [address], [place] [id number] Bilirubin [Mass/Vol] 0.42 mg/dL Normal 0.30-1.20 [facility] Comment on above: Performed By: #### C MP, FERR, FT4, LIPD, TSH, FE Prof, CBCAD, MG, ESR #### [facility] [address], [place] [id number] BUN/CREA 16 Ratio Normal 6-22 [facility] Comment on above: Performed By: #### C MP, FERR, FT4, LIPD, TSH, FE Prof, CBCAD, MG, ESR #### [facility] [address], [place] [id number] Calcium [Mass/Vol] 9.6 mg/dL Normal 8.6-10.2 [facility] Comment on above: Performed By: #### C MP, FERR, FT4, LIPD, TSH, FE Prof, CBCAD, MG, ESR #### [facility] [address] [facility] [place] [id number] Chloride [Moles/Vol] 105 mmol/L Normal 98-107 [facility] Comment on above: Performed By: #### C MP, FERR, FT4, LIPD, TSH, FE Prof, CBCAD, MG, ESR #### [facility] [address], [place] [id number] CO2 [Moles/Vol] 25 mmol/L Normal 20-31 [facility] Comment on above: Performed By: #### C MP, FERR, FT4, LIPD, TSH, FE Prof, CBCAD, MG, ESR #### [facility] [address], [place] [id number] Creatinine [Mass/Vol] 0.8 mg/dL Normal 0.7-1.4 [facility] Comment on above: Performed By: #### C MP, FERR, FT4, LIPD, TSH, FE Prof, CBCAD, MG, ESR #### [facility] [address], [place] [id number] eGFRAA 137 mL/min/1.73m2 Normal >60 [facility] Comment on above: Performed By: #### C MP, FERR, FT4, LIPD, TSH, FE Prof, CBCAD, MG, ESR #### [facility] [address], [place] [id number] eGFRNAA 113 mL/min/1.73m2 Normal >60 [facility] Comment on above: Performed By: #### C MP, FERR, FT4, LIPD, TSH, FE Prof, CBCAD, MG, ESR #### [facility] [address], [place] [id number] Globulin (S) [Mass/Vol] 2.6 g/dL Normal 1.9-3.7 [facility] Comment on above: Performed By: #### C MP, FERR, FT4, LIPD, TSH, FE Prof, CBCAD, MG, ESR #### [facility] [address], [place] [id number] Glucose [Mass/Vol] 98 mg/dL Normal 65-99 [facility] Comment on above: Result Comment: For FASTING Glucose --- ADA reference ranges: Normal 65-99 mg/dl Prediabetes 100-125 Diabetes >/= 126 Performed By: #### C MP, FERR, FT4, LIPD, TSH, FE Prof, CBCAD, MG, ESR #### [facility] [address], [place] [id number] Potassium [Moles/Vol] 4.2 mmol/L Normal 3.5-5.5 [facility] Comment on above: Performed By: #### C MP, FERR, FT4, LIPD, TSH, FE Prof, CBCAD, MG, ESR #### [facility] [address], [place] [id number] Protein [Mass/Vol] 7.3 g/dL Normal 6.1-8.1 [facility] Comment on above: Performed By: #### C MP, FERR, FT4, LIPD, TSH, FE Prof, CBCAD, MG, ESR #### [facility] [address], [place] [id number] Sodium [Moles/Vol] 143 mmol/L Normal 135-146 [facility] Comment on above: Performed By: #### C MP, FERR, FT4, LIPD, TSH, FE Prof, CBCAD, MG, ESR #### [facility] [address], [place] [id number] Urea nitrogen [Mass/Vol] 12 mg/dL Normal 7-25 [facility] Comment on above: Performed By: #### C MP, FERR, FT4, LIPD, TSH, FE Prof, CBCAD, MG, ESR #### [facility] [address], [place] [id number] Ferritinon 03-08-2022 FERR 235.0 ng/mL Normal 30.0-400.0 [facility] Comment on above: Performed By: #### C MP, FERR, FT4, LIPD, TSH, FE Prof, CBCAD, MG, ESR #### [facility] [address], [place] [id number] Free T4on 03-08-2022 Free T4 [Mass/Vol] 0.94 ng/dL Normal 0.80-1.80 [facility] Comment on above: Performed By: #### C MP, FERR, FT4, LIPD, TSH, FE Prof, CBCAD, MG, ESR ####[facility] [address] [place], [place] [id number] Iron Profileon 03-08-2022 %FESAT 21 % Normal 15-60 [facility] Comment on above: Performed By: #### C MP, FERR, FT4, LIPD, TSH, FE Prof, CBCAD, MG, ESR #### [facility] [address], [place] [id number] FE 66 ug/dL Normal 50-180 [facility] Comment on above: Result Comment: Refe rence range change 09/02/2017. Prior reference range F 37-145 ug/dL, M 59-158 ug/dL. Performed By: #### C MP, FERR, FT4, LIPD, TSH, FE Prof, CBCAD, MG, ESR #### [facility] [address], [place] [id number] TIBC 307 ug/dL Normal 250-425 [facility] Comment on above: Performed By: #### C MP, FERR, FT4, LIPD, TSH, FE Prof, CBCAD, MG, ESR #### [facility] [address] [place], [place] [id number] UIBC 241 ug/dL Normal 112-347 [facility] System Specialist Comment on above: Performed By: #### C MP, FERR, FT4, LIPD, TSH, FE Prof, CBCAD, MG, ESR #### [facility] [address], [place] [id number] Lipid Panelon 03-08-2022 Cholesterol [Mass/Vol] 219 mg/dL High 125-200 [facility] Spindle Tester Comment on above: Result Comment: Low risk < 200mg/dL Borderline risk 201-239 mg/dl High risk > or equal to 240 Performed By: #### C MP, FERR, FT4, LIPD, TSH, FE Prof, CBCAD, MG, ESR #### [facility] [address], [place] [id number] Cholesterol in HDL [Mass/Vol] 39 mg/dL Low >40 [facility] System Specialist Comment on above: Result Comment: High Cardiovascular Risk HDL <40 mg/dL Low Cardiovascular Risk HDL > or equal to 60 mg/dl Performed By: #### C MP, FERR, FT4, LIPD, TSH, FE Prof, CBCAD, MG, ESR #### [facility] [address], [place] [id number] Cholesterol in LDL [Mass/Vol] 157 mg/dL Normal [facility] System Specialist Comment on above: Result Comment: LDL ATP III CLASSIFICATION LDL less than 100 mg/dl Optimal LDL 100-129 mg/dl Near or above optimal LDL 130-159 Borderline high LDL 160-189 High LDL greater than 189 mg/dl Very High Performed By: #### C MP, FERR, FT4, LIPD, TSH, FE Prof, CBCAD, MG, ESR #### [facility] [address], [place] [id number] Cholesterol in VLDL [Mass/Vol] 23 mg/dL Normal [facility] System Specialist Comment on above: Performed By: #### C MP, FERR, FT4, LIPD, TSH, FE Prof, CBCAD, MG, ESR #### [facility] [address], [place] [id number] Cholesterol.total /Cholesterol in HDL [Mass ratio] 6 {ratio} Normal [facility] System Specialist Comment on above: Performed By: #### C MP, FERR, FT4, LIPD, TSH, FE Prof, CBCAD, MG, ESR #### [facility] [address], [place] [id number] Triglyceride [Mass/Vol] 115 mg/dL Normal 30-150 [facility] Spindle Tester Comment on above: Result Comment: TRIG ATPIII CLASSIFICATIONS TRIG less than 150 mg/dl Normal TRIG 150-199 mg/dl Borderline High TRIG 200-500 mg/dl High TRIG greather than 500 mg/dl Very High Performed By: #### C MP, FERR, FT4, LIPD, TSH, FE Prof, CBCAD, MG, ESR #### [facility] [address], [place] [id number] Magnesiumon 03-08-2022 Magnesium [Mass/Vol] 2.0 mg/dL Normal 1.5-2.3 [facility] System Specialist Comment on above: Performed By: #### C MP, FERR, FT4, LIPD, TSH, FE Prof, CBCAD, MG, ESR #### [facility] [address], [place] [id number] Prostatic Specific Antigen, Totalon 03-08-2022 TPSA 0.709 ng/mL Normal <4.000 [facility] Comment on above: Result Comment: PSA Test Method: ECLIA/Jeane e 601 Performed By: #### P SA #### [facility] [address], [place] [id number] RBC Sedimentation Rateon ESR (Bld) [Velocity] 6.00 mm/h Normal 0.00-15.00 [facility] Comment on above: Performed By: #### C MP, FERR, FT4, LIPD, TSH, FE Prof, CBCAD, MG, ESR ####[facility] [address] [place], [place] [id number] TSHon 03-08-2022 TSH 2.480 uIU/mL Normal 0.400-4.500 [facility] Specialist Comment on above: Performed By: #### C MP, FERR, FT4, LIPD, TSH, FE Prof, CBCAD, MG, ESR ####[facility] [address] [place], [place] [id number] Vitamin B12on 03-08-2022 Cobalamin (Vitamin B12) [Mass/Vol] 280 pg/mL Normal 211-946 [facility] Comment on above: Performed By: #### B 12 #### [facility] [address], [place] [id number] ACID FAST SMEAR AND CXon Acid Fast Culture Negative Normal [facility] Comment on above: Result Comment: No a fabian fast bacilli isolated after 6 weeks. Performed By: #### A FB ####[facility] [address] [place], [place] [address]Ej. Manuel Harrison Acid Fast Smear Negative Normal [facility] Comment on above: Performed By: #### A FB ####[facility] [address] [place], [place] [address]Wp. Manuel Harrison [employer] Specimen Processing Tissue Grinding [facility] Comment on above: Performed By: #### A FB ####[facility] [address] [place], [place] [address]Ef. Manuel Harrison FUNGAL CULTUREon 02-16-2022 Fungus (Mycology) Culture Final report [facility] Comment on above: Performed By: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
--- NOTE | 2025-01-20 19:18 | ED.EXTPRO1 ---
HPI - Extremity Problem General Chief complaint: Extremity Problem, Nontraumatic Stated complaint: Extremity Injury, Upper Time Seen by Provider: 01/20/25 19:04 Source: patient Mode of arrival: walk-in Limitations: no limitations History of Present Illness HPI Narrative: 39year old male presents with left shoulder pain. Patient is right-hand dominant and states he began to have some pain in the left shoulder wakes him at night complaints like dull ache. He has pain with elevation above his head and any extension. Denies any known injury or trauma. He is taking Tylenol for pain without relief. Patient denies known history of tendinitis or rotator cuff injury. Related Data Previous Rx's ?Medication ?Instructions ?Recorded benzonatate 100 mg capsule 100 mg PO TID PRN cough #20 caps 11/09/24 doxycycline hyclate 100 mg capsule 100 mg PO BID 10 days #20 caps 11/09/24 prednisone 20 mg tablet 20 mg PO BID 5 days #10 tabs 01/20/25 Allergies Allergy/AdvReac Type Severity Reaction Status Date / Time No Known Drug Allergies Allergy Verified 01/20/25 19:06 Review of Systems ROS Status of ROS 10 or more systems reviewed and unremarkable except as noted in history and below [facility] Medical History (Updated 01/20/25 @ 19:34 by Coni Kennedy) Deviated nasal septum ?J34.2 - Deviated nasal septum (ICD-10) Surgical History (Updated 10/09/23 @ 23:47 by Geetha Maldonado) H/O sinus surgery ?Z98.890 - Other specified postprocedural states (ICD-10) Social History Smoking status: Never smoker Little interest or pleasure in doing things: not at all Feeling down, depressed, or hopeless: not at all Exam Narrative Exam Narrative: Nurses note and vital signs reviewed and patient is not hypoxic. General: The patient appears well and in no apparent distress. Patient is resting comfortably on cart. Skin: Warm, dry, no pallor noted. There is no rash noted. Head: Normocephalic, atraumatic Eye: Normal conjunctiva, no drainage, EOMI. PERRL Ears, Nose, Mouth, and Throat: oral mucosa is moist. Nares patent. Mouth without vesicles. Ear canals patent. Tm's without Erythema Cardiovascular: Regular Rate and Rhythm Respiratory: Patient is in no distress, no accessory muscle use, lungs are clear to auscultation, no wheezing, rales or rhonchi Musculoskeletal: left shoulder tenderness, no swelling no dislocation, pain with range of motion, elevation. The patient has no evidence of calf tenderness, no pitting edema, symmetrical pulses noted bilaterally Neurological: A&O x4, normal speech Psychiatric: Cooperative Constitutional Vital Signs, click to edit/add: Last Vital Signs Temp 97.6 F 01/20/25 19:02 Pulse 79 01/20/25 19:02 Resp 16 01/20/25 19:02 BP 153/82 H 01/20/25 19:02 Pulse Ox 97 01/20/25 19:02 O2 Del Method Room Air 01/20/25 19:02 Course Vital Signs Vital signs: Vital Signs Temperature 97.6 F 01/20/25 19:02 Pulse Rate 79 01/20/25 19:02 Respiratory Rate 16 01/20/25 19:02 Blood Pressure 153/82 H 01/20/25 19:02 Pulse Oximetry 97 01/20/25 19:02 Oxygen Delivery Method Room Air 01/20/25 19:02 Temperature 97.6 F 01/20/25 19:02 Pulse Rate 79 01/20/25 19:02 Respiratory Rate 16 01/20/25 19:02 Blood Pressure 153/82 H 01/20/25 19:02 Pulse Oximetry 97 01/20/25 19:02 Oxygen Delivery Method Room Air 01/20/25 19:02 MDM - Extremity (Nontraumatic) MDM Narrative Medical decision making narrative: 39-year-old male presents for chief complaint of left shoulder pain for the past several weeks. Denies any known injury or trauma. Examination consistent with possible tendinitis or rotator cuff injury. X-ray shows no acute swelling or deformity. He will placed on a short-term course of steroids and follow-up with orthopedics. Patient told to rest and use ice therapy. Medicated here with Toradol. Discharged home. Discharge Plan Discharge Chief Complaint: Extremity Problem, Nontraumatic Clinical Impression: Left shoulder pain Patient Disposition: Home, Self-Care Time of Disposition Decision: 19:33 Prescriptions / Home Meds: New prednisone 20 mg tablet 20 mg PO BID 5 Days Qty: 10 0RF No Action doxycycline hyclate 100 mg capsule 100 mg PO BID 10 Days Qty: 20 0RF benzonatate 100 mg capsule 100 mg PO TID PRN (Reason: cough) Qty: 20 0RF Print Language: Syriac Instructions: P.R.I.C.E. Treatment (ED), Shoulder Pain (ED) Referrals: Physician,Non-Staff, [Primary Care Provider] - 1 week Deepak Maldonado MD [Physician] - 01/28/25 10:30 am
[2025-01-20] MEDS: KETOROLAC TROMETHAMINE 60 MG/2 ML VIAL IM (19:27)
== END 2025-01-20 19:51 | disposition home or self-care (01) ==
PROVIDERS: Emergency Provider Emergency Medicine
DX: M25.512 Pain in left shoulder (principal)
CPT/HCPCS: 73030; 96372; 99284; J1885

== ENCOUNTER 2025-03-31 03:45 | Emergency (ER) | payer OTHER, SELFPAY ==
--- OUTSIDE RECORDS SUMMARY | 2024-06-12 07:45 | XMS_ITS | Continuity of Care Document ---
Author Organization [facility] Address [address] [place] [address] Phone Care Team Providers Care Charcoal Unloader Name Role Phone Valdez Knutson DMD Unavailable Unavailable Allergies, Adverse Reactions, Alerts Substance Reaction Status Criticality No Known Allergies Active No Inform ation Procedures Procedure Date Intraoral-periapical 1st Film Bitewig-single Film Oral Hygiene Instruction Limited Oral Eval Advance Directives Directive Yes / No Effective Date File Name No Information Encounters Encounter Description Practice Location Reason(s) For Visit Diagnoses Date Provider Providers Copied on Encounter [facility], [address] [place] [address], [id number], [place] tel:[phone] Dental Clinic de (chief complaint) Encounter for screening for dental disorders Zenia Kellogg. [address], [place], [id number], [place]. tel:[phone] Family History Family Member Type Diagnosis Age At Onset No Information Payers Payer name Insurance type Covered green party ID [place] adrianna(s) D [employer] [facility] [id number] D Medicaid [facility] [id number] Social History Type Description Quantity Date Captured Comments Alcohol Use Details Unknown Caffeine Use Details Unknown Tobacco Use Status No Information Smoking Status No Information Sex Male Sexual Orientation Straight or heterosexual Jan Gender Identity Male Chief Complaint And Reason For Visit From encounter dated '06/12/2024 11:45'. de (chief complaint). Description: de Reason For Referral Reason For Referral No Information Plan Of Treatment Date Type Action Status Goal Tdap. Due on due Goal Hepatitis C screening. Due o n due Goal Tdap Vaccine. Due on 2023 due Goal Unhealthy drug use screening . Due on due Goal Lipid panel. Due on 024 due Goal Depression screening. Due on due Goal Influenza vaccine. Due on Au due Goal PRAPARE ASSESSMENT. Due on A due Goal Hep A. Due on du e Goal RLP. Due on due History Of Present Illness Encounter Date Complaint History Of Prese nt Illness de de Functional Status Date Functional Assessmen t No Information Instructions Date Instruction Additional Infor mation No Information Assessments Type Assessment Date No Information Patient Care Teams Name Effective Dates (start - stop) Status Members No Information
--- OUTSIDE RECORDS SUMMARY | 2025-01-28 06:30 | XMS_ITS ---
Author Organization [facility] Address [address] [place] [address] Care Team Providers Care Prosecuting Attorney Name Role Phone Deepak Maldonado Unavailable [phone] Yessica Wallace Unavailable [phone] Allergies No Known Allergies REASON FOR VISIT [facility] ER LEFT SHOULDER PAIN Social History Tobacco Use: Social History Observation Description Date Details (start date - stop date) Never Smoker NA - NA AUDIT-C (Standard) Question Answer Notes Did you have a drink contain ing alcohol in the past year? Yes How often did you have a dri nk containing alcohol in the past year? Monthly or less (1 point) How many drinks did you have on a typical day when you were drinking in the past year? 1 or 2 drinks (0 point) How often did you have six o r more drinks on one occasion in the past year? Never (0 point) Points 1 Interpretation Negative Tobacco Control (Standard) Question Answer Notes Tobacco use: Nonsmoker Vital Signs Height 5'11 in 01/28/2025 Weight 225 lbs 01/28/2025 BMI 31.38 01/28/2025 Encounters Encounter Location Date Provider Diagnosis [facility] Office [address] [place] [address] [address] [place] [address] 01/28/2025 Yessica Madison Bursitis of left shoulder M75.52 and Left shoulder tendonitis M77.8 Assessments Encounter Date Diagnosis (ICD Code) Assessment Notes Treatment Notes Treatment Clinical Notes Section Notes 01/28/2025 Bursitis of left shoulder (ICD-10 - M75.52) Right rotator cuff tendinitis/ bursitis 01/28/2025 Left shoulder tendonitis (ICD-10 - M77.8) Right rotator cuff tendinitis/ bursitis 01/28/2025 Other The patient is having a lot of pain with resisted rotator cuff testing and we discussed corticosteroid injection and patient did wish to proceed. He is not diabetic. He will take OTC NSAIDs as needed and try to modify activities. We will see him back in 6 weeks for recheck. Right rotator cuff tendinitis/ bursitis Plan Of Treatment Treatment Notes Assessment Notes Other The patient is havin g a lot of pain with resisted rotator cuff testing and we discussed corticosteroid injection and patient did wish to proceed. He is not diabetic. He will take OTC NSAIDs as needed and try to modify activities. We will see him back in 6 weeks for recheck. Next Appt Details Follow Up: 6 Weeks, Reason: Medications Administered Medication Instructions Date of Administration Dosage Notes BUPIVACAINE 01/28/2025 2 mL lidocaine 01/28/2025 2 mL Depo-Medrol 01/28/2025 1 mL Progress Notes * JENI TERRAZAS MDOB: 4 (39 yo M)Acc No.[id number]:01/28/2025 Patient: Job JENI MONTOYA Provider: MARLON Juarez :1985 A ge:39 Y S ex:Male Date:01/28/2025 Address:[address] [place] [address], [id number] Subjective: * Chief Complaints: * T [facility] ER LEFT SHOULDER PAIN * HPI: G eneral Info per Patient Report: Have you seen another doctor in this practice? N o. S kayli affected is L eft. J oint or body part affected is n ronak, back, shoulder. P ain occurred s pontaneous. W ork related: N o. M otor vehicle accident: N o. T hird libertarian responsibility: N o. Q uality of pain is s evere. T ype of pain: s harp, dull, throbbing. H ave you been seen by a Dentist in the last year? N o. D o you have any dental problems? Y es, Broken. G eneral Follow Up Information: Gil is a 19-year-old male who presents to the office with complaints of left shoulder pain that started about a month ago. He denies any specific injury. 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 He did present to the hospital ER on 01/20 where he was getting a Toradol shot that did help a lot but he continues to have a lot of lateral shoulder pain. He denies any surgery to his left shoulder. He is right-handed. * ROS: M usculoskeletal: Joint pain Y es. J oint Swelling Y es. J oint stiffness Y es. N eurological: Weakness/ Paralysis of Feet/Hands Yes. * Medical History: * Surgical History: L t knee tibial plateau fracture 09/2019Lt ankle fusion 05/2022Lt ankle tendon repair 06/2021 * Family History: N o Family History documented.. * Social History: E xercise regularly D o you exercise? N o. W hat is your place of residence? W here do you live? P rivate home. A PRITI-C (Standard) D id you have a drink containing alcohol in the past year? Y es, H ow often did you have a drink containing alcohol in the past year? M onthly or less (1 point), H ow many drinks did you have on a typical day when you were drinking in the past year? 1 or 2 drinks (0 point), H ow often did you have six or more drinks on one occasion in the past year? N ever (0 point), P oints 1 , I nterpretation N egative. T obacco Control (Standard) T obacco use: N onsmoker. * Medications: N one * Allergies: N .K.D.A.no[Allergies Verified] Objective: * Vitals: H t: 5'11 , Wt: 225 lbs, BMI:31.38. * Examination: G eneral examination: O n exam patient is in no distress, age-appropriate, alert and oriented x 3. On inspection skin is intact, no erythema, no warmth to touch. There is full active forward flexion of the shoulder and internal rotation to the low/mid back bilaterally. Pain cannot be reproduced on exam with palpation. 5/5 strength with supraspinatus testing, 4/5 strength external rotation with a lot of pain, internal rotation 5/5. Positive Cannon/Neer's. Bilateral upper extremities are grossly distally neurovascularly intact. X -ray Imaging Studies: T hree-view x-rays of the left shoulder were reviewed from the [facility] from 01/20/2025 that were negative for fracture or dislocation. Mild degenerative changes of the AC joint. Assessment: * Assessment: 1. B ursitis of left shoulder - M75.52 (Primary) 2 . L eft shoulder tendonitis - M77.8 Right rotator cuff tendiniti s/bursitis. Plan: * Treatment: * Procedures: L eft shoulder subacromial space was injected using Depo/Medrol 40 mg mixed with local anesthetic. The patient tolerated the injection well. * Therapeutic Injections: BUPIVACAINE : 2 mL (Route: Other/Miscellaneous) given by Yessica Wallace PA-C LIDOCAINE : 2 mL given by Yessica Wallace PA-C Depo-Medrol : 1 mL (Route: Other/Miscellaneous) given by Yessica Wallace PA-C * Procedure Codes: 2 0610 Injection major joint/bursa, Modifiers: UD , [id number] Injection, Methylprednisolone Acetate 1 mg, Units: 40.00 , Modifiers: UD * Follow Up: 6 Weeks Forms: * Images: * Sign off status: Completed true * Provider: MARLON Juarez Date: 0 01/28/2025 Generated for John scott/Laura/Kyle on: 0 03/31/2025 03:53 AM EDT History and Physical Notes * HPI (History of Present Illness) Category Sub-Category Detail Notes Category Not es General Follow Up Information Gil is a 19-year-ol d male who presents to the office with complaints of left shoulder pain that started about a month ago. He denies any specific injury. 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 He did present to the hospital ER on 01/20 where he was getting a Toradol shot that did help a lot but he continues to have a lot of lateral shoulder pain. He denies any surgery to his left shoulder. He is right-handed. General Info per Patient Report Side affected is Left Joint or body part affected is neck, ghazal k, shoulder Pain occurred spontaneous Work related: No Motor vehicle accident: No Quality of pain is severe Type of pain: sharp, dull, throbbi ng Have you seen another doctor in this pra ctice? No Third libertarian responsibility: No Have you been seen by a Dentist in the l ast year? No Do you have any dental problems? Yes, Juliano hernández Examination Category Sub-Category Detail Notes Category Not es General examination On exam patient is in no distress, age-appropriate, alert and oriented x 3. On inspection skin is intact, no erythema, no warmth to touch. There is full active forward flexion of the shoulder and internal rotation to the low/mid back bilaterally. Pain cannot be reproduced on exam with palpation. 5/5 strength with supraspinatus testing, 4/5 strength external rotation with a lot of pain, internal rotation 5/5. Positive Cannon/Neer's. Bilateral upper extremities are grossly distally neurovascularly intact. X-ray Imaging Studies Three- view x-rays of the left shoulder were reviewed from the [facility] from 01/20/2025 that were negative for fracture or dislocation. Mild degenerative changes of the AC joint.
--- OUTSIDE RECORDS SUMMARY | 2025-03-18 04:00 | XMS_ITS ---
Author Organization [facility] Address [address] [place] [address] Care Team Providers Care Appraisal Manager Name Role Phone Deepak Maldonado [facility] [phone] REASON FOR VISIT LEFT SHOULDER BURSITIS/ TENDINITIS Encounters Encounter Location Date Provider Diagnosis [facility] [address] [place] [address] [place] [address] 03/18/2025 Deepak Maldonado Plan Of Treatment No Information Progress Notes * JENI TERRAZAS MDOB: 4 (39 yo M)Acc No.[id number]:03/18/2025 Patient: Job JENI MONTOYA Provider: Juanito Maldonado MD :1985 A ge:39 Y S ex:Male Date:03/18/2025 Address:[address] [place], [place] [id number] Subjective: * Chief Complaints: * 1 . LEFT SHOULDER BURSITIS/ TENDINITIS. * Medical History: Objective: * Vitals: Assessment: Plan: * Treatment: Forms: * Images: * Electronic signature of Dangelo Maldonado MD on 03/31/2025 at 03:52 AM EDT Sign off status: Pending * Provider: Juanito Maldonado MD Date: 03/18/2025 Generated for John scott/Laura/eTransmitting on: 03/31/2025 03:52 AM EDT
[2025-03-31 03:47] VITALS: BP 119/86; PULSE 83; TEMP 37.1; O2SAT 100; BMI 31.4
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
--- OUTSIDE RECORDS SUMMARY | 2025-03-31 03:53 | XMS_ITS | Encounter Summary ---
Author Organization [facility] Address [address] [place] [place] [address] Care Team Providers Care Evaluation Engineer Name Role Phone Dano Shukla MD Primary Care Provider [phone] Rola Edwards DO Unavailable [phone] Unallocated, [facility] Primary Care Provi sascha Encounter Details Date Type Department Care Team (Late st Contact Info) Description 05/16/2023 Abstract [facility] [address] [place] [address] Austin Chamberlain DO [address] [place] [address] Social History Tobacco Use Types Packs/Day Years Used Date Smoking Tobacco: Never Smokeless Tobacco: Never Alcohol Use Standard Drinks/Week Comments Yes 0 (1 standard drink = 0.6 oz pur e alcohol) caffeine: 3-4 cups per day Sex and Gender Information Value Date Recorded Sex Assigned at Not on file Legal Sex Male 6:44 PM EDT Gender Identity Not on file Sexual Orientation Not on file documented as of this encounter Plan of Treatment Not on file documented as of this encounter Visit Diagnoses Not on filedocumented in this encounter Care Teams Evaluation Engineer Relationship Specialty Start Date End Date Dano Shukla MD [address] [place] [address] PCP - General Family Medicine 03/15/23 05/20/24 Rola Edwards DO [address] [place] [address] PCP - [facility] 01/16/24 Unallocated, [facility] Provider, [address] [place] [address] PCP - General Family Medicine 05/21/24 documented as of this encounter
--- OUTSIDE RECORDS SUMMARY | 2025-03-31 03:53 | XMS_ITS | Encounter Summary ---
Author Organization [facility] Address [address] [place] [address] Care Team Providers Care Brusher Hand Name Role Phone Dano Shukla MD Primary Care Provider Rola Edwards DO Unavailable [phone] Unallocated, [facility] Primary Care Provi sascha Encounter Details Date Type Department Care Team (Late st Contact Info) Description 04/08/2023 Abstract [facility] DAWSON [address] [place] [id number] Kisha Rosales MA Social History Tobacco Use Types Packs/Day Years [...] on file Sexual Orientation Not on file COVID-19 Exposure Response Date Recorded In the last 10 days, have yo u been in contact with someone who was confirmed or suspected to have Coronavirus/COVID-19? No / Unsure 04/07/2023 10:53 AM EDT documented as of this encounter Plan of Treatment Not on file documented as of this encounter Visit Diagnoses Not on filedocumented in this encounter Care Teams Brusher Hand Relationship Specialty Start Date End Date Dano Shukla MD [address] [place] [address] PCP - General Family Medicine 03/15/23 05/20/24 Rola Edwards DO [address] [place] [address] PCP - [facility] 01/16/24 Unallocated, [facility] Provider, [address] [place] [address] PCP - General Family Medicine 05/21/24 documented as of this encounter
--- OUTSIDE RECORDS SUMMARY | 2025-03-31 03:53 | XMS_ITS | Clinical Summary ---
Author Organization [facility] Address [address] [place] [address] Care Team Providers Care Senior Contracts Manager Name Role Phone Dano Shukla MD Primary Care Provider [phone] Allergies No known active allergies Medications oxyCODONE-acetam inophen (PERCOCET) 5-325 MG per tablet Take 1 tablet by mouth every 4 hours as needed for Pain. Active Active Problems No known active problems Social History Tobacco Use Types Packs/Day Years Used Date Smoking Tobacco: Never Smokeless Tobacco: Never Alcohol Use Standard Drinks/Week Comments Not Currently 0 (1 standard drink = 0.6 oz pur e alcohol) Sex and Gender Information Value Date Recorded Sex Assigned at Not on file Legal Sex Male 8:56 PM EST Gender Identity Not on file Sexual Orientation Not on file Last Filed Vital Signs Vital Sign Reading Time Taken Comments Blood Pressure 132/62 09/20/2019 6:30 PM EST Pulse 107 09/20/2019 6:30 PM EST Temperature 36.6 C (97.8 F) 09/20/2019 5:00 PM EST Respiratory Rate 20 09/20/2019 6:30 PM EST Oxygen Saturation 99% 09/20/2019 6:30 PM EST Inhaled Oxygen Concentration - - Weight 95.3 kg (210 lb) 09/20/2019 9:09 AM EST Height 180.3 cm (5' 11 ) 09/20/2019 9:09 AM EST Body Mass Index 29.29 09/20/2019 9:09 AM EST Plan of Treatment Not on file Medical Devices Implanted Type Area Mine Engineering Supervisor Device Identifier Shelf Expiration Date Model / Serial / Lot Graft Canc Chip [id number] 15cc - [id number] Implanted:Qty : 1 on 09/20/2019 by Shahbaz Davies MD at [facility] Bone/Gra ft/Tissu e/Human/ Synth MUSCULOSKELETAL TRANSPLANT FND-PMM 06/08/2022 [id number] / [id number] / Plate Tib 3.5mm Lcp Prox 6h/117 Left Implanted:Qty : 1 on 09/20/2019 by Shahbaz Davies MD at [facility] Screw/Pl ate/Nail /Eulogio SYNTHES-PMM [id number] / / Screw Lk Slftp Robin Angl [id number] Implanted:Qty : 1 on 09/20/2019 by Shahbaz Davies MD at [facility] Screw/Pl ate/Nail /Eulogio SYNTHES-PMM [id number] / / Screw 3.5mm Robin Angl Lk 54mm Implanted:Qty : 1 on 09/20/2019 by Shahbaz Davies MD at [facility] Screw/Pl ate/Nail /Eulogio SYNTHES-PMM [id number] / / Screw Lk Slftp Robin Angle [id number] Implanted:Qty : 2 on 09/20/2019 by Shahbaz Davies MD at [facility] Screw/Pl ate/Nail /Eulogio SYNTHES-PMM [id number] / / Screw 3.5mm Lock Angle 65mm Implanted:Qty : 2 on 09/20/2019 by Shahbaz Davies MD at [facility] Screw/Pl ate/Nail /Eulogio SYNTHES-PMM [id number] / / Screw Lk Slftp Robin Angle [id number] Implanted:Qty : 3 on 09/20/2019 by Shahbaz Davies MD at [facility] Screw/Pl ate/Nail /Eulogio SYNTHES-PMM [id number] / / Screw Cortx Slftp Fthrd 3.5x48mm Implanted:Qty : 1 on 09/20/2019 by Shahbaz Davies MD at [facility] Screw/Pl ate/Nail /Eulogio SYNTHES-PMM [id number] / / Explanted Type Area Mine Engineering Supervisor Device Identifier Shelf Expiration Date Model / Serial / Lot Impl Kwire 5mm Thrd [place] 1.6x150 Explanted:Qty: 2 on 09/20/2019 at [facility] Screw/Plat e/Nail/Eulogio SYNTHES-PMM [id number] / / Impl Kwire Fixation [place] 1.25mm Explanted:Qty: 2 on 09/20/2019 at [facility] Screw/Plat e/Nail/Eulogio SYNTHES-PMM [id number] / / Insurance [employer] Care Teams Senior Contracts Manager Relationship Specialty Start Date End Date Dano Shukla MD PCP - General 09/20/19
--- OUTSIDE RECORDS SUMMARY | 2025-03-31 03:53 | XMS_ITS | Patient Health Record ---
Author Organization [facility] Address [address] [place] [address] Care Team Providers Care Helmet Hat Brim Cutter Name Role Phone Deepak Maldonado Unavailable [phone] Yessica Wallace Unavailable [phone] Allergies No Known Allergies Reason For Referral No Information Social History Tobacco Use: Social History Observation [...] 01/28/2025 Encounters Encounter Location Date Provider Diagnosis [address] [place] [address] [place] [address] 01/28/2025 Yessicadoug [place]land Bursitis of left shoulder M75.52 and Left [...] rotator cuff tendinitis/ bursitis Plan Of Treatment No Information Insurance Providers Payer Name Payer Address Payer Phone Subscriber Number Group Number Insured Name Patient Relationship to Insured Coverage Start Date Coverage End Date Medicaid [employer] [place] [address] [place] [address] [id number] JENI TERRAZAS Self - patient is the insured 5 Medications Administered Medication Instructions Date of Administration Dosage Notes BUPIVACAINE 01/28/2025 2 mL Depo-Medrol 01/28/2025 1 mL lidocaine 01/28/2025 2 mL Medical (General) History Medical History History ICD Code Asthma/COPD Surgical History Surgery Date(Month/Year) Lt ankle tendon repair 06/2021 Lt ankle fusion 05/2022 Lt knee tibial plateau fracture 09/2019
--- NOTE | 2025-03-31 03:57 | ED.EXTPRO1 ---
HPI - Extremity Problem General Chief complaint: Extremity Problem, Nontraumatic Stated complaint: LE PAIN Time Seen by Provider: 03/31/25 03:50 Source: patient Mode of arrival: ambulance Limitations: no limitations History of Present Illness HPI Narrative: cc - right knee pain Pt brought in by EMS for evaluation after developing pain and swelling in the right knee. He said that he had been evaluated for these same symptoms within the last week at [facility] ED and was started on antibiotics - Keflex - after he had negative xrays. He said that no blood tests were performed. PSHx - left ankle tendon repair Related Data Previous Rx's ?Medication ?Instructions ?Recorded benzonatate 100 mg capsule 100 mg PO TID PRN cough #20 caps 11/09/24 doxycycline hyclate 100 mg capsule 100 mg PO BID 10 days #20 caps 11/09/24 prednisone 20 mg tablet 20 mg PO BID 5 days #10 tabs 01/20/25 Allergies Allergy/AdvReac Type Severity Reaction Status Date / Time No Known Drug Allergies Allergy Verified 03/31/25 03:53 [facility] Medical History (Updated 03/31/25 @ 05:03 by Herbert Woods) Deviated nasal septum ?J34.2 - Deviated nasal septum (ICD-10) Surgical History (Updated 10/09/23 @ 23:47 by Geetha Maldonado) H/O sinus surgery ?Z98.890 - Other specified postprocedural states (ICD-10) Social History Smoking status: Never smoker Little interest or pleasure in doing things: not at all Feeling down, depressed, or hopeless: not at all Exam Narrative Exam Narrative: Vital signs reviewed and nurse's notes. The patient is not hypoxic. General: Alert, no acute distress, patient resting comfortably Skin: warm, intact, no pallor noted Head: Normocephalic, atraumatic Eye: Normal conjunctiva Respiratory: No acute distress Musculoskeletal: No evidence of deformity to the R knee. There is a moderate amount of swelling. There is no ecchymosis. No erythema is noted but the knee is warm to touch. DP and PT pulses are intact 2+. Normal sensation, normal capillary refill less than 2 seconds. There is no cyanosis or mottling noted. The patient has tenderness to all anterior aspects of the right knee. The patient is in too much pain to test for laxity with varus or valgus stressing or to check for a negative anterior drawer and Maria Ines testing. The patient was able to flex and extend although with a great deal of pain. Patient was able to extend leg off the cart with pain. No tenderness noted to the 5th MT, midfoot, ankle or proximal fibular area. There is no pain with calcaneal squeeze, achilles tendon is intact and no defect is palpated. The patient has no pelvic instability. The patient has no shortening or rotation noted to the bilateral lower extremities. Neurological: alert and orient x4, normal sensory and motor observed. Psychiatric: Cooperative Constitutional Vital Signs, click to edit/add: Last Vital Signs Temp 98.7 F 03/31/25 03:47 Pulse 83 03/31/25 03:47 Resp 20 03/31/25 03:47 BP 119/86 03/31/25 03:47 Pulse Ox 100 03/31/25 03:47 O2 Del Method Room Air 03/31/25 03:47 Course Vital Signs Vital signs: Vital Signs Temperature 98.7 F 03/31/25 03:47 Pulse Rate 83 03/31/25 03:47 Respiratory Rate 03/31/25 03:47 Blood Pressure 119/86 03/31/25 03:47 Pulse Oximetry 100 03/31/25 03:47 Oxygen Delivery Method Room Air 03/31/25 03:47 Temperature 98.7 F 03/31/25 03:47 Pulse Rate 83 03/31/25 03:47 Respiratory Rate 03/31/25 03:47 Blood Pressure 119/86 03/31/25 03:47 Pulse Oximetry 100 03/31/25 03:47 Oxygen Delivery Method Room Air 03/31/25 03:47 MDM - Extremity (Nontraumatic) MDM Narrative Medical decision making narrative: Patient presents by EMS for evaluation of right knee pain and swelling. He had been evaluated for this within the last week at [facility] and started on antibiotics. Call was placed to the ED at [facility] to request copy of the patient's ED records. EMS had already started a peripheral IV in the patient's right hand. Blood was drawn and sent for testing and the patient was ordered to undergo x-rays of the right knee. He was ordered to receive IV Solu-Medrol and IV Toradol. CBC was normal. Normal white blood cell count. Negative sed rate, negative CRP, negative uric acid. X-rays did not show any foreign body, fracture, subluxation. Patient stated that the Solu-Medrol and Toradol did not help his pain at all. Call was placed to the on-call hospitalist at [facility] to discuss transfer to their facility as we have no inpatient Ortho coverage. I spoke with the hospitalist at [facility] -Dr. Fry -who agreed to accept this patient's transfer to their facility for admission and orthopedic evaluation/consultation. The patient was given IV Dilaudid for pain and an South wrap was reapplied. Medical Records Attestation: I reviewed the patient's medical records. Medical records narrative: Emergency department chart from visit on March 25, 2025 was received and reviewed by me. According to the documentation, there was a superficial abrasion noted in the anterior aspect of the right knee. He was uncertain about possible injury. There is no warmth to the touch at that time but they did note a small amount of erythema and some edema. Patient was started on prednisone taper beginning with 60 mg daily for 3 days, also started on Keflex, as the patient described, with an South wrap for support and follow-up with Ortho - to be scheduled. Lab Data Labs: Lab Results 03/31/25 Range/Units 04:10 WBC 7.9 (4.0-11.0) 10^3/uL RBC 5.28 (4.70-6.10) 10^6/uL Hgb 16.0 (14.0-18.0) g/dL Hct 44.2 (42.0-54.0) % MCV 83.7 (80.0-94.0) fL MCH 30.3 (25.9-34.0) pg MCHC 36.2 H (29.9-35.2) g/dL RDW 12.9 (11.0-15.0) % Plt Count 211 (150-450) 10^3/uL MPV 11.2 (9.5-13.5) fL Neut % (Auto) 64.6 (43.0-75.0) % Lymph % (Auto) 25.2 (20.5-60.0) % Roosevelt % (Auto) 7.0 (1.7-12.0) % Eos % (Auto) 2.3 (0.9-7.0) % Baso % (Auto) 0.6 (0.2-2.0) % Neut # (Auto) 5.1 (1.4-6.5) 10^3/uL Lymph # (Auto) 2.0 (1.2-3.8) 10^3/uL Roosevelt # (Auto) 0.6 (0.3-0.8) 10^3/uL Eos # (Auto) 0.2 (0.0-0.7) 10^3/uL Baso # (Auto) 0.1 (0.0-0.1) 10^3/uL Abs Immat Gran (auto) 0.02 (0.00-0.03) 10^3/uL Imm/Tot Granulo (auto) 0.3 (0.0-0.5) % ESR 7 (<=15) mm/hr Sodium 141 (136-145) mmol/L Potassium 3.5 (3.5-5.1) mmol/L Chloride 106 (98-107) mmol/L Carbon Dioxide 20.1 L (21.0-32.0) mmol/L Anion Gap 18.4 BUN 19.0 H (7.0-18.0) mg/dL Creatinine 0.82 (0.70-1.30) mg/dL Est GFR ( Amer) >60 (>=60 mL/min/1.73m^2) Est GFR (Non-Af Amer) >60 (>=60 mL/min/1.73m^2) BUN/Creatinine Ratio 23.2 Glucose 112 H (74-106) mg/dL Uric Acid 5.5 (3.5-7.2) mg/dL Calcium 9.1 (8.5-10.1) mg/dL C-Reactive Protein <0.50 (<=0.50) mg/dL Discharge Plan Discharge Chief Complaint: Extremity Problem, Nontraumatic Clinical Impression: Acute pain of right knee, Effusion, right knee Patient Disposition: [facility] Time of Disposition Decision: 05:03
[2025-03-31 04:18] LABS: Basophils Absolute Auto 0.1 10^3/uL (0.0-0.1); Basophils Percent Auto 0.6 % (0.2-2.0); Eosinophils Absolute Auto 0.2 10^3/uL (0.0-0.7); Eosinophils Percent Auto 2.3 % (0.9-7.0); Hematocrit 44.2 % (42.0-54.0); Immature Granulocytes Abs Auto 0.02 10^3/uL (0.00-0.03); Immature Granulocytes Pct Auto 0.3 % (0.0-0.5); Lymphocytes Percent Auto 25.2 % (20.5-60.0); Mean Corpuscular HGB Conc 36.2 g/dL (29.9-35.2); Mean Corpuscular Hemoglobin 30.3 pg (25.9-34.0); Mean Corpuscular Volume 83.7 fL (80.0-94.0); Mean Platelet Volume 11.2 fL (9.5-13.5); Monocytes Absolute Auto 0.6 10^3/uL (0.3-0.8); Neutrophils Absolute Auto 5.1 10^3/uL (1.4-6.5); Neutrophils Percent Auto 64.6 % (43.0-75.0); Platelet Count 211 10^3/uL (150-450); Red Blood Count 5.28 10^6/uL (4.70-6.10); Red Cell Distribution Width 12.9 % (11.0-15.0); White Blood Count 7.9 10^3/uL (4.0-11.0)
[2025-03-31] MEDS: KETOROLAC TROMETHAMINE 30 MG/ML VIAL IVP (04:20)
[2025-03-31] MEDS: METHYLPREDNISOLONE SOD SUCC PF 125 MG/2 ML VIAL IVP (04:20)
[2025-03-31 04:22] LABS: Erythrocyte Sedimentation Rate 7 mm/hr (<=15)
[2025-03-31 04:30] LABS: Anion Gap 18.4; BUN Creatinine Ratio 23.2; C Reactive Protein <0.50 mg/dL (<=0.50); Calcium 9.1 mg/dL (8.5-10.1); Carbon Dioxide 20.1 mmol/L (21.0-32.0); Chloride 106 mmol/L (98-107); Estimated GFR (African America >60 (>=60 mL/min/1.73m^2); Estimated GFR (Non-African Ame >60 (>=60 mL/min/1.73m^2); Glucose 112 mg/dL (74-106); Potassium 3.5 mmol/L (3.5-5.1); Sodium 141 mmol/L (136-145); Uric Acid 5.5 mg/dL (3.5-7.2)
[2025-03-31] MEDS: HYDROMORPHONE HCL 1 MG/ML CARTRIDGE IVP (05:16)
--- NOTE | 2025-03-31 05:54 | PC.NURSE ---
Report called to [facility] [address] [phone].
[2025-03-31] MEDS: HYDROMORPHONE HCL 0.5 MG/0.5 ML SYRINGE IV (09:14)
[2025-03-31 09:16] VITALS: BP 114/72; PULSE 104; TEMP 36.6; O2SAT 97
== END 2025-03-31 09:18 | disposition short-term general hospital (02) ==
PROVIDERS: Emergency Provider Emergency Medicine
DX: M25.461 Effusion, right knee (principal); M25.561 Pain in right knee
CPT/HCPCS: 36415; 73564; 80048; 84550; 85025; 85652; 86140; 96374; 96375; 96376; 99285; J1171; J1885; J2919